=== PATIENT | female | born 1965 | race Caucasian/White ===

== ENCOUNTER 2016-10-13 00:37 | Inpatient (IN) | payer OTHER, MEDICAID ==
[~2016-10-13] VITALS: Ht 172.7 cm; Wt 76.9 kg
[~2016-10-13 00:37] MED LIST: CALC667T2 PO; DULO60CA PO; ERGO1CAP6 PO; GABA-494 PO; GLYB; HYDR200T PO; LANT1000 PO; LEVE500T22 PO; LEVEMIR SC; LORA-622 PO; LORA1TAB12 PO; METO-158 PO; MULT-397 OR; Pantoprazole Sodium Sesquihydr PO; SIMV-13 PO; TRAM50TA2 PO; TRAZ100T2 PO
[2016-10-13 01:54] LABS: Basophils # (auto) 0 uL; Basophils % (auto) 0.4 % (0.0-2.0); Eosinophils # (auto) 0.2 uL; Eosinophils % (auto) 1.8 % (0.0-7.0); Hematocrit 31.8 % (36.0-46.0); Hemoglobin 10.8 g/dL (12.2-16.2); Lymphocytes # (auto) 2.6 uL; Lymphocytes % (auto) 27.5 % (10.0-50.0); Mean Corpuscular Hemoglobin 33.2 pg (28.0-32.0); Mean Corpuscular Volume 97.6 fL (80.0-100.0); Mean Platelet Volume 9.5 fL (7.4-10.4); Monocytes # (auto) 0.7 uL; Neutrophils % (auto) 63.3 % (37.0-80.0); Platelet Count (auto) 221 10^3/uL (140-450); Red Cell Distribution Width 13.9 % (11.6-16.0); White Blood Cell 9.5 10^3/uL (4.4-10.8)
[2016-10-13 02:31] LABS: Urine Bilirubin Negative (Negative); Urine Color Yellow (Yellow); Urine Ketone Negative (Negative); Urine Nitrite Negative (Negative); Urine RBC 26 /hpf (0 - 4); Urine Squamous Epithelial Cell FEW /hpf (<5); Urine WBC Clumps PRESENT /hpf (None Seen); Urine pH 5.5 (5.0-8.0)
[2016-10-13 02:36] LABS: BUN/Creatinine Ratio 8.5; Calcium 6.1 mg/dL (8.5-10.1); Potassium 4.4 mmol/L (3.5-5.1)
[2016-10-13 02:39] LABS: Bilirubin, Total 0.2 mg/dL (0.2-1.0); Total Protein 6.7 g/dL (6.4-8.2)
[2016-10-13] MEDS ORDERED: HYDROmorphone HCL 2 MG/ML VL IV ONE (02:45)
[2016-10-13] MEDS ORDERED: ONDANSETRON HCL 4 MG/2 ML VIAL IV ONE (02:45)
[2016-10-13 02:54] LABS: Urine Blood 1+ /uL (Negative); Urine Glucose 4+ mg/dL (Normal)
[2016-10-13 03:04] LABS: INR 1.05 (0.9-1.15); Partial Thromboplastin Time 27.1 sec (22.64-33.71); Prothrombin Time 10.8 sec (9.37-12.3)
[2016-10-13 03:27] LABS: Magnesium 1.8 mg/dL (1.6-2.6)
[2016-10-13 03:34] LABS: B-Type Natriuretic Peptide 74.43 pg/mL (0-100)
[2016-10-13] MEDS ORDERED: LORA-154 PO (03:47)
[2016-10-13] MEDS ORDERED: ATE50T PO (03:47)
[2016-10-13] MEDS ORDERED: KEP500T PO (03:47)
[2016-10-13] MEDS ORDERED: SIMV-13 PO (03:47)
[2016-10-13] MEDS ORDERED: NEOM1SOL19 OT (03:47)
[2016-10-13] MEDS ORDERED: DULO1CAP3 PO (03:47)
[2016-10-13] MEDS ORDERED: LEVEMIR SC (03:47)
[2016-10-13] MEDS ORDERED: PAR20T PO (03:47)
[2016-10-13] MEDS ORDERED: CALC667T2 PO (03:47)
[2016-10-13] MEDS ORDERED: NIFE20CA PO (03:47)
[2016-10-13] MEDS ORDERED: ASPI-407 PO (03:47)
[2016-10-13] MEDS ORDERED: CHOL20009 PO (03:47)
[2016-10-13] MEDS ORDERED: PANT40T PO (03:47)
[2016-10-13] MEDS ORDERED: LORA1TAB12 PO (03:47)
[2016-10-13] MEDS ORDERED: GABA-494 PO (03:47)
[2016-10-13] MEDS ORDERED: CIPR500T20 PO (03:47)
[2016-10-13] MEDS ORDERED: HYDR200T36 PO (03:47)
[2016-10-13] MEDS ORDERED: NIC21P TOP (03:48)
[2016-10-13 04:12] LABS: Temperature: 21.2 C (20.0-25.0)
[2016-10-13] MEDS ORDERED: InsuLIN REG 1unit/0.01ml Soln (100units/ml) IV ONE (04:45)
[2016-10-13] MEDS ORDERED: CEFTRIAXONE SODIUM 2 GM in D5W 5% 50 ML IV ONE (05:00)
[2016-10-13] MEDS ORDERED: cefTRIAXone 1GM/50ML D5W 50 ML IV ONE (05:23)
[2016-10-13] MEDS ORDERED: cefTRIAXone SOD 1,000 MG VL ONE (05:23)
[2016-10-13] MEDS ORDERED: ACETAMINOPHEN 325 MG TAB PO PRN (06:45)
[2016-10-13] MEDS ORDERED: DEXTROSE (50%) 50ML SYRG IV PRN (06:45)
[2016-10-13] MEDS ORDERED: ONDANSETRON HCL 4 MG/2 ML VIAL IV PRN (06:45)
[2016-10-13] MEDS ORDERED: cloNIDine HCL 0.1 MG TAB PO PRN (06:45)
[2016-10-13] MEDS ORDERED: MORPHINE SULF INJ 2 MG/ML SYRINGE 1ML IV PRN (06:45)
[2016-10-13 08:53] VITALS: BP 134/67
[2016-10-13] MEDS ORDERED: FAMOTIDINE 20 MG TAB PO SCH (10:00)
[2016-10-13] MEDS: ASPirin 325 MG TAB PO SCH (11:00)
[2016-10-13] MEDS: FLUCONAZOLE 100 MG TAB PO SCH (11:01)
[2016-10-13] MEDS: CALCIUM ACETATE 667 MG CAP PO SCH ×3 (11:01→18:07)
[2016-10-13] MEDS: LEVETIRACETAM 500 MG TAB PO SCH ×2 (11:02→21:45)
[2016-10-13] MEDS: ATENOLOL 50 MG TAB PO SCH (11:03)
[2016-10-13] MEDS: FAMOTIDINE 20 MG TAB PO SCH (11:04)
[2016-10-13] MEDS: NIFEdipine ER 30 MG TAB PO SCH (11:04)
[2016-10-13] MEDS: ENOXAPARIN SOD 30 MG/0.3 ML SYRINGE SC SCH (11:12)
[2016-10-13] MEDS: ACCU-CHEK COMFORT CURVE STRIP VI SCH ×3 (12:00→21:51)
[2016-10-13 13:48] VITALS: BP 147/64
[2016-10-13] MEDS: GABAPENTIN 100 MG CAP PO SCH ×2 (14:57→21:46)
[2016-10-13] MEDS: traMADol HCL 50 MG TAB PO PRN (14:57)
[2016-10-13] MEDS: LORazepam 0.5 MG TAB PO PRN (14:58)
[2016-10-13 17:29] VITALS: BP 140/71
[2016-10-13] MEDS: InsuLIN REG 1unit/0.01ml Soln (100units/ml) SC SCH ×3 (18:04→21:55)
[2016-10-13 20:00] VITALS: BP 140/73
[2016-10-13] MEDS: MORPHINE SULF INJ 2 MG/ML SYRINGE 1ML IV PRN (20:44)
[2016-10-13 22:00] VITALS: BP 140/73
[2016-10-14] VITALS (7 sets, daily range): BP systolic 127–147; BP diastolic 60–72
[2016-10-14] MEDS: MORPHINE SULF INJ 2 MG/ML SYRINGE 1ML IV PRN (02:50)
[2016-10-14] MEDS: traMADol HCL 50 MG TAB PO PRN ×3 (03:18→22:00)
[2016-10-14] MEDS: cefTRIAXone 1GM/50ML D5W 50 ML IV SCH (05:38)
[2016-10-14] MEDS: GABAPENTIN 100 MG CAP PO SCH ×3 (05:38→21:57)
[2016-10-14] MEDS: ACCU-CHEK COMFORT CURVE STRIP VI SCH ×4 (05:40→23:58)
[2016-10-14] MEDS: InsuLIN REG 1unit/0.01ml Soln (100units/ml) SC SCH ×3 (05:40→18:24)
[2016-10-14 06:43] LABS: Basophils # (auto) 0 uL; Basophils % (auto) 0.3 % (0.0-2.0); Eosinophils # (auto) 0.3 uL; Eosinophils % (auto) 2.6 % (0.0-7.0); Hematocrit 34.2 % (36.0-46.0); Hemoglobin 11.5 g/dL (12.2-16.2); Lymphocytes # (auto) 2.7 uL; Lymphocytes % (auto) 23.6 % (10.0-50.0); Mean Corpuscular Hemoglobin 33.1 pg (28.0-32.0); Mean Corpuscular Hgb Conc. 33.7 g/dL (32.0-36.0); Mean Corpuscular Volume 98.3 fL (80.0-100.0); Mean Platelet Volume 10.2 fL (7.4-10.4); Monocytes # (auto) 0.6 uL; Monocytes % (auto) 5.3 % (0.0-12.0); Neutrophils # (auto) 7.7 uL; Neutrophils % (auto) 68.2 % (37.0-80.0); Platelet Count (auto) 246 10^3/uL (140-450); Red Cell Distribution Width 13.6 % (11.6-16.0); White Blood Cell 11.3 10^3/uL (4.4-10.8)
[2016-10-14] MEDS: HYDROmorphone HCL 2 MG/ML VL IV PRN ×2 (07:02→20:19)
[2016-10-14 07:19] LABS: Albumin 3.6 g/dL (3.4-5.0); BUN/Creatinine Ratio 11.2; Bilirubin, Total 0.4 mg/dL (0.2-1.0); Calcium 6.4 mg/dL (8.5-10.1); Magnesium 1.8 mg/dL (1.6-2.6); Potassium 5.2 mmol/L (3.5-5.1); Total Protein 7.6 g/dL (6.4-8.2)
[2016-10-14] MEDS: ASPirin 325 MG TAB PO SCH (10:19)
[2016-10-14] MEDS: FAMOTIDINE 20 MG TAB PO SCH (10:20)
[2016-10-14] MEDS: FLUCONAZOLE 100 MG TAB PO SCH (10:20)
[2016-10-14] MEDS: ENOXAPARIN SOD 30 MG/0.3 ML SYRINGE SC SCH (10:21)
[2016-10-14] MEDS: NIFEdipine ER 30 MG TAB PO SCH (10:21)
[2016-10-14] MEDS: LEVETIRACETAM 500 MG TAB PO SCH ×2 (10:21→21:57)
[2016-10-14] MEDS: ATENOLOL 50 MG TAB PO SCH (10:21)
[2016-10-14] MEDS: LORazepam 0.5 MG TAB PO PRN ×2 (13:59→23:15)
[2016-10-14] MEDS: CALCIUM ACETATE 667 MG CAP PO SCH ×3 (15:07→18:23)
[2016-10-15] VITALS (7 sets, daily range): BP systolic 109–127; BP diastolic 57–69
[2016-10-15] MEDS: traMADol HCL 50 MG TAB PO PRN (04:07)
[2016-10-15] MEDS: cefTRIAXone 1GM/50ML D5W 50 ML IV SCH (05:31)
[2016-10-15] MEDS: GABAPENTIN 100 MG CAP PO SCH ×3 (05:31→22:00)
[2016-10-15] MEDS: ACCU-CHEK COMFORT CURVE STRIP VI SCH ×3 (05:47→17:59)
[2016-10-15] MEDS: InsuLIN REG 1unit/0.01ml Soln (100units/ml) SC SCH ×4 (05:49→18:07)
[2016-10-15 07:07] LABS: BUN/Creatinine Ratio 13.6; Calcium 6.6 mg/dL (8.5-10.1); Potassium 4.8 mmol/L (3.5-5.1)
[2016-10-15] MEDS ORDERED: SODIUM CHL 0.9% 1000 ML BAG XX ONE (08:00)
[2016-10-15] MEDS: ASPirin 325 MG TAB PO SCH (09:12)
[2016-10-15] MEDS: CALCIUM ACETATE 667 MG CAP PO SCH ×3 (09:13→17:59)
[2016-10-15] MEDS: LEVETIRACETAM 500 MG TAB PO SCH ×2 (09:13→22:01)
[2016-10-15] MEDS: FLUCONAZOLE 100 MG TAB PO SCH (09:15)
[2016-10-15] MEDS: FAMOTIDINE 20 MG TAB PO SCH (09:15)
[2016-10-15] MEDS: ATENOLOL 50 MG TAB PO SCH (09:15)
[2016-10-15] MEDS: NIFEdipine ER 30 MG TAB PO SCH (09:16)
[2016-10-15] MEDS: ENOXAPARIN SOD 30 MG/0.3 ML SYRINGE SC SCH (09:16)
[2016-10-15] MEDS: HYDROmorphone HCL 2 MG/ML VL IV PRN ×3 (09:17→22:00)
[2016-10-15] MEDS: LORazepam 0.5 MG TAB PO PRN (22:00)
[2016-10-16 05:00] VITALS: BP 111/59
[2016-10-16] MEDS: cefTRIAXone 1GM/50ML D5W 50 ML IV SCH (05:58)
[2016-10-16] MEDS: InsuLIN REG 1unit/0.01ml Soln (100units/ml) SC SCH ×3 (06:00→11:42)
[2016-10-16] MEDS: GABAPENTIN 100 MG CAP PO SCH (06:09)
[2016-10-16] MEDS: HYDROmorphone HCL 2 MG/ML VL IV PRN (06:09)
[2016-10-16] MEDS: ACCU-CHEK COMFORT CURVE STRIP VI SCH ×3 (06:16→11:41)
[2016-10-16 06:48] LABS: BUN/Creatinine Ratio 14.1; Calcium 6.6 mg/dL (8.5-10.1); Potassium 4.3 mmol/L (3.5-5.1)
[2016-10-16 08:00] VITALS: BP 125/52
[2016-10-16] MEDS: NIFEdipine ER 30 MG TAB PO SCH (10:00)
[2016-10-16] MEDS: ATENOLOL 50 MG TAB PO SCH (10:00)
[2016-10-16] MEDS: ENOXAPARIN SOD 30 MG/0.3 ML SYRINGE SC SCH (11:34)
[2016-10-16] MEDS: CALCIUM ACETATE 667 MG CAP PO SCH (11:34)
[2016-10-16] MEDS: FLUCONAZOLE 100 MG TAB PO SCH (11:34)
[2016-10-16] MEDS: LEVETIRACETAM 500 MG TAB PO SCH (11:34)
[2016-10-16] MEDS: FAMOTIDINE 20 MG TAB PO SCH (11:35)
[2016-10-16] MEDS: ASPirin 325 MG TAB PO SCH (11:35)
[2016-10-16 12:30] VITALS: BP 143/76
[2016-10-16 13:52] VITALS: BP 143/76
== END 2016-10-16 14:50 | disposition home or self-care (01) | DRG 690 ==
LOC: ER 00:43 → OVERFLOW 00:44 → EAST 09:37 → CENTRAL 09:49
PROVIDERS: ADMIT Internal Medicine; ATTEND Internal Medicine
PROC: 5A1D00Z (ICD-10-PCS; principal; 2016-10-16)
DX: N10 Acute pyelonephritis (principal); B48.8 Other specified mycoses; I12.0 Hypertensive chronic kidney disease with stage 5 chronic kidney disease or end stage renal disease; N18.6 End stage renal disease; D63.8 Anemia in other chronic diseases classified elsewhere; E11.21 Type 2 diabetes mellitus with diabetic nephropathy; E78.5 Hyperlipidemia, unspecified; E11.22 Type 2 diabetes mellitus with diabetic chronic kidney disease; F17.210 Nicotine dependence, cigarettes, uncomplicated; M54.9 Dorsalgia, unspecified; Z82.49 Family history of ischemic heart disease and other diseases of the circulatory system; Z83.3 Family history of diabetes mellitus; Z88.5 Allergy status to narcotic agent; Z99.2 Dependence on renal dialysis; Z88.1 Allergy status to other antibiotic agents; Z79.82 Long term (current) use of aspirin; Z79.899 Other long term (current) drug therapy; Z90.710 Acquired absence of both cervix and uterus; Z84.1 Family history of disorders of kidney and ureter; Z79.4 Long term (current) use of insulin
CPT/HCPCS: 36415; 71010; 80048; 80053; 81001; 82150; 82962; 83036; 83690; 83735; 83880; 84484; 85025; 85610; 85730; 87081; 87086; 90935; 96365; 96375; J0696; J1815; J2405; J7060

== ENCOUNTER 2017-04-26 08:33 | Emergency (ER) | payer OTHER, MEDICAID ==
[~2017-04-26] VITALS: Ht 172.7 cm; Wt 78.6 kg
[~2017-04-26 08:33] MED LIST changes: +ASPI-407 PO; +ATE50T PO; +CHOL20009 PO; +GAB100C PO; +HYDR-2651 PO; -METO-158 PO; +NIC21P TOP; +NIF30XLT PO; +PANT40T PO; +PAR20T PO; -Pantoprazole Sodium Sesquihydr PO
[2017-04-26 09:56] LABS: Basophils # (auto) 0.1 uL; Basophils % (auto) 0.7 % (0.0-2.0); Eosinophils # (auto) 0.2 uL; Hematocrit 27.7 % (36.0-46.0); Hemoglobin 9.7 g/dL (12.2-16.2); Lymphocytes # (auto) 1.7 uL; Mean Platelet Volume 8.8 fL (6.9-10.8); Monocytes # (auto) 0.7 uL; Platelet Count (auto) 169 10^3/uL (140-450)
[2017-04-26 10:00] LABS: Eosinophils % (auto) 2.5 % (0.0-7.0); Lymphocytes % (auto) 18.9 % (10.0-50.0); Mean Corpuscular Hemoglobin 35.5 pg (28.0-32.0); Mean Corpuscular Volume 101.3 fL (80.0-100.0); Monocytes % (auto) 7.3 % (0.0-12.0); Neutrophils # (auto) 6.5 uL; Neutrophils % (auto) 70.6 % (37.0-80.0); Red Cell Distribution Width 14.1 % (11.8-14.3); White Blood Cell 9.2 10^3/uL (4.4-10.8)
[2017-04-26 10:04] LABS: Albumin 3.5 g/dL (3.4-5.0); BUN/Creatinine Ratio 10.7; Bilirubin, Total 0.3 mg/dL (0.2-1.0); Calcium 6.3 mg/dL (8.5-10.1); Potassium 4.6 mmol/L (3.5-5.1); Total Protein 7.3 g/dL (6.4-8.2)
[2017-04-26 11:20] VITALS: BP 168/95
[2017-04-26 11:59] LABS: Urine Bilirubin Negative (Negative); Urine Blood 2+ /uL (Negative); Urine Color Yellow (Yellow); Urine Glucose Normal (Normal); Urine Ketone Negative (Negative); Urine Nitrite Negative (Negative); Urine RBC 14 /hpf (0 - 4); Urine Squamous Epithelial Cell FEW /hpf (<5); Urine Urobilinogen Normal (Negative); Urine WBC Clumps PRESENT /hpf (None Seen); Urine pH 5.5 (5.0-8.0)
[2017-04-26] MEDS ORDERED: CIPROFLOXACIN HCL 500 MG TAB PO ONE (12:30)
== END 2017-04-26 12:46 | disposition home or self-care (01) ==
LOC: ER 08:33
DX: N39.0 Urinary tract infection, site not specified (principal); E11.22 Type 2 diabetes mellitus with diabetic chronic kidney disease; I12.0 Hypertensive chronic kidney disease with stage 5 chronic kidney disease or end stage renal disease; N18.6 End stage renal disease; Z99.2 Dependence on renal dialysis; F17.210 Nicotine dependence, cigarettes, uncomplicated; Z79.4 Long term (current) use of insulin; Z88.6 Allergy status to analgesic agent; Z88.1 Allergy status to other antibiotic agents
CPT/HCPCS: 36415; 51702; 80053; 81001; 85025

== ENCOUNTER 2017-06-30 20:20 | Emergency (ER) | payer OTHER, MEDICAID ==
[~2017-06-30] VITALS: Ht 172.7 cm; Wt 81.6 kg
[~2017-06-30 20:20] MED LIST changes: -HYDR-2651 PO; +HYDR25TA35 PO
[2017-06-30 21:10] LABS: Urine Bilirubin Negative (Negative); Urine Blood 1+ /uL (Negative); Urine Color Yellow (Yellow); Urine Glucose Normal (Normal); Urine Ketone Negative (Negative); Urine Mucus FEW (None Seen); Urine Nitrite Negative (Negative); Urine RBC 12 /hpf (0 - 4); Urine Squamous Epithelial Cell FEW /hpf (<5); Urine Urobilinogen Normal (Negative); Urine WBC Clumps PRESENT /hpf (None Seen)
[2017-06-30 22:17] LABS: Basophils # (auto) 0.1 uL; Eosinophils # (auto) 0.2 uL; Mean Platelet Volume 8.3 fL (6.9-10.8); Monocytes # (auto) 0.7 uL; Nucleated Red Blood Cells % 0.1 %; Platelet Count (auto) 175 10^3/uL (140-450)
[2017-06-30 22:20] LABS: Basophils % (auto) 0.7 % (0.0-2.0); Eosinophils % (auto) 2.2 % (0.0-7.0); Hematocrit 26.8 % (36.0-46.0); Hemoglobin 9.6 g/dL (12.2-16.2); Mean Corpuscular Hemoglobin 36.8 pg (28.0-32.0); Mean Corpuscular Hgb Conc. 35.7 g/dL (32.0-36.0); Mean Corpuscular Volume 102.9 fL (80.0-100.0); Neutrophils # (auto) 7.1 uL; Neutrophils % (auto) 70.1 % (37.0-80.0); Red Cell Distribution Width 14.2 % (11.8-14.3); White Blood Cell 10.2 10^3/uL (4.4-10.8)
[2017-06-30 22:37] LABS: Albumin 3.5 g/dL (3.4-5.0); BUN/Creatinine Ratio 11.6; Potassium 4.8 mmol/L (3.5-5.1)
[2017-06-30 22:40] LABS: Bilirubin, Total 0.3 mg/dL (0.2-1.0); Total Protein 7.2 g/dL (6.4-8.2)
[2017-07-01] MEDS ORDERED: NALBUPHINE HCL 10 MG/1ml INJECTION IV ONE (00:45)
[2017-07-01] MEDS ORDERED: TEMAZEPAM 15 MG CAP PO ONE (01:00)
[2017-07-01 02:10] VITALS: BP 173/79
== END 2017-07-01 01:16 | disposition home or self-care (01) ==
LOC: ER 20:20
DX: M79.602 Pain in left arm (principal); E11.22 Type 2 diabetes mellitus with diabetic chronic kidney disease; I12.0 Hypertensive chronic kidney disease with stage 5 chronic kidney disease or end stage renal disease; N18.6 End stage renal disease; E78.5 Hyperlipidemia, unspecified; D64.9 Anemia, unspecified; F17.210 Nicotine dependence, cigarettes, uncomplicated; Z99.2 Dependence on renal dialysis; Z79.4 Long term (current) use of insulin; Z79.82 Long term (current) use of aspirin
CPT/HCPCS: 36415; 73200; 80053; 81001; 85025; 96374; 99285; J2300

== ENCOUNTER 2017-07-01 18:41 | Emergency (ER) | payer OTHER, MEDICAID ==
[~2017-07-01] VITALS: Ht 172.7 cm; Wt 77.1 kg
[2017-07-01 20:57] LABS: Basophils # (auto) 0.1 uL; Eosinophils # (auto) 0.2 uL; Mean Corpuscular Volume 103.4 fL (80.0-100.0)
[2017-07-01 20:59] LABS: Basophils % (auto) 0.6 % (0.0-2.0); Eosinophils % (auto) 2.7 % (0.0-7.0); Hematocrit 25.9 % (36.0-46.0); Lymphocytes # (auto) 1.6 uL; Lymphocytes % (auto) 17.7 % (10.0-50.0); Mean Corpuscular Hemoglobin 36.1 pg (28.0-32.0); Mean Corpuscular Hgb Conc. 34.9 g/dL (32.0-36.0); Mean Platelet Volume 8.3 fL (6.9-10.8); Monocytes # (auto) 0.7 uL; Monocytes % (auto) 7.2 % (0.0-12.0); Neutrophils # (auto) 6.6 uL; Neutrophils % (auto) 71.8 % (37.0-80.0); Nucleated Red Blood Cells % 0.1 %; Platelet Count (auto) 163 10^3/uL (140-450); Red Cell Distribution Width 14.5 % (11.8-14.3); White Blood Cell 9.2 10^3/uL (4.4-10.8)
[2017-07-01] MEDS ORDERED: NALBUPHINE HCL 10 MG/1ml INJECTION IV ONE (21:00)
[2017-07-01] MEDS ORDERED: ONDANSETRON HCL 4 MG/2 ML VIAL IV ONE (21:00)
[2017-07-01] MEDS ORDERED: SODIUM CHLORIDE 0.9% 1,000 ML IV ONE (21:00)
[2017-07-01 21:14] LABS: Albumin 3.5 g/dL (3.4-5.0); BUN/Creatinine Ratio 12.7; Bilirubin, Total 0.3 mg/dL (0.2-1.0); Calcium 7.1 mg/dL (8.5-10.1); Total Protein 7.2 g/dL (6.4-8.2)
[2017-07-01] MEDS ORDERED: TEMAZEPAM 15 MG CAP PO ONE (22:00)
[2017-07-02 00:14] VITALS: BP 153/73
[2017-07-02 00:38] LABS: Urine Bilirubin Negative (Negative); Urine Blood 2+ /uL (Negative); Urine Color Yellow (Yellow); Urine Glucose TRACE mg/dL (Normal); Urine Ketone Negative (Negative); Urine Nitrite Negative (Negative); Urine RBC 33 /hpf (0 - 4); Urine Urobilinogen Normal (Negative); Urine WBC Clumps PRESENT /hpf (None Seen)
== END 2017-07-02 01:21 | disposition home or self-care (01) ==
LOC: ER 18:41
DX: E11.22 Type 2 diabetes mellitus with diabetic chronic kidney disease (principal); I12.0 Hypertensive chronic kidney disease with stage 5 chronic kidney disease or end stage renal disease; N18.6 End stage renal disease; G89.4 Chronic pain syndrome; G47.00 Insomnia, unspecified; E78.5 Hyperlipidemia, unspecified; Z79.4 Long term (current) use of insulin; F17.210 Nicotine dependence, cigarettes, uncomplicated; Z90.710 Acquired absence of both cervix and uterus; Z79.82 Long term (current) use of aspirin; Z88.6 Allergy status to analgesic agent; Z88.8 Allergy status to other drugs, medicaments and biological substances
CPT/HCPCS: 36415; 51702; 80053; 80307; 81001; 85025; 93005; 94761; 96361; 96374; 96375; 99285; J2300; J2405; J7030

== ENCOUNTER 2017-07-25 21:27 | Emergency (ER) | payer OTHER, MEDICAID ==
[~2017-07-25] VITALS: Ht 177.8 cm; Wt 80.7 kg
[~2017-07-25 21:27] MED LIST changes: -GABA-494 PO; +GABA100C9 PO
[2017-07-25 21:42] VITALS: BP 190/76
[2017-07-26] MEDS ORDERED: cefTRIAXone SOD 1,000 MG VL IM ONE (05:30)
[2017-07-26] MEDS ORDERED: HYDROmorphone HCL 2 MG/ML VL IM ONE (05:30)
[2017-07-26] MEDS ORDERED: ONDANSETRON ODT 4 MG TAB PO ONE (05:30)
[2017-07-26 05:50] LABS: Urine Bacteria FEW /hpf (None Seen); Urine Blood TRACE /uL (Negative); Urine Specific Gravity 1.019 (1.001-1.035); Urine WBC 348 /hpf (0 - 5)
== END 2017-07-26 07:08 | disposition home or self-care (01) ==
LOC: EDBD 21:27 → ER 21:41
DX: I12.0 Hypertensive chronic kidney disease with stage 5 chronic kidney disease or end stage renal disease (principal); N18.6 End stage renal disease; N39.0 Urinary tract infection, site not specified; E11.22 Type 2 diabetes mellitus with diabetic chronic kidney disease; E78.5 Hyperlipidemia, unspecified; M79.7 Fibromyalgia; F17.210 Nicotine dependence, cigarettes, uncomplicated; Z88.6 Allergy status to analgesic agent; Z88.8 Allergy status to other drugs, medicaments and biological substances; Z79.82 Long term (current) use of aspirin; Z90.710 Acquired absence of both cervix and uterus; Z79.4 Long term (current) use of insulin
CPT/HCPCS: 81001; 96372; 99284; J0696; J1170; Q0162

== ENCOUNTER 2017-08-10 15:59 | Emergency (ER) | payer OTHER, MEDICAID ==
[~2017-08-10] VITALS: Ht 172.7 cm; Wt 83.1 kg
[2017-08-10 17:59] VITALS: BP 159/58
[2017-08-10] MEDS ORDERED: KETOROLAC TROMETH 60MG/2ML VIAL IM ONE (19:30)
== END 2017-08-10 19:45 | disposition home or self-care (01) ==
LOC: ER 16:02
DX: M79.605 Pain in left leg (principal); M79.604 Pain in right leg; E11.22 Type 2 diabetes mellitus with diabetic chronic kidney disease; I12.0 Hypertensive chronic kidney disease with stage 5 chronic kidney disease or end stage renal disease; N18.6 End stage renal disease; E78.5 Hyperlipidemia, unspecified; F17.210 Nicotine dependence, cigarettes, uncomplicated; Z99.2 Dependence on renal dialysis; Z90.710 Acquired absence of both cervix and uterus; Z88.6 Allergy status to analgesic agent; Z79.4 Long term (current) use of insulin; Z79.82 Long term (current) use of aspirin
CPT/HCPCS: 82962; 96372; 99283; J1885

== ENCOUNTER 2018-04-06 11:26 | Emergency (ER) | payer OTHER, MEDICAID ==
[~2018-04-06] VITALS: Ht 172.7 cm; Wt 81.6 kg
[~2018-04-06 11:26] MED LIST changes: +HYDR-4296 PO; +HYDR-4441 PO; -HYDR200T PO; -HYDR25TA35 PO
[2018-04-06] MEDS ORDERED: SODIUM CHLORIDE 0.9% 1,000 ML IV ONE (12:33)
[2018-04-06 12:40] LABS: Basophils # (auto) 0 uL; Basophils % (auto) 0.3 % (0.0-2.0); Eosinophils # (auto) 0.1 uL; Eosinophils % (auto) 1.4 % (0.0-7.0); Hematocrit 32.4 % (36.0-46.0); Hemoglobin 11.3 g/dL (12.2-16.2); Lymphocytes # (auto) 1.4 uL; Lymphocytes % (auto) 13.5 % (10.0-50.0); Mean Corpuscular Hemoglobin 33.5 pg (28.0-32.0); Mean Corpuscular Hgb Conc. 34.7 g/dL (32.0-36.0); Mean Corpuscular Volume 96.5 fL (80.0-100.0); Monocytes # (auto) 0.7 uL; Monocytes % (auto) 7.1 % (0.0-12.0); Neutrophils % (auto) 77.7 % (37.0-80.0); Platelet Count (auto) 234 10^3/uL (140-450); Red Blood Cells 3.35 10^6/uL (4.0-5.20); Red Cell Distribution Width 15.1 % (11.8-14.3); White Blood Cell 10.2 10^3/uL (4.4-10.8)
[2018-04-06] MEDS ORDERED: ONDANSETRON HCL 4 MG/2 ML VIAL IV ONE (12:45)
[2018-04-06] MEDS ORDERED: VANCOMYCIN 1GM/250ML 250 ML IV ONE (12:45)
[2018-04-06] MEDS ORDERED: NALBUPHINE HCL 10 MG/1ml INJECTION IV ONE ×2 (12:45→16:15)
[2018-04-06 12:58] LABS: Alanine Aminotransferase 12 U/L (13-56); Albumin 3.3 g/dL (3.4-5.0); Anion Gap 10 (5-15); Aspartate Aminotransferase 10 U/L (15-37); Blood Urea Nitrogen 63 mg/dL (7-18); Calcium 7.7 mg/dL (8.5-10.1); Carbon Dioxide 26 mmol/L (21-32); Chloride 103 mmol/L (98-107); GFR African American 9 mL/min; GFR Non-African American 7 mL/min; Glucose 98 mg/dL (74-106); Potassium 4.5 mmol/L (3.5-5.1); Sodium 139 mmol/L (136-145)
[2018-04-06 13:02] LABS: Alkaline Phosphatase 99 U/L (45-117); Bilirubin, Total 0.5 mg/dL (0.2-1.0); Total Protein 7.3 g/dL (6.4-8.2)
[2018-04-06 13:15] LABS: INR 0.96 (0.9-1.15); Partial Thromboplastin Time 28.8 sec (23.78-33.04); Prothrombin Time 10.3 sec (9.27-12.13)
[2018-04-06 16:38] LABS: Urine Bacteria FEW /hpf (None Seen); Urine Blood Negative /uL (Negative); Urine Specific Gravity 1.018 (1.001-1.035); Urine WBC 787 /hpf (0 - 5); Urine WBC Clumps PRESENT /hpf (None Seen)
[2018-04-06 17:59] VITALS: BP 142/62
== END 2018-04-06 19:04 | disposition short-term general hospital (02) ==
LOC: ER 11:26
DX: T82.858A Stenosis of other vascular prosthetic devices, implants and grafts, initial encounter (principal); N17.9 Acute kidney failure, unspecified; L03.114 Cellulitis of left upper limb; E03.9 Hypothyroidism, unspecified; D64.89 Other specified anemias; I25.810 Atherosclerosis of coronary artery bypass graft(s) without angina pectoris; E11.22 Type 2 diabetes mellitus with diabetic chronic kidney disease; I12.0 Hypertensive chronic kidney disease with stage 5 chronic kidney disease or end stage renal disease; N18.6 End stage renal disease; I25.2 Old myocardial infarction; E78.5 Hyperlipidemia, unspecified; F17.210 Nicotine dependence, cigarettes, uncomplicated; E46 Unspecified protein-calorie malnutrition; Z88.5 Allergy status to narcotic agent; Z88.1 Allergy status to other antibiotic agents; Z88.8 Allergy status to other drugs, medicaments and biological substances; Z79.4 Long term (current) use of insulin; Z79.899 Other long term (current) drug therapy; Z95.1 Presence of aortocoronary bypass graft; Z99.2 Dependence on renal dialysis; Z90.710 Acquired absence of both cervix and uterus; Z68.27 Body mass index [BMI] 27.0-27.9, adult; Y84.1 Kidney dialysis as the cause of abnormal reaction of the patient, or of later complication, without mention of misadventure at the time of the procedure; Y92.89 Other specified places as the place of occurrence of the external cause
CPT/HCPCS: 36415; 71046; 80053; 81001; 83735; 84443; 84484; 85025; 85610; 85730; 93005; 93930; 94761; 96365; 96375; 96376; 99285; J2300; J2405; J3370; J7030

== ENCOUNTER 2018-12-17 15:34 | Emergency (ER) | payer OTHER, MEDICAID ==
[~2018-12-17] VITALS: Ht 172.7 cm; Wt 83.0 kg
[2018-12-17 16:46] LABS: Eosinophils % (auto) 0.8 % (0.0-7.0); Hemoglobin 10.5 g/dL (12.2-16.2); Lymphocytes # (auto) 0.7 uL; Lymphocytes % (auto) 11.1 % (10.0-50.0); Monocytes # (auto) 0.5 uL; Nucleated Red Blood Cells % 0.1 %
[2018-12-17 16:47] LABS: Basophils # (auto) 0 uL; Basophils % (auto) 0.6 % (0.0-2.0); Eosinophils # (auto) 0 uL; Mean Corpuscular Hemoglobin 34.6 pg (28.0-32.0); Mean Corpuscular Hgb Conc. 34.9 g/dL (32.0-36.0); Monocytes % (auto) 8.4 % (0.0-12.0); Neutrophils % (auto) 79.1 % (37.0-80.0); Platelet Count (auto) 150 10^3/uL (140-450); Red Blood Cells 3.03 10^6/uL (4.0-5.20); White Blood Cell 6.4 10^3/uL (4.4-10.8)
[2018-12-17 17:04] LABS: Albumin 3.4 g/dL (3.4-5.0); BUN/Creatinine Ratio 5.2; Calcium 7.8 mg/dL (8.5-10.1); Potassium 3.6 mmol/L (3.5-5.1)
[2018-12-17 17:06] LABS: Bilirubin, Total 0.5 mg/dL (0.2-1.0); Total Protein 7.2 g/dL (6.4-8.2)
[2018-12-17 18:15] VITALS: BP 98/60
[2018-12-17] MEDS ORDERED: SODIUM CHLORIDE 0.9% 250 ML IV ONE (18:32)
[2018-12-17] MEDS ORDERED: InsuLIN REG 1unit/0.01ml Soln (100units/ml) SC ONE (18:45)
[2018-12-17 19:11] LABS: INR 1.01 (0.9-1.15); Partial Thromboplastin Time 28.5 sec (23.64-32.05)
== END 2018-12-17 19:30 | disposition left against medical advice (07) ==
LOC: EDUNIT# 15:34 → EDBD 15:34 → ER 15:44
DX: T82.838A Hemorrhage due to vascular prosthetic devices, implants and grafts, initial encounter (principal); E11.65 Type 2 diabetes mellitus with hyperglycemia; E11.22 Type 2 diabetes mellitus with diabetic chronic kidney disease; I12.0 Hypertensive chronic kidney disease with stage 5 chronic kidney disease or end stage renal disease; N18.6 End stage renal disease; I25.810 Atherosclerosis of coronary artery bypass graft(s) without angina pectoris; E78.5 Hyperlipidemia, unspecified; I25.2 Old myocardial infarction; F17.210 Nicotine dependence, cigarettes, uncomplicated; Z88.5 Allergy status to narcotic agent; Z88.8 Allergy status to other drugs, medicaments and biological substances; Z88.1 Allergy status to other antibiotic agents; Z79.82 Long term (current) use of aspirin; Z79.4 Long term (current) use of insulin; Z79.899 Other long term (current) drug therapy; Z99.2 Dependence on renal dialysis; Z90.710 Acquired absence of both cervix and uterus; Z95.1 Presence of aortocoronary bypass graft; Y84.1 Kidney dialysis as the cause of abnormal reaction of the patient, or of later complication, without mention of misadventure at the time of the procedure; Y92.89 Other specified places as the place of occurrence of the external cause
CPT/HCPCS: 36415; 71045; 80053; 85025; 85610; 85730; 94761

== ENCOUNTER 2019-01-19 09:09 | Emergency (ER) | payer OTHER, MEDICAID ==
[~2019-01-19] VITALS: Ht 172.7 cm; Wt 81.6 kg
[2019-01-19 09:42] LABS: Urine Bacteria NONE SEEN /hpf (None Seen); Urine Blood TRACE /uL (Negative); Urine Specific Gravity 1.007 (1.001-1.035); Urine WBC 146 /hpf (0 - 5)
[2019-01-19 10:07] LABS: Basophils # (auto) 0.1 uL; Basophils % (auto) 0.9 % (0.0-2.0); Eosinophils # (auto) 0.1 uL; Eosinophils % (auto) 1.7 % (0.0-7.0); Hematocrit 33.7 % (36.0-46.0); Hemoglobin 11.5 g/dL (12.2-16.2); Lymphocytes % (auto) 13.1 % (10.0-50.0); Mean Corpuscular Hemoglobin 33.9 pg (28.0-32.0); Mean Corpuscular Hgb Conc. 34.2 g/dL (32.0-36.0); Mean Corpuscular Volume 98.9 fL (80.0-100.0); Monocytes # (auto) 0.5 uL; Monocytes % (auto) 6.3 % (0.0-12.0); Neutrophils # (auto) 5.9 uL; Platelet Count (auto) 140 10^3/uL (140-450); Red Blood Cells 3.41 10^6/uL (4.0-5.20); Red Cell Distribution Width 15.1 % (11.8-14.3); White Blood Cell 7.6 10^3/uL (4.4-10.8)
[2019-01-19 10:49] VITALS: BP 195/96
[2019-01-19] MEDS ORDERED: cefTRIAXone 1GM/50ML D5W 50 ML IV ONE (11:00)
[2019-01-19 11:55] LABS: Alanine Aminotransferase 17 U/L (13-56)
[2019-01-19 12:20] LABS: Potassium 5.3 mmol/L (3.5-5.1)
[2019-01-19 12:21] LABS: Carbon Dioxide 25 mmol/L (21-32); Chloride 94 mmol/L (98-107); Glucose 120 mg/dL (74-106)
[2019-01-19 12:23] LABS: BUN/Creatinine Ratio 9.8; Blood Urea Nitrogen 97 mg/dL (7-18); GFR African American 5 mL/min; GFR Non-African American 4 mL/min
[2019-01-19 12:24] LABS: Albumin 3.9 g/dL (3.4-5.0); Alkaline Phosphatase 114 U/L (45-117); Aspartate Aminotransferase 7 U/L (15-37); Bilirubin, Total 0.5 mg/dL (0.2-1.0); Calcium 8.1 mg/dL (8.5-10.1); Magnesium 2.6 mg/dL (1.6-2.6); Total Protein 7.9 g/dL (6.4-8.2)
[2019-01-19 12:47] LABS: Anion Gap 13 (5-15); Sodium 132 mmol/L (136-145)
== END 2019-01-19 12:02 | disposition home or self-care (01) ==
LOC: EDBD 09:09 → ER 09:14
DX: I12.0 Hypertensive chronic kidney disease with stage 5 chronic kidney disease or end stage renal disease (principal); E11.22 Type 2 diabetes mellitus with diabetic chronic kidney disease; N18.6 End stage renal disease; N39.0 Urinary tract infection, site not specified; E78.5 Hyperlipidemia, unspecified; I25.2 Old myocardial infarction; Z90.710 Acquired absence of both cervix and uterus; Z98.61 Coronary angioplasty status; Z79.899 Other long term (current) drug therapy; Z88.6 Allergy status to analgesic agent; Z88.1 Allergy status to other antibiotic agents; Z99.2 Dependence on renal dialysis
CPT/HCPCS: 36415; 70450; 71045; 80053; 81001; 83735; 84484; 85025; 93005; 94761; 96365; 99284; J0696

== ENCOUNTER 2019-11-05 12:50 | Inpatient (IN) | payer OTHER, MEDICAID ==
[~2019-11-05] VITALS: Ht 167.6 cm; Wt 90.6 kg
[~2019-11-05 12:50] MED LIST changes: +HYDR-4188 PO; -HYDR-4441 PO; -NIF30XLT PO; +NIFE1TAB36 PO; -TRAZ100T2 PO; +TRAZ100T3 PO
[2019-11-05] MEDS ORDERED: HYDROmorphone HCL 2 MG/ML VL IV ONE (13:15)
[2019-11-05] MEDS ORDERED: ONDANSETRON HCL 4 MG/2 ML VIAL IV ONE (13:15)
[2019-11-05 13:40] LABS: Basophils # (auto) 0 10 ^3/uL (0-0.2); Basophils % (auto) 0.4 % (0.0-2.0); Eosinophils # (auto) 0.1 10 ^3/uL (0-0.8); Lymphocytes # (auto) 0.9 10 ^3/uL (0.4-5.4); Monocytes # (auto) 0.6 10 ^3/uL (0-1.3); White Blood Cell 7.3 10^3/uL (4.4-10.8)
[2019-11-05 13:42] LABS: Eosinophils % (auto) 1.9 % (0.0-7.0); Lymphocytes % (auto) 11.7 % (10.0-50.0); Mean Corpuscular Hemoglobin 33.5 pg (28.0-32.0); Mean Corpuscular Hgb Conc. 33.5 g/dL (32.0-36.0); Mean Corpuscular Volume 99.9 fL (80.0-100.0); Monocytes % (auto) 7.8 % (0.0-12.0); Neutrophils # (auto) 5.7 10 ^3/uL (1.6-8.6); Neutrophils % (auto) 78.2 % (37.0-80.0); Platelet Count (auto) 153 10^3/uL (140-450); Red Cell Distribution Width 15.5 % (11.8-14.3)
[2019-11-05 14:02] LABS: BUN/Creatinine Ratio 12.4; Calcium 7.4 mg/dL (8.5-10.1)
[2019-11-05 14:05] LABS: Bilirubin, Total 0.4 mg/dL (0.2-1.0); Total Protein 6.9 g/dL (6.4-8.2)
[2019-11-05 14:15] LABS: Potassium 6.2 mmol/L (3.5-5.1)
[2019-11-05] MEDS ORDERED: SODIUM BICARBONATE 8.4 % INJ 50ML VIAL IV ONE (14:30)
[2019-11-05] MEDS ORDERED: CALCIUM GLUC 4.65meq/50ml D5AE 50 ML IV ONE (14:30)
[2019-11-05] MEDS ORDERED: SODIUM ZIRCONIUM CYCL 10 GM PAK PO ONE (15:45)
[2019-11-05] MEDS ORDERED: ALBUTEROL SULF 2.5 MG/0.5ML(0.5%) NEB SOLN NEB ONE (15:45)
[2019-11-05] MEDS ORDERED: DEXTROSE (50%) 50ML SYRG IV PRN (15:45)
[2019-11-05] MEDS ORDERED: InsuLIN REG 1unit/0.01ml Soln (100units/ml) IV ONE (15:45)
[2019-11-05] MEDS ORDERED: SODIUM BICARBONATE 8.4% INJ 50ML SYRINGE IV ONE (15:45)
[2019-11-05] MEDS ORDERED: NITROGLYCERIN 0.4 MG SL TAB SL PRN ×2 (15:45)
[2019-11-05] MEDS ORDERED: ALUM & MAG HYDROX-SIMETH LIQ(MAALOX) 30 ML PO ONE (15:45)
[2019-11-05] MEDS ORDERED: DEXTROSE (50%) 50ML SYRG IV ONE (15:45)
[2019-11-05] MEDS ORDERED: MORPHINE SULF INJ 2 MG/ML SYRINGE 1ML IV PRN (15:45)
[2019-11-05] MEDS ORDERED: FUROSEMIDE 40 MG/4 ML VIAL IV ONE (15:45)
[2019-11-05] MEDS ORDERED: ERGOCALCIFEROL 50,000 UNIT(1.25MG) CAP PO SCH (15:45)
[2019-11-05] MEDS ORDERED: CALCIUM CHL 100MG/ML 1,000 MG in D5W 5% 100 ML IV ONE (15:45)
[2019-11-05] MEDS ORDERED: ONDANSETRON HCL 4 MG/2 ML VIAL IV PRN ×2 (15:45)
[2019-11-05] MEDS ORDERED: ALUM & MAG HYDROX-SIMETH LIQ(MAALOX) 30 ML PO PRN (15:45)
[2019-11-05] MEDS ORDERED: DOCUSATE SOD 100 MG CAP PO PRN (15:45)
[2019-11-05] MEDS ORDERED: SODIUM CHL 0.9% 1000 ML BAG XX ONE (16:30)
[2019-11-05 17:20] LABS: Cholesterol 87 mg/dL (< 200); Triglycerides 131 mg/dL (< 150)
[2019-11-05 17:25] LABS: HDL Cholesterol 18 mg/dL (40-59); LDL Cholesterol 48 mg/dL (< 100)
[2019-11-05 17:41] VITALS: BP 133/51
[2019-11-05] MEDS: InsuLIN REG 1unit/0.01ml Soln (100units/ml) SC SCH (18:00)
[2019-11-05] MEDS: ACCU-CHEK COMFORT CURVE STRIP VI SCH (18:23)
[2019-11-05] MEDS: CALCIUM ACETATE 667 MG CAP PO SCH (18:28)
[2019-11-05] MEDS: HYDROcodone-ACET 5/325MG TAB PO PRN ×2 (18:28→23:16)
[2019-11-05 18:35] VITALS: BP 185/61
[2019-11-05 20:30] VITALS: BP 142/43
--- NOTE | 2019-11-05 20:45 | NUR ---
Telemetry admit from ER JADEJAQUELINE admitted to Telemetry unit. Patient oriented to Brittny Chao RN primary RN, unit, room, bed, and unit policies regarding patient care and visiting hours. Patient now on continuous telemetry monitoring, tele box #51 and telemetry reading on arrival to unit is sinus rhythm. Patient weighed by bedscale and encouraged to call if they need something. All questions and concerns addressed, patient verbalized understanding. Note: patient alert and oriented x 4, clear speech, follows direction. on room air with even and unlabored respirations, no respiratory distress or SOB noted. patient is able to turn in bed independently. Bed in lowest locked position with side rails up x 2 and call light within reach, bed alarm on. Instructed to call for assistance PRN, will continue to monitor.
[2019-11-05] MEDS ORDERED: EPOETIN ALFA 10,000 UNIT/1 ML VIAL SC ONE (21:00)
[2019-11-05] MEDS: traZODone HCL 50 MG TAB PO SCH (21:42)
[2019-11-05] MEDS: GABAPENTIN 100 MG CAP PO SCH (21:42)
[2019-11-05] MEDS: levETIRAcetam 500 MG TAB PO SCH (21:42)
[2019-11-05] MEDS: ATORVASTATIN 20 MG TAB PO SCH (21:43)
[2019-11-05] MEDS: PARoxetine 20 MG TAB PO SCH (21:43)
[2019-11-05] MEDS: hydrALAZINE HCL 25 MG TAB PO SCH (21:44)
[2019-11-05] MEDS: traMADol HCL 50 MG TAB PO PRN (21:53)
[2019-11-05] MEDS ORDERED: FERR1TAB17 PO (22:03)
[2019-11-05] MEDS ORDERED: FURO1TAB32 PO (22:03)
[2019-11-05] MEDS ORDERED: ATOR1TAB PO (22:03)
[2019-11-05] MEDS ORDERED: METO25TA5 PO (22:03)
[2019-11-05] MEDS ORDERED: APIX2.5T PO (22:03)
--- NOTE | 2019-11-05 22:10 | NUR ---
Wound photo taken of sacral/right upper buttock skin tear. applied barrier cream and optifoam.
--- NOTE | 2019-11-05 23:00 | NUR ---
Anxiety/Pain patient crying, states "I'm just over really whelmed and still in pain." patient reported her right foot was "broken." Patient reported right foot pain and generalized body pain 10/, after tramadol was administered at 2153. Will follow up with antianxiety and pain medication per orders and continue care.
[2019-11-05 23:03] VITALS: BP 142/43
[2019-11-05] MEDS: LORazepam 0.5 MG TAB PO PRN (23:03)
[2019-11-06] VITALS (8 sets, daily range): BP systolic 109–146; BP diastolic 41–62
[2019-11-06] MEDS: ACCU-CHEK COMFORT CURVE STRIP VI SCH ×5 (01:03→23:31)
--- NOTE | 2019-11-06 01:35 | NUR ---
Rounds patient crying states she "hasn't slept in days...just wants to sleep." Attempted to provide sleep hygiene with minimal noise, comfortable room temperature and low lighting. Will follow up and notify .
--- NOTE | 2019-11-06 02:00 | NUR ---
Paged Hospitalist RE: sleeping pill patient requesting sleeping pill. awaiting call back. will continue care.
--- NOTE | 2019-11-06 02:25 | NUR ---
Received call back from Hospitalist updated MARIA DE JESUS Mckenna on patient status, request for sleeping pill, and patient continues to c/o of right foot pain and generalized body pain. Received new order for Temazepam 15mg PO x1. Read back and verified. Will carry out order and continue care.
[2019-11-06] MEDS ORDERED: TEMAZEPAM 15 MG CAP PO ONE (02:30)
--- NOTE | 2019-11-06 02:30 | NUR ---
Patient sleeping at this time
--- NOTE | 2019-11-06 04:20 | NUR ---
BM patient used BSC with minimal assistance, had moderate amount of soft bowel movement, was able to cleanse self. Assisted patient back to bed. No s/s of distress. Bed in lowest locked position with side rails up x 3 and call light within reach, bed alarm on.
[2019-11-06] MEDS: hydrALAZINE HCL 25 MG TAB PO SCH ×3 (05:57→22:00)
[2019-11-06] MEDS: InsuLIN REG 1unit/0.01ml Soln (100units/ml) SC SCH ×5 (06:00→23:34)
[2019-11-06] MEDS: GABAPENTIN 100 MG CAP PO SCH ×3 (06:13→22:11)
[2019-11-06] MEDS: traMADol HCL 50 MG TAB PO PRN (06:28)
--- NOTE | 2019-11-06 06:55 | NUR ---
Closing Note patient resting in bed comfortably, even and unlabored respirations, no s/s of distress. patient was able to use BSC with minimal assist. Bed in lowest locked position with side rails up x 2 and call light within reach, bed alarm on.
--- NOTE | 2019-11-06 07:40 | NUR ---
Opening Note Received report from shift production supervisor RN. Patient is awake, alert and oriented x4. No signs or symptoms of distress noted at this time. Patient is on room air, respirations even and unlabored. Patient denies pain at this time. Reviewed plan of care with patient, patient verbalized understanding. Bed in low and locked position, call light within reach. Will continue to monitor Q1 hour and PRN.
[2019-11-06] MEDS: CALCIUM ACETATE 667 MG CAP PO SCH ×3 (08:00→18:43)
[2019-11-06 08:22] LABS: Calcium 7.1 mg/dL (8.5-10.1); Magnesium 2.6 mg/dL (1.6-2.6); Potassium 4.1 mmol/L (3.5-5.1)
[2019-11-06 08:28] LABS: Albumin 2.8 g/dL (3.4-5.0); BUN/Creatinine Ratio 10.6; Bilirubin, Total 0.5 mg/dL (0.2-1.0); Phosphorus 4.4 mg/dL (2.5-4.90); Total Protein 7.4 g/dL (6.4-8.2); Uric Acid 5.9 mg/dL (2.6-6.0)
[2019-11-06 08:29] LABS: Ferritin 1271.6 ng/mL (10-322)
[2019-11-06 08:30] LABS: Folate (Folic Acid) 9.01 ng/mL (5.38-24)
--- NOTE | 2019-11-06 09:10 | NUR ---
Call from Dr. Glover States he will be in to see patient later this afternoon.
--- NOTE | 2019-11-06 09:55 | NUR ---
electromedical equipment technician at bedside
[2019-11-06] MEDS: ATENOLOL 50 MG TAB PO SCH (10:00)
[2019-11-06] MEDS ORDERED: DOCUSATE SOD 100 MG CAP PO SCH (10:00)
[2019-11-06] MEDS: NIFEdipine ER 30 MG TAB PO SCH (10:00)
[2019-11-06 10:03] LABS: Basophils # (auto) 0 10 ^3/uL (0-0.2)
[2019-11-06 10:05] LABS: Basophils % (auto) 0.5 % (0.0-2.0); Eosinophils # (auto) 0.1 10 ^3/uL (0-0.8); Hematocrit 20.3 % (36.0-46.0); Lymphocytes # (auto) 0.7 10 ^3/uL (0.4-5.4); Lymphocytes % (auto) 8.8 % (10.0-50.0); Mean Corpuscular Hemoglobin 33.4 pg (28.0-32.0); Mean Corpuscular Hgb Conc. 34.6 g/dL (32.0-36.0); Mean Corpuscular Volume 96.5 fL (80.0-100.0); Monocytes # (auto) 0.6 10 ^3/uL (0-1.3); Neutrophils % (auto) 80.7 % (37.0-80.0); Platelet Count (auto) 176 10^3/uL (140-450); Red Cell Distribution Width 17.4 % (11.8-14.3); White Blood Cell 7.4 10^3/uL (4.4-10.8)
[2019-11-06 10:29] LABS: INR 1.17 (0.9-1.15); Partial Thromboplastin Time 32.8 sec (23.64-32.05)
[2019-11-06] MEDS: PANTOPRAZOLE 40 MG TAB PO SCH (10:36)
[2019-11-06] MEDS: LORazepam 0.5 MG TAB PO PRN (10:37)
[2019-11-06] MEDS: levETIRAcetam 500 MG TAB PO SCH ×2 (10:37→22:11)
[2019-11-06] MEDS: LORATADINE 10 MG TAB PO SCH (10:37)
[2019-11-06] MEDS: NICOTINE 21MG/24 HR TOPICAL PATCH TD SCH (10:37)
[2019-11-06] MEDS: DULoxetine HCL 30 MG CAP PO SCH (10:38)
--- NOTE | 2019-11-06 11:30 | NUR ---
WOUND CARE NOTE: Wound care in to see patient per wound care request regarding "sacral, right upper buttock skin tears" that are noted present on admission. Bedside nurse took photograph of patient's wounds upon admission for reference. Patient is 54 years old female with admitting diagnosis of Hyperkalemia, ESRD, Uremic Encephalopathy, Renal Osteodystrophy. Patient with history of CAD, CVA,DM, ESRD, High Lipids, Htn, CO, Seizures. Patient is resting in bed in Rm. 279A. Patient is awake,alert and able to verbalize needs. She's able to turn and reposition self. Her Vega score is 16. Assisted patient to stand up. Noted her R inner buttock has two open partial thickness skin tear measuring 0.8x0.8cm and 1.2x0.5cm. Wounds are red with pink/red redd wound, no drainage/odor noted. Assisted patient sit at bedside commode with the help of CHAPIN cA. Instructed bedside nurse to cleansed patient's R inner buttocks and apply wound dressing per MD order after patient have bowel movement. CHAPIN Ac verbalized understanding. Wound dressings at bedside. RECOMMENDATION: Nursing to continue with BID/PRN cleaning and application of Barrier cream to sacral, buttocks, Daily/PRN dressing change to R inner buttock skin tears per MD order, Dietary consult for wounds, redistribute pressure points with pillows,keep clean and dry,continue monitoring by wound care while patient is hospitalized. Addendum: 11/06/19 at 1354 by Ela Avilez RN Amended: Links added.
--- NOTE | 2019-11-06 11:30 | NUR ---
wound care nurse at bedside
--- NOTE | 2019-11-06 15:28 | NUR ---
Dr. Glover at bedside Discussing plan of care with patient and this RN. New orders received to transfuse 1 unit PRBC. Will implement new orders. Will continue to monitor Q1 hour and PRN.
--- NOTE | 2019-11-06 16:19 | NUR ---
Blood transfusion started Transfusing 1 unit PRBC per MD orders. Will continue to monitor Q1 hour and PRN.
--- NOTE | 2019-11-06 19:19 | NUR ---
Closing Note Report given to fast food shift supervisor RN.No signs or symptoms of distress noted at this time.
--- NOTE | 2019-11-06 20:20 | NUR ---
Ended blood transfusion At this time patient's vitals are within baseline. No s/s of distress or SOB. Patient tolerated well. Will continue to monitor Q1 and PRN.
[2019-11-06] MEDS: traZODone HCL 50 MG TAB PO SCH (22:11)
[2019-11-06] MEDS: PARoxetine 20 MG TAB PO SCH (22:11)
[2019-11-06] MEDS: ATORVASTATIN 20 MG TAB PO SCH (22:11)
[2019-11-07] MEDS ORDERED: DEXTROSE (50%) 50ML SYRG IV PRN (02:30)
[2019-11-07 04:50] VITALS: BP 124/63
[2019-11-07] MEDS: hydrALAZINE HCL 25 MG TAB PO SCH ×4 (06:00→22:00)
--- NOTE | 2019-11-07 06:00 | NUR ---
Tele Psych done
[2019-11-07 06:01] LABS: Basophils # (auto) 0 10 ^3/uL (0-0.2); Basophils % (auto) 0.4 % (0.0-2.0); Eosinophils # (auto) 0.2 10 ^3/uL (0-0.8); Eosinophils % (auto) 3.1 % (0.0-7.0); Hematocrit 20.8 % (36.0-46.0); Hemoglobin 7.2 g/dL (12.2-16.2); Lymphocytes # (auto) 0.9 10 ^3/uL (0.4-5.4); Lymphocytes % (auto) 16.4 % (10.0-50.0); Mean Corpuscular Hemoglobin 33.6 pg (28.0-32.0); Mean Corpuscular Hgb Conc. 34.8 g/dL (32.0-36.0); Mean Corpuscular Volume 96.6 fL (80.0-100.0); Monocytes # (auto) 0.6 10 ^3/uL (0-1.3); Monocytes % (auto) 11.4 % (0.0-12.0); Neutrophils # (auto) 3.9 10 ^3/uL (1.6-8.6); Neutrophils % (auto) 68.7 % (37.0-80.0); Nucleated Red Blood Cells % 0.1 %; Platelet Count (auto) 152 10^3/uL (140-450); Red Blood Cells 2.15 10^6/uL (4.0-5.20); Red Cell Distribution Width 16.4 % (11.8-14.3); White Blood Cell 5.6 10^3/uL (4.4-10.8)
[2019-11-07 06:20] LABS: Albumin 2.6 g/dL (3.4-5.0); Potassium 3.9 mmol/L (3.5-5.1)
[2019-11-07 06:25] LABS: BUN/Creatinine Ratio 10.3; Bilirubin, Total 0.5 mg/dL (0.2-1.0); Calcium 6.6 mg/dL (8.5-10.1); Total Protein 6.7 g/dL (6.4-8.2)
--- NOTE | 2019-11-07 06:38 | NUR ---
Critical Lab Dialysis consult done. Patient seen by Dr. Block for ESRD, recommends HD on 11/06. Patient has no s/s of distress or SOB. Will continue to monitor Q1 and PRN.
[2019-11-07] MEDS: ACCU-CHEK COMFORT CURVE STRIP VI SCH ×4 (06:52→22:19)
[2019-11-07] MEDS: InsuLIN REG 1unit/0.01ml Soln (100units/ml) SC SCH ×4 (06:52→22:18)
[2019-11-07] MEDS: GABAPENTIN 100 MG CAP PO SCH ×3 (06:52→21:23)
--- NOTE | 2019-11-07 07:40 | NUR ---
Opening Note Received report from second shift supervisor RN. Patient is sitting up at edge of bed. No signs or symptoms of distress noted at this time. Patient is on room air, respirations even and unlabored. Reviewed plan of care with patient. Patient verbalized understanding. Bed in low and locked position, call light within reach. Will continue to monitor Q1 hour and PRN.
[2019-11-07] MEDS: CALCIUM ACETATE 667 MG CAP PO SCH ×3 (08:00→18:39)
--- NOTE | 2019-11-07 08:00 | NUR ---
Call to telemed Telemed . This RN requested for tele psych report to be faxed. Awaiting fax.
--- NOTE | 2019-11-07 08:50 | NUR ---
Tele psych report placed in patients chart
[2019-11-07 09:00] VITALS: BP 138/56
[2019-11-07] MEDS: LORATADINE 10 MG TAB PO SCH (09:38)
[2019-11-07] MEDS: DULoxetine HCL 30 MG CAP PO SCH (09:38)
[2019-11-07] MEDS: levETIRAcetam 500 MG TAB PO SCH ×2 (09:38→21:22)
[2019-11-07] MEDS: NICOTINE 21MG/24 HR TOPICAL PATCH TD SCH (09:38)
[2019-11-07] MEDS: PANTOPRAZOLE 40 MG TAB PO SCH (09:38)
[2019-11-07] MEDS: ATENOLOL 50 MG TAB PO SCH (09:39)
[2019-11-07] MEDS: NIFEdipine ER 30 MG TAB PO SCH (09:39)
--- NOTE | 2019-11-07 10:44 | NUR ---
interpreter at bedside
--- NOTE | 2019-11-07 10:54 | NUR ---
Unable to complete dialysis at this time Engineering paged to room, RN will return later.
[2019-11-07] MEDS: HYDROcodone-ACET 5/325MG TAB PO PRN (11:18)
--- NOTE | 2019-11-07 11:18 | NUR ---
Pain Patient complains of pain to "lower back and teeth" 02/28 and is requesting [place]. Will medicate per orders. Will continue to monitor Q1 hour and PRN.
--- NOTE | 2019-11-07 12:18 | NUR ---
Pain reassessment Patient sitting up at edge of bed, no signs or symptoms of distress noted at this time. Patient states pain is now 4/10. Will continue to monitor Q1 hour and PRN.
[2019-11-07 13:00] VITALS: BP 147/65
--- NOTE | 2019-11-07 13:10 | NUR ---
Dr. Hill at bedside Discussing plan of care with patient and this RN. Will continue to monitor Q1 hour and PRN.
--- NOTE | 2019-11-07 13:51 | NUR ---
Nutrition Assessment Notes Please refer to link for full assessment notes. Est energy needs: 1502-8407 kcals (23-25 kcal/kgBW) d/t pt ESRD on HD Est protein needs: 97-106 gms/day (1.1-1.2 gm/kgBW) d/t pt ESRD on HD Will continue to monitor and reassess prn. Addendum: 11/07/19 at [address] Amended: Links added. Addendum: 11/07/19 at [address] Please note Additional Recommendations: Consider a Daily MVI with 500mg VitC BID
--- NOTE | 2019-11-07 13:55 | NUR ---
chemical pumper back at bedside
[2019-11-07] MEDS ORDERED: diphenhdrAMINE HCL 50 MG/1 ML VL IM ONE (15:45)
[2019-11-07 16:32] VITALS: BP 177/94
--- NOTE | 2019-11-07 16:40 | NUR ---
Dialysis complete Per irrigating pump operator 2.5L removed. Patient tolerated well. Will continue to monitor Q1 hour and PRN.
[2019-11-07 17:00] VITALS: BP 142/71
--- NOTE | 2019-11-07 17:25 | NUR ---
IV Removed IV removed from right AC with sterile technique, catheter fully intact. Pressure dressing applied to site. Patient tolerated procedure well. Will continue to monitor Q1 hour and PRN.
--- NOTE | 2019-11-07 17:29 | NUR ---
IV Insertion IV access obtained, via clean sterile technique by inserting 22 gauge catheter to the right forearm after one attempt. IV secured properly. No trauma to site. Patient tolerated well. Will continue to monitor Q1 hour and PRN.
--- NOTE | 2019-11-07 19:07 | NUR ---
Closing Note Report given to shift production supervisor RN. No signs or symptoms of distress noted at this time.
--- NOTE | 2019-11-07 19:15 | NUR ---
Opening Shift Note Assumed care of patient, awake and alert. Patient sitting up in bed dangling feet. At this time patient has no S/S of distress/SOB or pain. Instructed on POC and to call for assist PRN, will continue to monitor for changes Q1hr and PRN. Call light and bedside table are within reach. Safety precautions maintained bed rails 2x and bed is in lowest position.
[2019-11-07] MEDS: traZODone HCL 50 MG TAB PO SCH (21:22)
[2019-11-07] MEDS: PARoxetine 20 MG TAB PO SCH (21:22)
[2019-11-07] MEDS: ATORVASTATIN 20 MG TAB PO SCH (21:23)
[2019-11-07 21:49] VITALS: BP 138/60
[2019-11-07] MEDS: LORazepam 0.5 MG TAB PO PRN (22:05)
--- NOTE | 2019-11-07 22:10 | NUR ---
Sitter at bedside Per Dr. Benito order, placed sitter at bedside until cleared from psychiatry
[2019-11-07] MEDS: GABAPENTIN 300 MG CAP PO SCH (22:15)
--- NOTE | 2019-11-08 04:40 | NUR ---
Endorsed care to Renetta RN Gave report. At this time patient has no s/s of distress or SOB. Sitter at bedside.
[2019-11-08] MEDS: GABAPENTIN 300 MG CAP PO SCH ×3 (06:29→22:03)
[2019-11-08] MEDS: InsuLIN REG 1unit/0.01ml Soln (100units/ml) SC SCH ×4 (06:29→22:00)
[2019-11-08] MEDS: hydrALAZINE HCL 25 MG TAB PO SCH ×3 (06:30→22:00)
[2019-11-08] MEDS: ACCU-CHEK COMFORT CURVE STRIP VI SCH ×4 (07:12→22:00)
--- NOTE | 2019-11-08 07:13 | NUR ---
SITTER AT BEDSIDE;PT RESTING WITH EYES CLOSED;NO DISTRESS OBSERVED.
--- NOTE | 2019-11-08 07:30 | NUR ---
Opening Note Received report from maintenance supervisor 2nd shift RN. Patient is awake, alert and oriented x4. No signs or symptoms of distress noted at this time. Patient is on room air, respirations even and unlabored. Reviewed plan of care with patient, patient verbalized understanding. Bed in low and locked position, call light within reach. Will continue to monitor Q1 hour and PRN. Sitter at bedside for safety per MD orders.
--- NOTE | 2019-11-08 08:33 | NUR ---
Tele psych consult placed
[2019-11-08] MEDS: PANTOPRAZOLE 40 MG TAB PO SCH (09:41)
[2019-11-08] MEDS: CALCIUM ACETATE 667 MG CAP PO SCH ×3 (09:41→17:17)
[2019-11-08] MEDS: LORATADINE 10 MG TAB PO SCH (09:41)
[2019-11-08] MEDS: NICOTINE 21MG/24 HR TOPICAL PATCH TD SCH (09:41)
[2019-11-08] MEDS: levETIRAcetam 500 MG TAB PO SCH ×2 (09:41→22:04)
[2019-11-08] MEDS: LORazepam 0.5 MG TAB PO PRN ×2 (09:41→22:15)
[2019-11-08] MEDS: DULoxetine HCL 30 MG CAP PO SCH (09:42)
[2019-11-08] MEDS: ATENOLOL 50 MG TAB PO SCH (10:00)
[2019-11-08] MEDS: NIFEdipine ER 30 MG TAB PO SCH (10:00)
--- NOTE | 2019-11-08 11:34 | NUR ---
Francisca Hill at bedside Discussing plan of care with patient and this RN. No new orders received. Will continue to monitor Q1 hour and PRN.
[2019-11-08] MEDS: traZODone HCL 50 MG TAB PO SCH ×2 (12:45→22:04)
[2019-11-08] MEDS: traMADol HCL 50 MG TAB PO PRN (13:56)
--- NOTE | 2019-11-08 13:56 | NUR ---
Pain Patient complains of pain to right side of face and teeth. Will medicate per orders. Will continue to monitor Q1 hour and PRN.
--- NOTE | 2019-11-08 14:35 | NUR ---
Pain reassessment Patient denies pain at this time. Patient sitting up at edge of bed, no signs or symptoms of distress noted at this time. Will continue to monitor Q1 hour and PRN.
[2019-11-08] MEDS: HYDROcodone-ACET 5/325MG TAB PO PRN (16:39)
--- NOTE | 2019-11-08 16:39 | NUR ---
Pain Patient complains of pain 8/10 to lower back. Will medicate per orders. Will continue to monitor Q1 hour and PRN.
[2019-11-08 17:00] VITALS: BP 148/66
--- NOTE | 2019-11-08 18:39 | NUR ---
Pain reassessment Patient denies pain at this time. No signs or symptoms of distress noted at this time. Will continue to monitor Q1 hour and PRN.
--- NOTE | 2019-11-08 19:15 | NUR ---
Closing Note Report given to night guard RN. No signs or symptoms of distress noted at this time.
--- NOTE | 2019-11-08 19:20 | NUR ---
Opening Shift Note Assumed care of patient, awake and alert. No S/S of distress/SOB or pain. Instructed on POC and to call for assist PRN, will continue to monitor for changes Q1hr and PRN. Call light and bedside table are within reach. Safety precautions maintained bed rails 2x and bed is in lowest position.
[2019-11-08 21:51] VITALS: BP 137/59
[2019-11-08] MEDS: ATORVASTATIN 20 MG TAB PO SCH (22:03)
[2019-11-08] MEDS: PARoxetine 20 MG TAB PO SCH (22:03)
[2019-11-09 05:34] VITALS: BP 139/57
[2019-11-09] MEDS: hydrALAZINE HCL 25 MG TAB PO SCH ×3 (06:00→21:38)
[2019-11-09] MEDS: GABAPENTIN 300 MG CAP PO SCH ×3 (06:12→21:39)
[2019-11-09] MEDS: ACCU-CHEK COMFORT CURVE STRIP VI SCH ×4 (06:13→21:58)
[2019-11-09] MEDS: InsuLIN REG 1unit/0.01ml Soln (100units/ml) SC SCH ×4 (06:13→21:58)
--- NOTE | 2019-11-09 07:20 | NUR ---
OPENING SHIFT NOTE Assumed care of patient from legal operations manager RN. Patient is alert and oriented x4, no signs of distress noted. Patient was updated on the plan of care and verbalized understanding. Bed is locked, in the lowest position, side rails up x2 and call light is in reach. Patient was encouraged to call for assistance as needed.
[2019-11-09] MEDS: LORazepam 0.5 MG TAB PO PRN (08:03)
[2019-11-09] MEDS: CALCIUM ACETATE 667 MG CAP PO SCH ×3 (08:03→18:46)
--- NOTE | 2019-11-09 08:29 | NUR ---
SPOKE TO BENNETT AT NURSES STATION Per MD patient "seems much better" and is ok for DC.
[2019-11-09 09:00] VITALS: BP 130/67
[2019-11-09] MEDS ORDERED: DULoxetine HCL 30 MG CAP PO SCH (10:00)
[2019-11-09] MEDS: NIFEdipine ER 30 MG TAB PO SCH (10:00)
[2019-11-09] MEDS: ATENOLOL 50 MG TAB PO SCH (10:01)
[2019-11-09] MEDS: PANTOPRAZOLE 40 MG TAB PO SCH (10:01)
[2019-11-09] MEDS: LORATADINE 10 MG TAB PO SCH (10:01)
[2019-11-09] MEDS: levETIRAcetam 500 MG TAB PO SCH ×2 (10:02→21:39)
[2019-11-09] MEDS: NICOTINE 21MG/24 HR TOPICAL PATCH TD SCH (10:02)
[2019-11-09] MEDS: HYDROcodone-ACET 5/325MG TAB PO PRN ×2 (10:02→21:40)
--- NOTE | 2019-11-09 11:10 | NUR ---
AT BEDSIDE Updated on patient status. Plan of care discussed with patient and she verbalized understanding. Per MD possible discharge tomorrow.
[2019-11-09 13:00] VITALS: BP 106/51
--- NOTE | 2019-11-09 15:13 | NUR ---
assessment Patient is a 54 year old female who is alert and oriented. Patients cognitive abilities are intact. Prior to admission patient lived home with family and functioned with assistance. Per patient she will return home to her prior living arrangements post discharge and family will transport her home. Patient informed me she has a fww for home use. Patients sister Sandi is her caregiver. Patient is on service with [facility] MWF at 145pm. Patient has no safety concerns regarding returning home on discharge. Patient informed me she fell at home. Patient may benefit from home health PT and safety on discharge. I informed patient she has a right to speak to a nursing home social worker regarding all care. I informed patient she has a right to participate in any and all discharge planning. Patient does not have a POA and advanced directive. I have offered patient information on POA and advanced directives. I informed the patient the advantages and benefits of having an Advanced Directive. Patient verbalized understanding and agreed to discharge plan. Addendum: 11/09/19 at 1516 by Renetta MCCOY Amended: Links added.
--- NOTE | 2019-11-09 16:28 | NUR ---
SHAIKH TC regarding patient HR in 40's. awaiting call back. Patient HR 41, RR 18, HR 98/47. Temp 98.0, O2 99%
[2019-11-09 17:00] VITALS: BP 98/47
[2019-11-09] MEDS: traZODone HCL 50 MG TAB PO SCH (21:39)
[2019-11-09] MEDS: PARoxetine 20 MG TAB PO SCH (21:39)
[2019-11-09] MEDS: ATORVASTATIN 20 MG TAB PO SCH (21:39)
[2019-11-09 21:53] VITALS: BP 107/57
--- NOTE | 2019-11-09 23:00 | NUR ---
Received call from monitor techs stating the patient has been going between sinus beatriz and junctional rhythm. 12 lead EKG performed. Patient is asymptomatic with no signs/symptoms of distress. Will make hospitalist aware.
--- NOTE | 2019-11-10 00:40 | NUR ---
Hospitalist paged Spoke with hospitalist, EKG signed. No new orders. Will continue to monitor.
[2019-11-10 05:00] VITALS: BP 91/48
--- NOTE | 2019-11-10 05:50 | NUR ---
Dressing Changed Old dressing removed. Wound cleansed and patted dry. Applied therahoney and covered with optifoam dressing. Pt tolerated well.
[2019-11-10] MEDS: GABAPENTIN 300 MG CAP PO SCH ×2 (05:58→14:00)
[2019-11-10] MEDS: InsuLIN REG 1unit/0.01ml Soln (100units/ml) SC SCH ×3 (05:58→17:35)
[2019-11-10] MEDS: hydrALAZINE HCL 25 MG TAB PO SCH (05:59)
[2019-11-10] MEDS: ACCU-CHEK COMFORT CURVE STRIP VI SCH ×3 (05:59→17:43)
[2019-11-10 06:18] LABS: Hemoglobin 7.5 g/dL (12.2-16.2)
[2019-11-10 06:29] LABS: Hematocrit 21.7 % (36.0-46.0)
[2019-11-10 06:37] LABS: Potassium 4.5 mmol/L (3.5-5.1)
[2019-11-10 06:51] LABS: BUN/Creatinine Ratio 9.4; Calcium 6.5 mg/dL (8.5-10.1)
--- NOTE | 2019-11-10 07:04 | NUR ---
Critical Lab [id number] Received call from lab regarding critical lab value. Hospitalist made aware. No new orders given at this time.
--- NOTE | 2019-11-10 07:15 | NUR ---
Opening Shift Note Report received and assumed care of patient, awake and alert. No S/S of distress/SOB or pain. Instructed on POC and to call for assist PRN. will continue to monitor for changes Q1hr and PRN.
[2019-11-10 08:59] VITALS: BP 106/45
[2019-11-10] MEDS: CALCIUM ACETATE 667 MG CAP PO SCH ×2 (09:12→12:00)
[2019-11-10] MEDS: levETIRAcetam 500 MG TAB PO SCH (10:00)
[2019-11-10] MEDS ORDERED: DULoxetine HCL 30 MG CAP PO SCH (10:00)
[2019-11-10] MEDS: PANTOPRAZOLE 40 MG TAB PO SCH (10:00)
[2019-11-10] MEDS: LORATADINE 10 MG TAB PO SCH (10:00)
[2019-11-10] MEDS: NICOTINE 21MG/24 HR TOPICAL PATCH TD SCH (10:00)
--- NOTE | 2019-11-10 10:00 | NUR ---
10:00 MEDICATION HELD AT THIS TIME,PATIENT SCHEDULE FOR HEMODIALYSIS
--- NOTE | 2019-11-10 10:59 | NUR ---
Histology Manager consult regarding Home Health. Pt has [facility] and referral was sent to [facility] . Barby from [facility] accepted the pt. Andria from [facility] gave authorization for Home Health. Authorization number [id number]. Home Health to see pt within 48 hours from discharge.
--- NOTE | 2019-11-10 11:00 | NUR ---
MD VISIT DR. ONTIVEROS HERE TO SEE AND EXAMINED PATIENT,INFORMED PATIENT RHYTHM SINUS JUNCTIONAL/BRADYCARDIA SINCE YESTERDAY AFTER PATIENT HAD TENORMIN,RECEIVED ORDER FOR CARDIOLOGY CONSULT AND DISCONTINUE TENORMIN. SEE ORDERS WRITTEN.
[2019-11-10] MEDS ORDERED: DULO60CA PO (12:04)
[2019-11-10] MEDS ORDERED: NIFE1TAB36 PO (12:04)
[2019-11-10] MEDS ORDERED: ATOR20TA PO (12:04)
[2019-11-10] MEDS ORDERED: TRAZ100T3 PO (12:04)
--- NOTE | 2019-11-10 12:55 | NUR ---
MD VISIT DR. MCQUEEN HERE TO SEE AND EXAMINED PATIENT,STATED PATIENT WILL BE DIALYZE TODAY
[2019-11-10 13:22] VITALS: BP 100/68
--- NOTE | 2019-11-10 13:57 | NUR ---
Pt was requesting a Walker. Andria, Medical Office Receptionist Assistant from [facility] stated that pt had been given a walker 2 yrs ago. They will not give pt another walker.
[2019-11-10] MEDS: HYDROcodone-ACET 5/325MG TAB PO PRN (14:24)
--- NOTE | 2019-11-10 14:24 | NUR ---
C/O GENERALIZED PAIN AND BACK PAIN SCALE 10/10,PATIENT MEDICATED WITH NORCO 5/325 MG PO, SEE eMAR
--- NOTE | 2019-11-10 15:18 | NUR ---
Request from Dr. Hadley to set up transport for pt to return home after dialysis at 6:00pm. Faxed IE Form. Awaiting response.
--- NOTE | 2019-11-10 15:25 | NUR ---
LITIGATION COUNSEL AT BEDSIDE,HEMODIALYSIS TREATMENT STARTED
--- NOTE | 2019-11-10 15:30 | NUR ---
MORA ROSA CARDIOLOGY INTEGRATION SOFTWARE DEVELOPER HERE TO SEE AND EXAMINED PATIENT,12 LEAD EKG DONE,REPORT GIVEN TO MORA TO REVIEW
[2019-11-10] MEDS ORDERED: SODIUM CHL 0.9% 1000 ML BAG XX ONE (15:45)
--- NOTE | 2019-11-10 16:04 | NUR ---
PER MORA SenaCARDIOLOGY NURSE PRACTITIONER, CARDIAC CLEAR FOR DISCHARGE
--- NOTE | 2019-11-10 16:30 | NUR ---
INFORMED DR. ONTIVEROS UNABLE TO GET BACK BRACE, SUNIL FROM ORTHO ROOM IS NOT AVAILABLE, INFORMED M.D. LEFT MESSAGE TO HIM REGARDING PATIENT NEEDING BACK BRACE.
[2019-11-10 16:33] VITALS: BP 110/43
--- NOTE | 2019-11-10 16:50 | NUR ---
CALLED ORTHOPEDIC ROOM SPOKE TO MARIBEL,INFORMED OF PATIENT NEEDING BACK BRACE FOR DISCHARGE ,STATED THEY DO NOT CARRY BACK BRACE AND SUNIL IS NOT AVAILABLE ALSO ON TUESDAYS.
--- NOTE | 2019-11-10 16:55 | NUR ---
CALLED [facility]ERIAL [facility]NAGEMENT,SPOKE TO FRANCISCO JAVIER MCBRIDE NEEDING BACK BRACE FOR PATIENT WHO IS BEING DISCHARGE,STATED [facility] DOES NOT CARRY BACK BRACE.
--- NOTE | 2019-11-10 17:10 | NUR ---
HEMODIALYSIS TREATMENT ENDED,REMOVED 1.6 LITERS OUT PER HD RN REPORT,BP 149/77,HR 64
[2019-11-10 17:44] VITALS: BP 149/77
--- NOTE | 2019-11-10 18:00 | NUR ---
DISCHARGE PHOTO TO RIGHT BUTTOCK TAKEN.
--- NOTE | 2019-11-10 18:30 | NUR ---
Discharge instructions given as ordered. Encourage to follow up with PMD as instructed. All questions and concerns addressed. Patient verbalized understanding. Medication reconciliation form completed and copy given to patient.IV removed with catheter intact, pressure dressing applied, Telemetry unit returned to ICU. Patient taken to vehicle via wheelchair with all personal belongings,awaiting for arranged transportation for pear picker.
--- NOTE | 2019-11-10 19:12 | NUR ---
Per patient has back brace already that was given to her few weeks ago. Patient taken to vehicle via wheelchair with all personal belongings, accompanied by staff. No distress noted at time of departure.
[2019-11-10] MEDS ORDERED: EPOETIN ALFA 10,000 UNIT/1 ML VIAL SC ONE (21:00)
[2019-11-10] MEDS ORDERED: hydrALAZINE HCL 25 MG TAB PO SCH (22:00)
[2019-11-11] MEDS ORDERED: NIFEdipine ER 30 MG TAB PO SCH (10:00)
== END 2019-11-10 18:10 | disposition home health service (06) | DRG 640 ==
LOC: EDBD 12:50 → ER 12:50 → TELE 12:51 → TELE-WESTW 20:19
PROVIDERS: ADMIT Hospitalist; ATTEND Internal Medicine
PROC: 30233N1 Transfusion of Nonautologous Red Blood Cells into Peripheral Vein, Percutaneous Approach (ICD-10-PCS; principal; 2019-11-05)
PROC: 5A1D70Z Performance of Urinary Filtration, Intermittent, Less than 6 Hours Per Day (ICD-10-PCS; 2019-11-05)
PROC: 5A1D70Z Performance of Urinary Filtration, Intermittent, Less than 6 Hours Per Day (ICD-10-PCS; 2019-11-07)
PROC: 5A1D70Z Performance of Urinary Filtration, Intermittent, Less than 6 Hours Per Day (ICD-10-PCS; 2019-11-10)
DX: E87.5 Hyperkalemia (principal); G93.41 Metabolic encephalopathy; N18.6 End stage renal disease; I12.0 Hypertensive chronic kidney disease with stage 5 chronic kidney disease or end stage renal disease; E44.0 Moderate protein-calorie malnutrition; N17.9 Acute kidney failure, unspecified; M48.56XA Collapsed vertebra, not elsewhere classified, lumbar region, initial encounter for fracture; E87.1 Hypo-osmolality and hyponatremia; E87.2 Acidosis; R55 Syncope and collapse; E66.01 Morbid (severe) obesity due to excess calories; M81.0 Age-related osteoporosis without current pathological fracture; N25.0 Renal osteodystrophy; E11.22 Type 2 diabetes mellitus with diabetic chronic kidney disease; F17.200 Nicotine dependence, unspecified, uncomplicated; R29.6 Repeated falls; E87.6 Hypokalemia; F32.9 Major depressive disorder, single episode, unspecified; F41.9 Anxiety disorder, unspecified; I25.10 Atherosclerotic heart disease of native coronary artery without angina pectoris; G89.29 Other chronic pain; D63.8 Anemia in other chronic diseases classified elsewhere; R00.1 Bradycardia, unspecified; Z79.01 Long term (current) use of anticoagulants; Z87.442 Personal history of urinary calculi; Z86.14 Personal history of Methicillin resistant Staphylococcus aureus infection; Z79.4 Long term (current) use of insulin; Z79.82 Long term (current) use of aspirin; Z86.73 Personal history of transient ischemic attack (TIA), and cerebral infarction without residual deficits; Z99.2 Dependence on renal dialysis; Z68.32 Body mass index [BMI] 32.0-32.9, adult; Z82.49 Family history of ischemic heart disease and other diseases of the circulatory system; Z82.5 Family history of asthma and other chronic lower respiratory diseases; Z88.9 Allergy status to unspecified drugs, medicaments and biological substances; Z95.1 Presence of aortocoronary bypass graft; Z90.710 Acquired absence of both cervix and uterus; Z83.3 Family history of diabetes mellitus
CPT/HCPCS: 36415; 36430; 70450; 71045; 72125; 72131; 73130; 73630; 80048; 80053; 80061; 82550; 82607; 82728; 82746; 82962; 83036; 83540; 83550; 83735; 83880; 83930; 83970; 84100; 84132; 84443; 84484; 84550; 85014; 85018; 85025; 85045; 85610; 85652; 85730; 86592; 86850; 86900; 86901; 86920; 87081; 90935; 93005; 93306; 96365; 96375; 97163; 99291; G0378; J0610; J0885; J1815; J2405; J7060

== ENCOUNTER 2019-11-20 19:47 | Emergency (ER) | payer OTHER, MEDICAID ==
[~2019-11-20] VITALS: Ht 170.2 cm; Wt 104.3 kg
[~2019-11-20 19:47] MED LIST changes: +APIX2.5T PO; -ASPI-407 PO; -ATE50T PO; +ATOR20TA PO; -CHOL20009 PO; -ERGO1CAP6 PO; +FERR1TAB17 PO; -GAB100C PO; -LANT1000 PO; -MULT-397 OR; -SIMV-13 PO
[2019-11-20 22:30] VITALS: BP 138/40
== END 2019-11-20 23:42 | disposition home or self-care (01) ==
LOC: EDBD 19:47 → ER 19:49
DX: T85.09XA Other mechanical complication of ventricular intracranial (communicating) shunt, initial encounter (principal); E11.22 Type 2 diabetes mellitus with diabetic chronic kidney disease; I12.0 Hypertensive chronic kidney disease with stage 5 chronic kidney disease or end stage renal disease; N18.6 End stage renal disease; E78.5 Hyperlipidemia, unspecified; I25.2 Old myocardial infarction; Z99.2 Dependence on renal dialysis; Z86.73 Personal history of transient ischemic attack (TIA), and cerebral infarction without residual deficits; Z90.710 Acquired absence of both cervix and uterus; Z95.1 Presence of aortocoronary bypass graft

== ENCOUNTER 2019-12-08 16:14 | Inpatient (IN) | payer OTHER, MEDICAID ==
[~2019-12-08] VITALS: Ht 172.7 cm; Wt 83.5 kg
[~2019-12-08 16:14] MED LIST changes: -LEVE500T22 PO; +LEVE500T32 PO; -LORA1TAB12 PO; +LORA1TAB23 PO
[2019-12-08 17:51] LABS: Basophils # (auto) 0 10 ^3/uL (0-0.2); Eosinophils # (auto) 0 10 ^3/uL (0-0.8); Lymphocytes # (auto) 1.1 10 ^3/uL (0.4-5.4); Monocytes # (auto) 0.6 10 ^3/uL (0-1.3); White Blood Cell 5.8 10^3/uL (4.4-10.8)
[2019-12-08 17:53] LABS: Basophils % (auto) 0.4 % (0.0-2.0); Eosinophils % (auto) 0.8 % (0.0-7.0); Hematocrit 14.7 % (36.0-46.0); Lymphocytes % (auto) 19.3 % (10.0-50.0); Mean Corpuscular Hemoglobin 34.1 pg (28.0-32.0); Mean Corpuscular Hgb Conc. 34.1 g/dL (32.0-36.0); Mean Corpuscular Volume 99.8 fL (80.0-100.0); Monocytes % (auto) 10.5 % (0.0-12.0); Nucleated Red Blood Cells % 0.1 %; Platelet Count (auto) 175 10^3/uL (140-450); Red Blood Cells 1.48 10^6/uL (4.0-5.20)
[2019-12-08 18:07] LABS: Albumin 2.8 g/dL (3.4-5.0); BUN/Creatinine Ratio 6.2; Calcium 7.4 mg/dL (8.5-10.1); INR 1.14 (0.9-1.15); Magnesium 2.2 mg/dL (1.6-2.6); Partial Thromboplastin Time 30.8 sec (23.64-32.05); Potassium 3.7 mmol/L (3.5-5.1)
[2019-12-08 18:10] LABS: Bilirubin, Total 0.4 mg/dL (0.2-1.0); Total Protein 6.7 g/dL (6.4-8.2)
[2019-12-08] MEDS ORDERED: NITROGLYCERIN 0.4 MG SL TAB SL PRN (18:30)
[2019-12-08] MEDS ORDERED: MORPHINE SULF INJ 2 MG/ML SYRINGE 1ML IV PRN (18:30)
[2019-12-08] MEDS ORDERED: FUROSEMIDE 40 MG/4 ML VIAL IV ONE (19:45)
[2019-12-08] MEDS ORDERED: DEXTROSE (50%) 50ML SYRG IV PRN (19:45)
--- NOTE | 2019-12-08 20:40 | NUR ---
Telemetry admit from ER JAQUELINE HANSEN admitted to Telemetry unit. Patient oriented to Laura Davis, primary RN, unit, room, bed, and unit policies regarding patient care and visiting hours. Patient now on continuous telemetry monitoring, tele box #65 and telemetry reading on arrival to unit is NSR. Patient weighed by bed scale and encouraged to call if they need something. All questions and concerns addressed, patient verbalized understanding.
[2019-12-08 21:49] VITALS: BP 138/58
--- NOTE | 2019-12-08 21:57 | NUR ---
1ST UNIT OF PRBC BEGAN. VERIFIED AT BEDSIDE WITH SECONDARY RN SUNIL. IV SITE PATENT AND ASYMPTOMATIC. SEE SPREADSHEET.
--- NOTE | 2019-12-08 21:59 | NUR ---
HOSPITALIST PAGED PATIENT REQUESTING TRAMADOL FOR PAIN.
[2019-12-08] MEDS: traZODone HCL 50 MG TAB PO SCH (22:09)
[2019-12-08] MEDS: GABAPENTIN 100 MG CAP PO SCH (22:09)
[2019-12-08] MEDS: PARoxetine 20 MG TAB PO SCH (22:10)
[2019-12-08] MEDS: levETIRAcetam 500 MG TAB PO SCH (22:10)
[2019-12-08] MEDS: hydrOXYchloroQUINE SULFATE 200 MG TAB PO SCH (22:10)
[2019-12-08] MEDS: hydrALAZINE HCL 25 MG TAB PO SCH (22:11)
[2019-12-08 22:13] VITALS: BP 157/68
--- NOTE | 2019-12-08 22:20 | NUR ---
HOSPITALIST RETURNS CALL HOSPITALIST JOSE RETURNS CALL. UPDATED ON PATIENT REPORTING PAIN LEVEL RATED 10/10 TO RIGHT FLANK AND LOWER EXTREMITIES. PATIENT IS REQUESTING CONTINUATION OF HOME MEDICATION TRAMADOL 50MG TID TAKEN AT HOME. NEW ORDERS RECEIVED FOR TRAMADOL 50MG PO Q12HR PRN FOR PAIN. ORDER READ BACK AND VERIFIED.
[2019-12-08] MEDS: ACCU-CHEK COMFORT CURVE STRIP VI SCH (22:29)
[2019-12-08] MEDS: traMADol HCL 50 MG TAB PO PRN (22:53)
[2019-12-08 23:56] VITALS: BP 157/72
[2019-12-09] VITALS (8 sets, daily range): BP systolic 122–171; BP diastolic 60–86
--- NOTE | 2019-12-09 00:24 | NUR ---
1ST UNIT OF PRBC COMPLETE. NO S/S OF TRANSFUSION REACTION NOTED. PATIENT DENIES SYMPTOMS.
[2019-12-09] MEDS: INSULIN LANTUS (GLARGINE) 1 /0.01ml (100units/ml) SC SCH (00:37)
[2019-12-09] MEDS: InsuLIN REG 1unit/0.01ml Soln (100units/ml) SC SCH ×4 (00:37→17:00)
--- NOTE | 2019-12-09 00:53 | NUR ---
2ND UNIT OF PRBC GIVEN ORDERED. VERIFIED AT BEDSIDE WITH SECONDARY RN CASSIA. IV SITE REMAINS PATENT AND ASYMPTOMATIC. SEE SPREADSHEET.
--- NOTE | 2019-12-09 03:16 | NUR ---
2ND UNIT OF PRBC COMPLETE. NO S/S OF TRANSFUSION REACTION NOTED. PATIENT DENIES SYMPTOMS.
[2019-12-09] MEDS: hydrALAZINE HCL 25 MG TAB PO SCH ×3 (05:24→21:59)
[2019-12-09] MEDS: GABAPENTIN 100 MG CAP PO SCH ×2 (05:24→18:00)
[2019-12-09] MEDS: FUROSEMIDE 40 MG/4 ML VIAL IV SCH ×2 (05:25→18:00)
--- NOTE | 2019-12-09 05:36 | NUR ---
LOW BLOOD SUGAR PATIENTS BLOOD SUGAR IS CURRENTLY 69, PATIENT REPORTS FEELING WEAK. ENCOURAGED PATIENT TO EAT SNACK, PATIENT REFUSED STATING SHE IS NOT HUNGRY AND CAN NOT EAT. PATIENT AGREES TO DRINK APPLE JUICE AND CRANBERRY JUICE. PROVIDED PATIENT JUICES REQUESTED.
[2019-12-09] MEDS: ACCU-CHEK COMFORT CURVE STRIP VI SCH ×4 (05:37→22:05)
[2019-12-09 06:31] LABS: Basophils # (auto) 0 10 ^3/uL (0-0.2); Basophils % (auto) 0.5 % (0.0-2.0); Eosinophils # (auto) 0.1 10 ^3/uL (0-0.8); Hemoglobin 8.2 g/dL (12.2-16.2); Lymphocytes # (auto) 1.1 10 ^3/uL (0.4-5.4); Monocytes # (auto) 0.5 10 ^3/uL (0-1.3)
[2019-12-09 06:34] LABS: Eosinophils % (auto) 0.9 % (0.0-7.0); Hematocrit 23.6 % (36.0-46.0); Lymphocytes % (auto) 18.3 % (10.0-50.0); Mean Corpuscular Hemoglobin 34.4 pg (28.0-32.0); Mean Corpuscular Hgb Conc. 34.6 g/dL (32.0-36.0); Mean Corpuscular Volume 99.4 fL (80.0-100.0); Monocytes % (auto) 9.2 % (0.0-12.0); Neutrophils # (auto) 4.1 10 ^3/uL (1.6-8.6); Neutrophils % (auto) 71.1 % (37.0-80.0); Nucleated Red Blood Cells % 0.1 %; Platelet Count (auto) 177 10^3/uL (140-450); Red Blood Cells 2.37 10^6/uL (4.0-5.20); Red Cell Distribution Width 15.5 % (11.8-14.3); White Blood Cell 5.8 10^3/uL (4.4-10.8)
[2019-12-09 06:37] LABS: Potassium 3.5 mmol/L (3.5-5.1)
[2019-12-09 06:45] LABS: Albumin 3.2 g/dL (3.4-5.0); BUN/Creatinine Ratio 6.5; Bilirubin, Total 0.7 mg/dL (0.2-1.0); Calcium 7.5 mg/dL (8.5-10.1); Magnesium 2.4 mg/dL (1.6-2.6); Phosphorus 2.8 mg/dL (2.5-4.90)
[2019-12-09] MEDS ORDERED: SODIUM CHL 0.9% 1000 ML BAG XX ONE (07:00)
[2019-12-09] MEDS ORDERED: INSULIN LISPRO (HUMAN) 100 UNITS/ML ML SC SCH (07:00)
--- NOTE | 2019-12-09 08:05 | NUR ---
OPENING SHIFT NOTE: PATIENT RESTING IN BED CRYING. PATIENT SAYS SHE, "IS HAVING A HARD TIME TODAY AND FEELS LIKE I AM HAVING A PANIC ATTACK." PATIENT SOOTHED BY THIS RN, AND ADJUSTED ROOM TEMP FOR PATIENT COMFORT AND COMPLAINT OF BEING COLD. CALL LIGHT PLACED WITHIN REACH, UPDATED ON PLAN OF CARE, WILL CONTINUE TO MONITOR.
[2019-12-09] MEDS: DULoxetine HCL 30 MG CAP PO SCH (08:23)
[2019-12-09] MEDS: LORATADINE 10 MG TAB PO SCH (08:23)
[2019-12-09] MEDS: FERROUS SULFATE 325 MG TAB PO SCH ×3 (08:23→18:00)
[2019-12-09] MEDS: NICOTINE 21MG/24 HR TOPICAL PATCH TD SCH (08:24)
[2019-12-09] MEDS: hydrOXYchloroQUINE SULFATE 200 MG TAB PO SCH ×2 (08:24→22:00)
[2019-12-09] MEDS: levETIRAcetam 500 MG TAB PO SCH ×2 (08:24→22:00)
[2019-12-09] MEDS ORDERED: PANTOPRAZOLE 40 MG TAB PO SCH (10:00)
--- NOTE | 2019-12-09 10:05 | NUR ---
ASSISTED PATIENT TO BEDSIDE CHAIR.
--- NOTE | 2019-12-09 11:00 | NUR ---
WOUND CARE NOTE: PATIENT RECENTLY ADMITTED TO [facility] WITH DIAGNOSIS OF SEVERE SYMPTOMATIC ANEMIA, ESRD. CURRENT RADHA SCORE 17. PATIENT IS ABLE TO SELF TURN/REPOSITION SELF. SHE HAS MULTIPLE HEALING PRESSURE ULCERS, WITH INTACT PINK COLLAGEN SCARS NOTED. SHE WOULD BENEFIT FROM SKIN/WOUND CARE PLAN, BID/PRN APPLICATION WITH MOISTURE BARRIER CREAM, OPTIFOAM GENTLE SACRAL DRESSING, CONTINUED MONITORING BY WOUND CARE TEAM. Addendum: 12/09/19 at 1803 by Elisabeth Sullivan RN Amended: Links added.
[2019-12-09] MEDS ORDERED: POLYETHYLENE GLYCOL 17 GM PWDR PO ONE (11:45)
[2019-12-09] MEDS: traMADol HCL 50 MG TAB PO PRN (12:33)
--- NOTE | 2019-12-09 12:35 | NUR ---
VOICEMAIL LEFT ON DR. FONTENOT'S ANSWERING SERVICE, ON BEHALF OF DR. HANNAH REQUEST TO ALSO PERFORM A COLONOSCOPY SUNDAY 12/10 IN ADDITION TO PLANNED EGD.
--- NOTE | 2019-12-09 13:00 | NUR ---
TELE PSYCH CONSULT PLACED AND MONITOR AT BEDSIDE.
--- NOTE | 2019-12-09 13:05 | NUR ---
MD FONTENOT ROUNDING ON PATIENT. ORDERS RECEIVED.
--- NOTE | 2019-12-09 15:03 | NUR ---
Nutrition Assessment/consult Notes please see attached link for complete assessment Est energy needs BW 86 [id number] kcal (23-25 kcal/kg BW) Est protein needs 103-111 g (1.2-1.3g/kg BW on dialysis). Will reassess prn. Addendum: 12/09/19 at [address] Amended: Links added.
--- NOTE | 2019-12-09 15:30 | NUR ---
STOOL SENT TO LAB
[2019-12-09] MEDS: SUCRALFATE 1 GM/10 ML ORAL SUSP PO SCH ×2 (17:00→21:59)
--- NOTE | 2019-12-09 17:10 | NUR ---
TIRE SERVICE TECHNICIAN AT BEDSIDE.
--- NOTE | 2019-12-09 17:11 | NUR ---
TELE MACHINE RETURNED TO CHARGE OFFICE AFTER COMPLETION.
[2019-12-09] MEDS ORDERED: LEVE100020 PO (17:13)
[2019-12-09] MEDS ORDERED: FURO1TAB32 PO (17:13)
[2019-12-09] MEDS ORDERED: FERR1TAB17 PO (17:13)
[2019-12-09] MEDS ORDERED: TRAZ-181 PO (17:13)
[2019-12-09] MEDS ORDERED: LORA0.5T20 PO (17:13)
[2019-12-09] MEDS ORDERED: CALC667T2 PO (17:13)
--- NOTE | 2019-12-09 18:52 | NUR ---
HOSPITALIST PAGED REGARDING BP. PATIENT IN DIALYSIS AND SYSTOLIC 190'S 200'S. PENDING CALL BACK.
--- NOTE | 2019-12-09 19:25 | NUR ---
CARE ENDORSED TO HANH SAMSON, MADE AWARE OF HOMICIDE INVESTIGATOR AND LAST KNOWN BP.
--- NOTE | 2019-12-09 19:35 | NUR ---
DIALYSIS COMPLETE SPOKE TO DIALYSIS NURSE AT BEDSIDE.HE REPORTED A TOTAL OF 3LOFF AND ELEVATED BLOOD PRESSURE POST DIALYSIS. SUGGESTED PRN BP MEDS FOR PATIENT. INSTRUCTED ME TO REMOVE DRESSING ON FISTULA SITE AROUND MIDNIGHT.
--- NOTE | 2019-12-09 20:05 | NUR ---
HOSPITALIST PAGED PATIENT'S BLOOD PRESSURE POST DIALYSIS: 202/73, HR 65. PATIENT ALSO REPORTING NAUSEA. NO PRN NAUSEA OR BP MEDS ORDERED AT THIS TIME.
[2019-12-09] MEDS ORDERED: cloNIDine HCL 0.1 MG TAB PO ONE (20:45)
[2019-12-09] MEDS ORDERED: EPOETIN ALFA 10,000 UNIT/1 ML VIAL SC ONE (21:00)
--- NOTE | 2019-12-09 21:36 | NUR ---
HOSPITALIST AT NURSING STATION, INFORMED MARIA DE JESUS LARA OF ELEVATED BLOOD PRESSURE POST DIALYSIS, BP 202/73. NEW ORDERS RECEIVED FOR CLONIDINE 0.1MG PO X1 DOSE. ORDERS READ BACK AND VERIFIED
[2019-12-09] MEDS: PARoxetine 20 MG TAB PO SCH (22:00)
[2019-12-09] MEDS: ATORVASTATIN 20 MG TAB PO SCH (22:00)
[2019-12-09] MEDS: traZODone HCL 50 MG TAB PO SCH (22:00)
[2019-12-09] MEDS: PANTOPRAZOLE 40 MG TAB PO SCH (22:01)
[2019-12-10] MEDS: traMADol HCL 50 MG TAB PO PRN ×3 (00:52→21:11)
--- NOTE | 2019-12-10 00:52 | NUR ---
TRAMADOL GIVEN ORDERED FOR PAIN RATED 8/10 IN ABDOMEN. REMOVED DRESSING FROM DIALYSIS FISTULA ON LEFT ARM. NO S/S OF BLEEDING NOTED AT SITE.
[2019-12-10] MEDS: InsuLIN REG 1unit/0.01ml Soln (100units/ml) SC SCH ×5 (04:30→21:13)
[2019-12-10] MEDS: INSULIN LANTUS (GLARGINE) 1 /0.01ml (100units/ml) SC SCH ×2 (04:30→22:00)
[2019-12-10 04:48] VITALS: BP 139/72
[2019-12-10] MEDS: SUCRALFATE 1 GM/10 ML ORAL SUSP PO SCH ×4 (05:56→22:00)
[2019-12-10] MEDS: FUROSEMIDE 40 MG/4 ML VIAL IV SCH ×2 (05:56→18:00)
[2019-12-10] MEDS: hydrALAZINE HCL 25 MG TAB PO SCH ×3 (05:56→22:26)
[2019-12-10] MEDS: ACCU-CHEK COMFORT CURVE STRIP VI SCH ×4 (06:00→21:12)
[2019-12-10 07:07] LABS: Basophils # (auto) 0 10 ^3/uL (0-0.2); Basophils % (auto) 0.6 % (0.0-2.0); Eosinophils # (auto) 0 10 ^3/uL (0-0.8); Eosinophils % (auto) 0.7 % (0.0-7.0); Hematocrit 25.3 % (36.0-46.0); Hemoglobin 8.6 g/dL (12.2-16.2); Lymphocytes # (auto) 0.8 10 ^3/uL (0.4-5.4); Lymphocytes % (auto) 13.8 % (10.0-50.0); Mean Corpuscular Hemoglobin 33.5 pg (28.0-32.0); Mean Corpuscular Hgb Conc. 34.1 g/dL (32.0-36.0); Mean Corpuscular Volume 98.3 fL (80.0-100.0); Monocytes # (auto) 0.6 10 ^3/uL (0-1.3); Monocytes % (auto) 9.8 % (0.0-12.0); Neutrophils # (auto) 4.5 10 ^3/uL (1.6-8.6); Neutrophils % (auto) 75.1 % (37.0-80.0); Platelet Count (auto) 181 10^3/uL (140-450); Red Blood Cells 2.58 10^6/uL (4.0-5.20); Red Cell Distribution Width 15.7 % (11.8-14.3)
[2019-12-10 07:21] LABS: Calcium 7.5 mg/dL (8.5-10.1); Potassium 3.4 mmol/L (3.5-5.1)
[2019-12-10 07:24] LABS: BUN/Creatinine Ratio 5.8
--- NOTE | 2019-12-10 07:40 | NUR ---
OPENING SHIFT NOTE: PATIENT ASLEEP IN BED. RESPIRATIONS EVEN AND UNLABORED. TELE MONITOR IN PLACE HR READING 65BPM AT NURSES STATION. CALL LIGHT WITHIN REACH, FALL PRECAUTIONS IN PLACE. CARE BOARD UPDATED, WILL CONTINUE TO MONITOR.
--- NOTE | 2019-12-10 08:00 | NUR ---
TELE PSYCH REPORT RECEIVED AND PLACED IN THE HARD CHART.
[2019-12-10 09:00] VITALS: BP 128/53
--- NOTE | 2019-12-10 09:03 | NUR ---
CONSENTS SIGNED AND PLACED IN THE HARD CHART.
[2019-12-10] MEDS: LORATADINE 10 MG TAB PO SCH (09:04)
[2019-12-10] MEDS: FERROUS SULFATE 325 MG TAB PO SCH ×3 (09:04→18:00)
[2019-12-10] MEDS: NICOTINE 21MG/24 HR TOPICAL PATCH TD SCH (09:05)
[2019-12-10] MEDS: PANTOPRAZOLE 40 MG TAB PO SCH ×2 (09:05→22:26)
[2019-12-10] MEDS: hydrOXYchloroQUINE SULFATE 200 MG TAB PO SCH ×2 (09:05→22:27)
[2019-12-10] MEDS: levETIRAcetam 500 MG TAB PO SCH ×2 (09:05→22:27)
[2019-12-10] MEDS: DULoxetine HCL 30 MG CAP PO SCH (09:06)
[2019-12-10] MEDS ORDERED: GOLYTELY 4L KIT PO ONE (11:00)
--- NOTE | 2019-12-10 11:45 | NUR ---
PATIENT REFUSED 1200 IRON AND 1000 CLARITIN.
--- NOTE | 2019-12-10 12:14 | NUR ---
GOLYTELY BOWEL PREP STARTED.
[2019-12-10] MEDS ORDERED: QUEtiapine FUMARATE 25 MG TAB PO PRN (12:15)
[2019-12-10 13:00] VITALS: BP 128/53
--- NOTE | 2019-12-10 15:00 | NUR ---
PATIENT DENIES HAVING TO HAVE A BM AT THIS TIME. 1/3 OF GOLYTELY COMPLETED, CONTINUED EDUCATION AND ENCOURAGEMENT GIVEN. COMMODE AT BEDSIDE.
--- NOTE | 2019-12-10 15:28 | NUR ---
PATIENT'S BACK BRACE BROUGHT TO BEDSIDE. THIS RN ASSISTED PATIENT TO PUT ON.
[2019-12-10 16:38] VITALS: BP 138/76
[2019-12-10] MEDS: GABAPENTIN 100 MG CAP PO SCH (18:00)
--- NOTE | 2019-12-10 18:08 | NUR ---
PM MEDS: PATIENT REFUSING PM MEDS AT THIS TIME. FERROUS SULFATE, FUROSEMIDE, AND NEURONTIN. PATIENT ON COMMODE HAVING A BM REPORTING,"EVERY 10 MINUTES." EDUCATION GIVEN. WILL CONTINUE TO MONITOR.
--- NOTE | 2019-12-10 18:56 | NUR ---
CARE ENDORSED TO IRENE SAMSON.
--- NOTE | 2019-12-10 19:30 | NUR ---
Opening Note Patient awake sitting in bed AOX4. Patient has no signs of distress or SOB. Discussed POC w/ patient, patient verbalized understanding. Safety precautions in place w/ HOB at 30 degrees, side rails up x2, and bed in lowest position. Will continue to monitor.
--- NOTE | 2019-12-10 21:29 | NUR ---
Patient Complains of Pain Patient complains of back pain 10/10 rate. Patient requested medication for pain and medication has been given as prescribed/ordered. Will continue to monitor.
[2019-12-10] MEDS: ATORVASTATIN 20 MG TAB PO SCH (22:26)
[2019-12-10] MEDS: PARoxetine 20 MG TAB PO SCH (22:27)
[2019-12-10] MEDS: LORazepam 0.5 MG TAB PO PRN (22:43)
[2019-12-10 22:44] VITALS: BP 144/75
[2019-12-11] MEDS ORDERED: CYCLOBENZAPRINE HCL 10 MG TAB PO ONE (01:00)
--- NOTE | 2019-12-11 01:00 | NUR ---
Patient complains of muscle spams Patient is complaining of back muscle spasms. Patient is visibly uncomfortable, sitting on edge of bed and rubbing site. Dr. Mckenna paged and gave order for patient for muscle spasm. Medication was given as ordered, will continue to monitor.
[2019-12-11] MEDS ORDERED: CYCLOBENZAPRINE HCL 10 MG TAB ONE (01:01)
[2019-12-11] MEDS ORDERED: GOLYTELY 4L KIT PO ONE (04:00)
[2019-12-11 05:44] VITALS: BP 147/50
[2019-12-11] MEDS: FUROSEMIDE 40 MG/4 ML VIAL IV SCH ×2 (06:00→17:52)
[2019-12-11] MEDS: hydrALAZINE HCL 25 MG TAB PO SCH ×3 (06:14→21:23)
[2019-12-11 06:16] LABS: Basophils # (auto) 0 10 ^3/uL (0-0.2); Basophils % (auto) 0.5 % (0.0-2.0); Eosinophils # (auto) 0.1 10 ^3/uL (0-0.8); Eosinophils % (auto) 0.9 % (0.0-7.0); Hematocrit 22.3 % (36.0-46.0); Hemoglobin 7.8 g/dL (12.2-16.2); Lymphocytes # (auto) 1.2 10 ^3/uL (0.4-5.4); Lymphocytes % (auto) 21.9 % (10.0-50.0); Mean Corpuscular Hemoglobin 34.1 pg (28.0-32.0); Mean Corpuscular Hgb Conc. 34.9 g/dL (32.0-36.0); Mean Corpuscular Volume 97.6 fL (80.0-100.0); Monocytes # (auto) 0.6 10 ^3/uL (0-1.3); Monocytes % (auto) 10.9 % (0.0-12.0); Neutrophils # (auto) 3.7 10 ^3/uL (1.6-8.6); Neutrophils % (auto) 65.8 % (37.0-80.0); Nucleated Red Blood Cells % 0.1 %; Platelet Count (auto) 163 10^3/uL (140-450); Red Blood Cells 2.29 10^6/uL (4.0-5.20); Red Cell Distribution Width 15.6 % (11.8-14.3); White Blood Cell 5.6 10^3/uL (4.4-10.8)
[2019-12-11] MEDS: ACCU-CHEK COMFORT CURVE STRIP VI SCH ×4 (06:18→21:21)
[2019-12-11] MEDS: InsuLIN REG 1unit/0.01ml Soln (100units/ml) SC SCH ×4 (06:18→21:20)
[2019-12-11] MEDS: DULoxetine HCL 30 MG CAP PO SCH (06:23)
[2019-12-11] MEDS: SUCRALFATE 1 GM/10 ML ORAL SUSP PO SCH ×4 (06:24→21:22)
[2019-12-11 06:40] LABS: BUN/Creatinine Ratio 4.8; Calcium 7.4 mg/dL (8.5-10.1)
[2019-12-11] MEDS ORDERED: SODIUM CHL 0.9% 1000 ML BAG XX ONE (07:00)
--- NOTE | 2019-12-11 07:30 | NUR ---
Opening Shift Note Assumed care of patient, awake and alert. No S/S of distress/SOB or pain. Instructed on POC and to call for assist PRN, will continue to monitor for changes Q1hr and PRN.
[2019-12-11] MEDS ORDERED: SODIUM CHLORIDE LOCK 10 ML ONE (08:33)
[2019-12-11] MEDS ORDERED: LIDOCAINE VISCOUS 2% 15ML UD ONE (08:33)
[2019-12-11] MEDS ORDERED: diphenhdrAMINE HCL 50 MG/1 ML VL ONE ×2 (08:33→12:45)
[2019-12-11 09:00] VITALS: BP 132/56
[2019-12-11] MEDS: NICOTINE 21MG/24 HR TOPICAL PATCH TD SCH (09:14)
[2019-12-11] MEDS: levETIRAcetam 500 MG TAB PO SCH ×2 (09:14→21:22)
[2019-12-11] MEDS: hydrOXYchloroQUINE SULFATE 200 MG TAB PO SCH (09:14)
[2019-12-11] MEDS: LORATADINE 10 MG TAB PO SCH (09:14)
[2019-12-11] MEDS: PANTOPRAZOLE 40 MG TAB PO SCH ×2 (09:14→21:22)
[2019-12-11] MEDS: FERROUS SULFATE 325 MG TAB PO SCH ×3 (09:22→17:52)
--- NOTE | 2019-12-11 12:20 | NUR ---
PT TAKEN TO PRE-OP VIA BED. AWAKE, ALERT, ORIENTED. NO DISTRESS NOTED. DENIES PAIN OR SOB.
[2019-12-11] MEDS: MIDAZOLAM HCL 5 MG/ML-1ML VIAL ONE ×3 (12:43→12:56)
[2019-12-11] MEDS: fentaNYL CITRATE 100 MCG/2 ML VL ONE ×3 (12:43→12:56)
[2019-12-11 13:00] VITALS: BP 130/53
[2019-12-11] MEDS ORDERED: MIDAZOLAM HCL 1MG/1ML-2 ML VIAL ONE (13:06)
[2019-12-11] MEDS ORDERED: fentaNYL CITRATE 100 MCG/2 ML VL ONE (13:06)
[2019-12-11] MEDS ORDERED: GAB100C PO (14:35)
[2019-12-11] MEDS ORDERED: PAR20T PO (14:35)
[2019-12-11] MEDS ORDERED: DULO30CA84 PO (14:35)
[2019-12-11] MEDS ORDERED: QUET25TA46 PO (14:35)
[2019-12-11] MEDS ORDERED: FER325T PO (14:35)
[2019-12-11] MEDS ORDERED: INSLANTI SC (14:35)
[2019-12-11] MEDS ORDERED: HYDR-2691 PO (14:35)
[2019-12-11] MEDS ORDERED: PANT40T PO (14:35)
[2019-12-11] MEDS ORDERED: INSLISPI SC (14:35)
[2019-12-11] MEDS ORDERED: KEP500T PO (14:35)
--- NOTE | 2019-12-11 15:00 | NUR ---
SPOKE TO PT'S SISTER, MIRELLA. UPDATED ON PT'S STATUS.
--- NOTE | 2019-12-11 15:16 | NUR ---
APPOINTMENT UNABLE TO MAKE AN APPOINTMENT WITH DR ALTMAN REQUESTED BY DR HANNAH. MD'S OFFICE CLOSES AT 2PM ON FRIDAYS. PER UTILITY WORKER FILM PROCESSING, OFFICE OPENS AT 9 AM ON SATURDAY, UNLESS THEY'RE CLOSED FOR .
--- NOTE | 2019-12-11 15:19 | NUR ---
DIALYSIS AT BEDSIDE
--- NOTE | 2019-12-11 15:51 | NUR ---
RECEIVED A CALL RE: PT'S [place]MBAL[employer] PRESCRIPTION. THE MAXIMUM DOSE THAT THE PATIENT'S INSURANCE WILL COVER IS 60 MG. THE PRESCRIPTION THAT THE MD CALLED IN WAS 90 MG. WILL LET MD KNOW.
--- NOTE | 2019-12-11 16:00 | NUR ---
PER [employer], WAIT AFTER DIALYSIS TO GIVE POTASSIUM IV INFUSION.
[2019-12-11] MEDS: LORazepam 0.5 MG TAB PO PRN (16:32)
[2019-12-11 17:00] VITALS: BP 176/69
[2019-12-11] MEDS: GABAPENTIN 100 MG CAP PO SCH (17:52)
[2019-12-11] MEDS: POTASSIUM CHLORIDE 40 MEQ, LIDOCAINE 1% (LOCAL ANESTH.) 4 ML in SODIUM CHL 0.9% 100 ML IV ONE ×2 (17:53→18:00)
--- NOTE | 2019-12-11 18:40 | NUR ---
PT COMPLAINED OF PAIN ON IV SITE AFTER POTASSIUM IV TRANSFUSION WAS STARTED. IV SITE WAS NOTED TO BE PUFFY AND TENDER. IV DC'd with clean sterile technique, catheter fully intact. Pressure dressing applied to site. Patient tolerated well. NOTE:
[2019-12-11] MEDS ORDERED: POTASSIUM CHL 20 Meq TABLET PO ONE (18:45)
--- NOTE | 2019-12-11 18:45 | NUR ---
PAGED DR LOYA RE: POTASSIUM REPLACEMENT. NEW ORDER TO REPLACE POTASSIUM IV WITH POTASSIUM PO RECEIVED
--- NOTE | 2019-12-11 18:55 | NUR ---
PT REFUSE A NEW IV INSERTION. PT STATED THAT SHE DOESN'T WANT IT BECAUSE SHE'S GOING HOME TOMORROW. PT IS AWARE THAT IF A BLOOD TRANSFUSION IS NEEDED TOMORROW THEN SHE WILL HAVE TO GET A NEW IV ACCESS. PT VERBALIZED UNDERSTANDING.
--- NOTE | 2019-12-11 19:20 | NUR ---
Opening Shift Note Assumed care of patient, awake sitting in bed and AOx4. No S/S of distress/SOB or pain. Instructed on POC and to call for assist PRN, will continue to monitor. Safety precautions in place w/ HOB at 30 degrees, side rails up x2, and bed in lowest position.
--- NOTE | 2019-12-11 19:56 | NUR ---
CLOSING NOTES REPORT GIVEN TO CHAPIN BONILLA. ENDORSED POTASSIUM PO SINCE IT STILL WASN'T AVAILABLE IN THE MEDICATION PYXIS. ALSO INFORMED IRENE OF PT'S PRESCRIPTION ISSUE. PT IS RESTING IN BED AT THIS TIME. NO DISTRESS NOTED. PT HAD DENIED ANY PAIN ALL DAY TODAY.
[2019-12-11 20:00] VITALS: BP 142/60
[2019-12-11] MEDS ORDERED: EPOETIN ALFA 10,000 UNIT/1 ML VIAL SC ONE (21:00)
[2019-12-11] MEDS: INSULIN LANTUS (GLARGINE) 1 /0.01ml (100units/ml) SC SCH (21:21)
[2019-12-11] MEDS: ATORVASTATIN 20 MG TAB PO SCH (21:22)
[2019-12-11] MEDS: PARoxetine 20 MG TAB PO SCH (21:22)
[2019-12-11 22:00] VITALS: BP 142/60
--- NOTE | 2019-12-11 23:00 | NUR ---
HOSPITALIST PAGED FOR POTASSIUM PO FOR K+ 3.0 WAITING FOR A CALL BACK.
[2019-12-12] MEDS: traMADol HCL 50 MG TAB PO PRN ×2 (00:57→11:14)
[2019-12-12] MEDS: LORazepam 0.5 MG TAB PO PRN ×2 (00:57→11:15)
--- NOTE | 2019-12-12 01:00 | NUR ---
PATIENT COMPLAINS OF PAIN PATIENT STATES HER PAIN IS 10/10 AND REQUESTED PAIN MEDICATION. MEDICATION GIVEN PRESCRIBED. WILL CONTINUE TO MONITOR.
[2019-12-12 05:00] VITALS: BP 141/62
--- NOTE | 2019-12-12 05:00 | NUR ---
IV insertion IV access obtained, via clean sterile technique by inserting 20 gauge catheter at right forearm after 1 attempts. IV secured properly. No trauma to site. Patient tolerated procedure well.
[2019-12-12] MEDS: FUROSEMIDE 40 MG/4 ML VIAL IV SCH (05:44)
[2019-12-12] MEDS: hydrALAZINE HCL 25 MG TAB PO SCH (05:46)
[2019-12-12 06:09] LABS: Basophils # (auto) 0 10 ^3/uL (0-0.2); Basophils % (auto) 0.5 % (0.0-2.0); Eosinophils # (auto) 0 10 ^3/uL (0-0.8); Eosinophils % (auto) 0.2 % (0.0-7.0); Hematocrit 22.7 % (36.0-46.0); Hemoglobin 7.7 g/dL (12.2-16.2); Lymphocytes # (auto) 0.9 10 ^3/uL (0.4-5.4); Mean Corpuscular Hemoglobin 33.4 pg (28.0-32.0); Mean Corpuscular Volume 98.3 fL (80.0-100.0); Monocytes # (auto) 0.6 10 ^3/uL (0-1.3); Monocytes % (auto) 10.2 % (0.0-12.0); Neutrophils # (auto) 4.6 10 ^3/uL (1.6-8.6); Neutrophils % (auto) 75.1 % (37.0-80.0); Platelet Count (auto) 162 10^3/uL (140-450); Red Blood Cells 2.31 10^6/uL (4.0-5.20); Red Cell Distribution Width 16.1 % (11.8-14.3); White Blood Cell 6.1 10^3/uL (4.4-10.8)
--- NOTE | 2019-12-12 06:14 | NUR ---
BLOOD GLUCOSE 71 PATIENT WAS GIVEN ORANGE JUICE FOR BG OF 71. WILL RE-CHECK AND CONTINUE TO MONITOR FOR S/S OF HYPOGLYCEMIA.
[2019-12-12 06:25] LABS: Potassium 3.4 mmol/L (3.5-5.1)
[2019-12-12 06:30] LABS: BUN/Creatinine Ratio 5.5; Calcium 7.2 mg/dL (8.5-10.1)
[2019-12-12] MEDS: InsuLIN REG 1unit/0.01ml Soln (100units/ml) SC SCH ×2 (06:35→11:30)
[2019-12-12] MEDS: DULoxetine HCL 30 MG CAP PO SCH (06:36)
[2019-12-12] MEDS: SUCRALFATE 1 GM/10 ML ORAL SUSP PO SCH ×2 (06:36→11:18)
[2019-12-12] MEDS: ACCU-CHEK COMFORT CURVE STRIP VI SCH ×2 (06:37→11:18)
--- NOTE | 2019-12-12 06:45 | NUR ---
BLOOD GLUCOSE RE-CHECK IS 126 PATIENT IS AWAKE, AOX4 WITH NO SIGNS OR SYMPTOMS OF HYPOGLYCEMIA. WILL CONTINUE TO MONITOR.
--- NOTE | 2019-12-12 07:30 | NUR ---
Patient has AV fistula left arm. Fistula has good bruit and thrill. Will continue to monitor.
[2019-12-12] MEDS: FERROUS SULFATE 325 MG TAB PO SCH ×2 (07:53→11:45)
[2019-12-12 09:00] VITALS: BP 136/71
[2019-12-12] MEDS: NICOTINE 21MG/24 HR TOPICAL PATCH TD SCH (10:00)
[2019-12-12] MEDS: levETIRAcetam 500 MG TAB PO SCH (10:49)
[2019-12-12] MEDS: PANTOPRAZOLE 40 MG TAB PO SCH (10:50)
[2019-12-12] MEDS: LORATADINE 10 MG TAB PO SCH (10:50)
[2019-12-12 12:26] VITALS: BP 147/62
[2019-12-12] MEDS ORDERED: POTASSIUM CHLORIDE 8 MEQ TAB PO ONE (12:30)
[2019-12-13] MEDS ORDERED: DULoxetine HCL 30 MG CAP PO SCH (07:00)
== END 2019-12-12 13:20 | disposition home or self-care (01) | DRG 377 ==
LOC: ER 16:14 → TELE 16:15 → TELE-WESTW 20:35
PROVIDERS: ADMIT Hospitalist; ATTEND Internal Medicine
PROC: 30233N1 Transfusion of Nonautologous Red Blood Cells into Peripheral Vein, Percutaneous Approach (ICD-10-PCS; principal; 2019-12-08)
PROC: 5A1D70Z Performance of Urinary Filtration, Intermittent, Less than 6 Hours Per Day (ICD-10-PCS; 2019-12-09)
PROC: 0DBL8ZX Excision of Transverse Colon, Via Natural or Artificial Opening Endoscopic, Diagnostic (ICD-10-PCS; 2019-12-11)
PROC: 5A1D70Z Performance of Urinary Filtration, Intermittent, Less than 6 Hours Per Day (ICD-10-PCS; 2019-12-11)
PROC: 0DB68ZX Excision of Stomach, Via Natural or Artificial Opening Endoscopic, Diagnostic (ICD-10-PCS; 2019-12-11 12:40)
DX: K92.2 Gastrointestinal hemorrhage, unspecified (principal); N18.6 End stage renal disease; I13.2 Hypertensive heart and chronic kidney disease with heart failure and with stage 5 chronic kidney disease, or end stage renal disease; D63.1 Anemia in chronic kidney disease; E66.9 Obesity, unspecified; E86.1 Hypovolemia; I50.9 Heart failure, unspecified; F32.9 Major depressive disorder, single episode, unspecified; F41.9 Anxiety disorder, unspecified; M06.4 Inflammatory polyarthropathy; E11.22 Type 2 diabetes mellitus with diabetic chronic kidney disease; I25.10 Atherosclerotic heart disease of native coronary artery without angina pectoris; E88.09 Other disorders of plasma-protein metabolism, not elsewhere classified; K63.5 Polyp of colon; Z99.2 Dependence on renal dialysis; Z95.1 Presence of aortocoronary bypass graft; Z79.01 Long term (current) use of anticoagulants; Z79.899 Other long term (current) drug therapy; Z80.7 Family history of other malignant neoplasms of lymphoid, hematopoietic and related tissues; Z82.49 Family history of ischemic heart disease and other diseases of the circulatory system; Z82.5 Family history of asthma and other chronic lower respiratory diseases; Z83.3 Family history of diabetes mellitus; Z86.718 Personal history of other venous thrombosis and embolism; Z86.73 Personal history of transient ischemic attack (TIA), and cerebral infarction without residual deficits; Z91.19 Patient's noncompliance with other medical treatment and regimen; Z90.710 Acquired absence of both cervix and uterus; Z82.3 Family history of stroke; Z68.28 Body mass index [BMI] 28.0-28.9, adult; Z91.11 Patient's noncompliance with dietary regimen; Z88.5 Allergy status to narcotic agent
CPT/HCPCS: 36415; 43239; 45384; 71045; 76856; 80048; 80053; 82270; 82378; 82728; 82962; 83540; 83550; 83615; 83735; 84100; 85025; 85045; 85610; 85730; 86850; 86900; 86901; 86920; 87081; 90935; 93005; G0378; J0885; J1642; J1815; J2001; J2250

== ENCOUNTER 2020-04-28 13:53 | Inpatient (IN) | payer OTHER, MEDICAID ==
[~2020-04-28] VITALS: Ht 172.7 cm; Wt 81.0 kg
[~2020-04-28 13:53] MED LIST changes: -APIX2.5T PO; +DULO30CA84 PO; -DULO60CA PO; +FER325T PO; +FURO1TAB32 PO; +GAB100C PO; -GABA100C9 PO; -GLYB; +HYDR-2691 PO; -HYDR-4296 PO; +INSLANTI SC; +INSLISPI SC; +KEP500T PO; -LEVE500T32 PO; -LEVEMIR SC; -LORA-622 PO; +LORA0.5T20 PO; -LORA1TAB23 PO; -NIC21P TOP; -NIFE1TAB36 PO; +QUET25TA46 PO; -TRAM50TA2 PO; -TRAZ100T3 PO
[2020-04-28 16:03] LABS: Basophils # (auto) 0 10 ^3/uL (0-0.2); Eosinophils # (auto) 0 10 ^3/uL (0-0.8); Hematocrit 11.7 % (36.0-46.0); Neutrophils # (auto) 2.3 10 ^3/uL (1.6-8.6); White Blood Cell 3.7 10^3/uL (4.4-10.8)
[2020-04-28 16:05] LABS: Lymphocytes # (auto) 0.9 10 ^3/uL (0.4-5.4); Lymphocytes % (auto) 24.9 % (10.0-50.0); Mean Corpuscular Hemoglobin 32.4 pg (28.0-32.0); Mean Corpuscular Hgb Conc. 33.4 g/dL (32.0-36.0); Mean Corpuscular Volume 97.2 fL (80.0-100.0); Monocytes # (auto) 0.4 10 ^3/uL (0-1.3); Monocytes % (auto) 12.1 % (0.0-12.0); Nucleated Red Blood Cells % 0.4 %; Platelet Count (auto) 169 10^3/uL (140-450); Red Cell Distribution Width 19.2 % (11.8-14.3)
[2020-04-28 16:17] LABS: Hemoglobin 3.9 g/dL (12.2-16.2)
[2020-04-28 16:24] LABS: Potassium 4.2 mmol/L (3.5-5.1)
[2020-04-28 16:32] LABS: Albumin 2.2 g/dL (3.4-5.0); BUN/Creatinine Ratio 10.3; Bilirubin, Total 0.4 mg/dL (0.2-1.0); Total Protein 4.9 g/dL (6.4-8.2)
[2020-04-28 16:53] LABS: INR 1.04 (0.9-1.15); Partial Thromboplastin Time 26.4 sec (23.0-31.2)
[2020-04-28] MEDS ORDERED: ACETAMINOPHEN 500 MG TAB PO ONE (17:15)
[2020-04-28] MEDS ORDERED: MORPHINE SULF INJ 2 MG/ML SYRINGE 1ML IV PRN ×3 (17:15→21:00)
[2020-04-28] MEDS ORDERED: diphenhdrAMINE HCL 25 MG CAP PO ONE ×2 (17:15→17:30)
[2020-04-28] MEDS ORDERED: NITROGLYCERIN 0.4 MG SL TAB SL PRN ×2 (17:15→19:45)
[2020-04-28] MEDS ORDERED: ACETAMINOPHEN 325 MG TAB PO ONE (17:30)
[2020-04-28] MEDS ORDERED: ONDANSETRON HCL 4 MG/2 ML VIAL ONE (17:50)
[2020-04-28] MEDS: ONDANSETRON HCL 4 MG/2 ML VIAL IV PRN ×2 (17:55→22:00)
[2020-04-28] MEDS ORDERED: GOLYTELY 4L KIT PO ONE (18:00)
[2020-04-28 18:29] VITALS: BP 150/46
[2020-04-28 18:45] VITALS: BP 151/34
[2020-04-28] MEDS ORDERED: PANT40T PO (19:12)
[2020-04-28] MEDS ORDERED: CLOP75TA28 PO (19:12)
[2020-04-28] MEDS ORDERED: LORA0.5T19 PO (19:12)
[2020-04-28] MEDS ORDERED: ASPI-543 PO (19:12)
[2020-04-28] MEDS ORDERED: GAB100C PO (19:12)
[2020-04-28] MEDS ORDERED: DULO60CA90 PO (19:12)
[2020-04-28] MEDS ORDERED: FURO1TAB32 PO (19:12)
[2020-04-28] MEDS ORDERED: NIFE1TAB30 PO (19:12)
[2020-04-28] MEDS ORDERED: ATOR1TAB PO (19:12)
[2020-04-28] MEDS ORDERED: APIX2.5T PO (19:12)
[2020-04-28] MEDS ORDERED: DEXTROSE (50%) 50ML SYRG IV PRN (19:45)
[2020-04-28] MEDS ORDERED: ONDANSETRON HCL 4 MG/2 ML VIAL IV PRN (19:45)
[2020-04-28] MEDS ORDERED: HYDROcodone-ACET 5/325MG TAB PO PRN (19:45)
[2020-04-28] MEDS ORDERED: ACETAMINOPHEN 325 MG TAB PO PRN (19:45)
[2020-04-28] MEDS ORDERED: DOCUSATE SOD 100 MG CAP PO PRN (19:45)
[2020-04-28] MEDS ORDERED: hydrALAZINE HCL 25 MG TAB PO PRN ×2 (19:45→21:15)
[2020-04-28] MEDS ORDERED: ALUM & MAG HYDROX-SIMETH LIQ(MAALOX) 30 ML PO PRN (19:45)
[2020-04-28 21:22] VITALS: BP 166/25
[2020-04-28] MEDS: QUEtiapine FUMARATE 25 MG TAB PO SCH (21:53)
[2020-04-28] MEDS: ATORVASTATIN 20 MG TAB PO SCH (21:53)
[2020-04-28] MEDS: levETIRAcetam 500 MG TAB PO SCH (21:54)
[2020-04-28] MEDS: SUCRALFATE 1 GM TAB PO SCH (21:54)
[2020-04-28] MEDS: hydrALAZINE HCL 25 MG TAB PO SCH (21:56)
[2020-04-28] MEDS: PANTOPRAZOLE 40 MG/10 ML VIAL INJ IV SCH (21:57)
[2020-04-28] MEDS: GABAPENTIN 100 MG CAP PO SCH (21:57)
[2020-04-28] MEDS: SODIUM FERR GLUC 62.5MG/5ML 125 MG in SODIUM CHL 0.9% 100 ML IV ONE (21:58)
[2020-04-28] MEDS ORDERED: InsuLIN REG 1unit/0.01ml Soln (100units/ml) SC SCH (22:00)
[2020-04-28] MEDS: MORPHINE SULF INJ 2 MG/ML SYRINGE 1ML IV PRN (22:00)
[2020-04-28] MEDS ORDERED: PARoxetine 20 MG TAB PO SCH (22:00)
[2020-04-28 22:17] VITALS: BP 169/35
[2020-04-28 22:35] VITALS: BP 155/57
[2020-04-28] MEDS: ACCU-CHEK COMFORT CURVE STRIP VI SCH (23:54)
[2020-04-29] VITALS (21 sets, daily range): BP systolic 129–169; BP diastolic 35–131
--- NOTE | 2020-04-29 01:00 | NUR ---
Admit to [facility] JAQUELINE HANSENadmitted to [facility] via gurney on alarm security or surveillance monitor, and portable 02. Patient transferred to bed, connected to unit monitoring and oxygen, and weighed by bedscale. Patient oriented to Olivia barbosa RN, unit, room, bed, and unit policies regarding patient care and visiting hours. All questions and concerns addressed, patient verbalized understanding. RECEIVED PATIENT FROM ER. PATIENT IS A/OX4 CONNECTED TO BEDSIDE MONITOR. PATIENT IS ON ROOM AIR WITH SPO2 99%. MULTIPLE SCABBED AREAS OVER PATIENTS COCCYX/SACRUM/BUTTOCKS. PATIENT STATES SHE HAD A WOUND TO HER COCCYX AREA "ABOUT A MONTH AGO". COCCYX IS DRY AND SCABBED OVER NOW. LEFT UPPER ARM FISTULA NOTED. IV NOTED TO RIGHT AC INTACT AND PATENT. SEIZURE AND FALL PRECAUTIONS INITIATED.
[2020-04-29 01:46] LABS: Hematocrit 18.9 % (36.0-46.0)
[2020-04-29] MEDS: SODIUM FERR GLUC 62.5MG/5ML 125 MG in SODIUM CHL 0.9% 100 ML IV ONE (01:50)
[2020-04-29 01:55] LABS: Hemoglobin 6.4 g/dL (12.2-16.2)
--- NOTE | 2020-04-29 02:05 | NUR ---
PAGED HOSPITALIST HOSPITALIST PAGED REGARDING CRITICAL HEMOGLOBIN LEVEL WILL WAIT FOR CALL BACK
--- NOTE | 2020-04-29 02:11 | NUR ---
HOSPITALIST CALLED BACK SPOKE WITH HOSPITALIST CARSON BARLOW NP. UPDATED MD ON CRITICAL HEMOGLOBIN LEVEL. NEW ORDER RECEIVED FOR 2 UNITS OF PRBC. ALSO UPDATED HOSPITALIST OF PATIENTS ELEVATED BP. NEW ORDER FOR AMLODIPINE 10MG PO DAILY STARTING NOW. ALL ORDERS READ BACK AND VERIFIED WITH HOSPITALIST.
--- NOTE | 2020-04-29 02:20 | NUR ---
BLOOD BANK SPOKE WITH NEGRITO FROM BLOOD BANK. PER NEGRITO, NEW ORDER FOR PRBC DOES NOT NEED TO BE PLACED AT THIS TIME SINCE ER PLACED ORDER FOR 4 UNITS PRBC EARLIER TODAY AND ONLY 2 UNITS HAVE BEEN GIVEN. PER NEGRITO, THERE ARE 2 AVAILABLE UNITS OF PRBC FOR THE PATIENT NOW.
[2020-04-29] MEDS: amLODIPine BESYLATE 5 MG TAB PO SCH ×2 (02:25→10:26)
[2020-04-29] MEDS ORDERED: amLODIPine BESYLATE 5 MG TAB PO SCH (02:30)
--- NOTE | 2020-04-29 02:45 | NUR ---
PAIN PATIENT STATES SHE IS HAVING GENERALIZED BODY PAIN AND IS REQUESTING FOR HER MORPHINE. MORPHINE IS LISTED PATIENT ALLERGY. PATIENT STATES, "I'M NOT ALLERGIC TO IT, THEY GAVE IT TO ME DOWN IN THE ER". CONFIRMED WITH PATIENT THAT SHE IS NOT ALLERGIC TO MORPHINE.
[2020-04-29] MEDS: MORPHINE SULF INJ 2 MG/ML SYRINGE 1ML IV PRN ×2 (02:52→10:39)
--- NOTE | 2020-04-29 03:22 | NUR ---
PRBC STARTED ONE UNIT OF PRBC AT THIS TIME AFTER SECOND RN FELIPE Delaney HAS VERIFIED ALL PATIENTS INFO AND BLOOD PRODUCT INFORMATION. BASELINE VITALS: 98.4F, 77BPM, 157/55, R 14/MIN, SPO2 100%.
[2020-04-29] MEDS: hydrALAZINE HCL 25 MG TAB PO SCH ×3 (05:35→21:53)
[2020-04-29] MEDS: GABAPENTIN 100 MG CAP PO SCH ×3 (05:35→21:52)
--- NOTE | 2020-04-29 05:49 | NUR ---
PRBC ENDED NO SIGNS OF REACTION.
[2020-04-29] MEDS ORDERED: GOLYTELY 4L KIT PO ONE (06:00)
[2020-04-29] MEDS ORDERED: FUROSEMIDE 40 MG/4 ML VIAL IV SCH (06:00)
--- NOTE | 2020-04-29 06:05 | NUR ---
PRBC NEW UNIT OF PRBC STARTED AFTER VERIFICATION OF PATIENT INFORMATION AND ALL BLOOD COMPONENTS COMPLETED WITH SECOND RN QUINCY Sena PATIENT VITALS PRIOR TO START OF BLOOD: 98.0F, 77, 161/56, R 12, SPO2 97%.
[2020-04-29] MEDS: SUCRALFATE 1 GM TAB PO SCH ×4 (06:15→21:52)
[2020-04-29] MEDS: ACCU-CHEK COMFORT CURVE STRIP VI SCH (06:17)
--- NOTE | 2020-04-29 06:19 | NUR ---
ACCU CHECK PATIENTS MORNING BLOOD GLUCOSE WAS 69 PATIENT GIVEN 2 BOXES OF APPLE JUICE AND JELL-O. PATIENT IS ON A CLEAR LIQUID DIET. PATIENT TOLERATED SNACKS AND JUICE WELL.
[2020-04-29] MEDS ORDERED: InsuLIN REG 1unit/0.01ml Soln (100units/ml) SC SCH (07:00)
--- NOTE | 2020-04-29 07:10 | NUR ---
CLOSING REPORT ENDORSED TO RN SUREKHA PATIENT RUNNING LAST UNIT OF PRBC AT THIS TIME. NO S/S OF DISTRESS, CALL LIGHT WITHIN REACH.
[2020-04-29] MEDS: CALCIUM ACETATE 667 MG CAP PO SCH ×3 (08:29→17:42)
[2020-04-29] MEDS: PANTOPRAZOLE 40 MG/10 ML VIAL INJ IV SCH ×2 (10:25→21:52)
[2020-04-29] MEDS: levETIRAcetam 500 MG TAB PO SCH ×2 (10:26→21:52)
--- NOTE | 2020-04-29 11:48 | NUR ---
WOUND CARE NOTE: Wound care in to see patient per wound care request regarding skin issue noted on admission. Bedside nurse took photograph of patient's skin issue upon admission for reference. Patient is 54 years old female with admitting diagnosis of Severe Symptomatic Anemia. Patient is resting in low air loss SDU bed in Rm. 262. Patient is awake, alert and oriented. Patient is in no stated pain at this time and she appears to be in no pain using Short [place] Faces Pain Scale. She's able to assist in turning and repositioning and her Vega score is 15. Skin assessment done with the assistance of patient's nurse, CHAPIN Santos. Patient noted with intact pink collagen scar tissue to coccyx with thin brown scabs to sacral surrounding skin. This appears to be from old pressure injury of unknown age and stage and thin scabs appears to be from resolving MASD. (Moisture associated skin damage). Caren care given, applied Z Guard cream to sacral, buttocks and covered upper sacrum with protective Opti foam gentle dressing. Repositioned patient for comfort facing her Lt side, redistributed pressure points with pillows. Patient tolerated well. CHPAIN Santos at bedside. RECOMMENDATION: Nursing to continue with BID/PRN cleaning and application of Z Guard cream to sacral, buttocks per MD order, frequent turning and repositioning schedule as condition permits, redistribute pressure points with pillows, frequent caren care/check, keep clean and dry, continue monitoring by wound care while patient is hospitalized. Addendum: 04/29/20 at 1457 by Ela Avilez RN Amended: Links added.
[2020-04-29] MEDS ORDERED: SODIUM FERR GLUC 62.5MG/5ML 125 MG in SODIUM CHL 0.9% 100 ML IV SCH (12:00)
[2020-04-29 13:17] LABS: Eosinophils # (auto) 0 10 ^3/uL (0-0.8); Eosinophils % (auto) 0.3 % (0.0-7.0); Lymphocytes # (auto) 0.7 10 ^3/uL (0.4-5.4); Mean Corpuscular Volume 88.3 fL (80.0-100.0); Monocytes # (auto) 0.5 10 ^3/uL (0-1.3); Nucleated Red Blood Cells % 0.2 %
[2020-04-29 13:20] LABS: Basophils # (auto) 0.1 10 ^3/uL (0-0.2); Hematocrit 24.4 % (36.0-46.0); Hemoglobin 8.3 g/dL (12.2-16.2); Lymphocytes % (auto) 13.6 % (10.0-50.0); Mean Corpuscular Hemoglobin 30.2 pg (28.0-32.0); Mean Corpuscular Hgb Conc. 34.2 g/dL (32.0-36.0); Monocytes % (auto) 9.4 % (0.0-12.0); Neutrophils # (auto) 3.8 10 ^3/uL (1.6-8.6); Neutrophils % (auto) 75.7 % (37.0-80.0); Platelet Count (auto) 118 10^3/uL (140-450); Red Blood Cells 2.76 10^6/uL (4.0-5.20); Red Cell Distribution Width 16.7 % (11.8-14.3)
--- NOTE | 2020-04-29 14:52 | NUR ---
PATIENT HAD TOTAL OF 4 UNITS OF BLOOD SINCE ADMISSION AND HGB INCREASED TO 8.2. PATIENT HAD 1 BM GREENISH COLOR BUT MUCOID IN APPEARANCE. PATIENT C/O SOB AND OYGEN AT 3 LITERS APPLIED .
--- NOTE | 2020-04-29 15:08 | NUR ---
DR MCQUEEN NOTIFIED OF THE CONSULT .
[2020-04-29] MEDS: LORazepam 0.5 MG TAB PO PRN ×2 (16:25→23:47)
--- NOTE | 2020-04-29 19:20 | NUR ---
OPENING NOTE REPORT RECEIVED FROM KRYSTAL SAMSON PATIENT IS A/OX4 CONNECTED TO CONTINUOUS BEDSIDE MONITORS. PATIENT IS IN SINUS RHYTHM IN THE 70'S WITH SPO2 98% ON ROOM AIR. PHYSICAL ASSESSMENT DONE-SEE INTERVENTIONS. FISTULA TO LEFT UPPER ARM IN PLACE. PERIPHERAL IV TO RIGHT AC INTACT AND PATENT. MULTIPLE SCABBED AREAS TO LEFT AND RIGHT BUTTOCKS WELL COCCYX. OPTIFOAM ON SACRUM. PATIENT IS ABLE TO TURN AND REPOSITION SELF WITHOUT DIFFICULTY. POC DISCUSSED AND ALL QUESTIONS ANSWERED.
[2020-04-29] MEDS: QUEtiapine FUMARATE 25 MG TAB PO SCH (21:52)
[2020-04-29] MEDS: ATORVASTATIN 20 MG TAB PO SCH (21:52)
--- NOTE | 2020-04-29 23:30 | NUR ---
LABS CALLED LAB REGARDING 2335 ORDERED BLOOD DRAW FOR HEMOGLOBIN AND HEMATOCRIT. AWAITING FOR [facility] SI[facility]ER TO ARRIVE.
[2020-04-30] VITALS (16 sets, daily range): BP systolic 107–196; BP diastolic 40–97
--- NOTE | 2020-04-30 00:45 | NUR ---
LAB CALLED LAB AGAIN REGARDING ORDERED HEMOGLOBIN AND HEMATOCRIT. STILL WAITING FOR MARBLEIZING MACHINE TENDER. PER REHABILITATION DIRECTOR, "THEY WILL BE THERE SOON".
[2020-04-30 02:22] LABS: Hematocrit 20.4 % (36.0-46.0)
--- NOTE | 2020-04-30 02:26 | NUR ---
AM CARE PATIENT RECEIVED FULL BED BATH AND LINEN CHANGE. PATIENT HAD AN INCONTINENCE EPISODE OF URINE. FULL LINEN CHANGE PROVIDED. PATIENT CLEANED WITH CHG WIPES. NEW GOWN PROVIDED TO PATIENT. PATIENT SKIN REASSESSED AT THIS TIME. NO CHANGES SINCE START OF SHIFT.
[2020-04-30 02:27] LABS: Hemoglobin 6.9 g/dL (12.2-16.2)
--- NOTE | 2020-04-30 02:32 | NUR ---
CRITICAL LAB PAGED HOSPITALIST REGARDING CRITICAL HEMOGLOBIN LEVEL OF 6.9, AWAITING CALL BACK
--- NOTE | 2020-04-30 02:38 | NUR ---
HOSPITALIST CALLED BACK NEW ORDER RECEIVED FOR 2 UNITS PRBC. ORDER READ BACK AND VERIFIED. WILL CARRY OUT ORDER.
--- NOTE | 2020-04-30 03:30 | NUR ---
BLOOD BANK CALLED BLOOD BANK TO CHECK ON STATUS OF 2 UNITS OF PRBC. PER DARREN IN BLOOD BANK, IT IS STILL NOT READY. WILL KEEP CHECKING TO SEE WHEN BLOOD IS AVAILABLE.
--- NOTE | 2020-04-30 04:19 | NUR ---
PRBC 1ST UNIT OF PRBC STARTED AT 0415 AFTER ALL PATIENT INFORMATION AND BLOOD COMPONENTS VERIFIED WITH SECOND RN IKE Thompson BASELINE VITALS PRIOR TO STARTING INFUSION: 98.0F, 79HR, 161/59, R15, SPO2 99%.
[2020-04-30] MEDS: hydrALAZINE HCL 25 MG TAB PO SCH ×3 (06:26→21:07)
[2020-04-30] MEDS: GABAPENTIN 100 MG CAP PO SCH ×3 (06:26→21:07)
[2020-04-30] MEDS: SUCRALFATE 1 GM TAB PO SCH ×4 (06:26→21:07)
--- NOTE | 2020-04-30 06:41 | NUR ---
1ST UNIT OF PRBC ENDED NO SIGNS OF ADVERSE REACTION NOTED
--- NOTE | 2020-04-30 06:54 | NUR ---
SECOND UNIT OF PRBC STARTED AT 0652 AFTER PATIENT INFORMATION AND BLOOD COMPONENTS VERIFIED WITH SECOND RN IKE Thompson BASELINE VITALS TAKEN: 98.0F, 73, 151/59, R 12, SPO2 97%.
[2020-04-30] MEDS ORDERED: SODIUM CHL 0.9% 1000 ML BAG XX ONE (07:00)
--- NOTE | 2020-04-30 07:14 | NUR ---
CLOSING PATIENT RUNNING SECOND UNIT OF PRBC. NO S/S OF DISTRESS NOTED. PATIENT CONNECTED TO CONTINUOUS BEDSIDE MONITORS. CARE ENDORSED TO DAYSHIFT CHAPIN IRBY TO ASSUME CARE OF PATIENT.
[2020-04-30] MEDS: CALCIUM ACETATE 667 MG CAP PO SCH ×3 (08:00→17:17)
[2020-04-30] MEDS: PANTOPRAZOLE 40 MG/10 ML VIAL INJ IV SCH ×2 (10:00→21:06)
[2020-04-30] MEDS: levETIRAcetam 500 MG TAB PO SCH ×2 (10:00→21:07)
[2020-04-30] MEDS: FUROSEMIDE 40 MG TAB PO SCH (10:00)
--- NOTE | 2020-04-30 10:00 | NUR ---
CARIN CAME AND SAW THE PATIENT. PATIENT HAVING HEMODIALYSIS WHEN SHE CAME TO SEE THE PATIENT. NOTIFIED THAT PATIENT IS HAVING BLOODY STOOL AND NOTIFIED RE: FAVIAN THAT PATIENT IS DIALYZING.
--- NOTE | 2020-04-30 10:15 | NUR ---
PATIENT IS HAVING DIALYSIS. ATTEMPT P.T. LATER.
[2020-04-30] MEDS ORDERED: GOLYTELY 4L KIT PO ONE ×2 (10:30→12:15)
[2020-04-30 10:44] LABS: Basophils # (auto) 0 10 ^3/uL (0-0.2); Basophils % (auto) 0.8 % (0.0-2.0); Eosinophils # (auto) 0 10 ^3/uL (0-0.8); Eosinophils % (auto) 0.4 % (0.0-7.0); Lymphocytes # (auto) 0.9 10 ^3/uL (0.4-5.4); Lymphocytes % (auto) 30.2 % (10.0-50.0); Mean Corpuscular Hemoglobin 30.4 pg (28.0-32.0); Mean Corpuscular Hgb Conc. 34.4 g/dL (32.0-36.0); Mean Corpuscular Volume 88.4 fL (80.0-100.0); Monocytes # (auto) 0.2 10 ^3/uL (0-1.3); Monocytes % (auto) 6.1 % (0.0-12.0); Neutrophils # (auto) 1.8 10 ^3/uL (1.6-8.6); Neutrophils % (auto) 62.5 % (37.0-80.0); Nucleated Red Blood Cells % 0.2 %; Platelet Count (auto) 97 10^3/uL (140-450); Red Blood Cells 2.95 10^6/uL (4.0-5.20); White Blood Cell 2.9 10^3/uL (4.4-10.8)
[2020-04-30 11:01] LABS: % Iron Saturation 106.8 % (15-50); BUN/Creatinine Ratio 10.9; Calcium 6.5 mg/dL (8.5-10.1); Magnesium 2.1 mg/dL (1.6-2.6); Potassium 4.5 mmol/L (3.5-5.1)
[2020-04-30] MEDS: NIFEdipine ER 30 MG TAB PO SCH (13:36)
--- NOTE | 2020-04-30 14:41 | NUR ---
Midline Placement: Patient educated on need for midline placement. All risks and benefits explained and all questions and concerns addresses prior to procedure. 4Fr 20cm midline inserted via right basilic vein using Ultrasound. Sterile technique utilized. Blood return obtained from the single lumen and flushed easily with NS using proper technique. Midline secured with saline lock; biodisc and occlusive dressing applied. Primary RN notified. Midline lot #[id number]. Internal length 20cm External length 0cm
--- NOTE | 2020-04-30 15:22 | NUR ---
DR FONTENOT CAME AND SAW THE PATIENT AND NOTIFIED THAT PATIENT HAVE 2 EPISODES OF LIQUID STOOL LARGE AMOUNT. LINENS CHANGED 3 X. FLEXISEAL INSERTED. GOLYTELY GIVEN AND PATIENT TRYING TO FINISH THE JUG.
[2020-04-30 15:41] LABS: Hematocrit 25.1 % (36.0-46.0); Hemoglobin 8.7 g/dL (12.2-16.2)
[2020-04-30] MEDS: LORazepam 0.5 MG TAB PO PRN (16:54)
--- NOTE | 2020-04-30 19:40 | NUR ---
OPENING NOTE REPORT RECEIVED FROM KRYSTAL RN PATIENT IS A/OX4 AND CONNECTED TO CONTINUOUS BEDSIDE MONITORS. PATIENT IS ON ROOM AIR WITH SPO2 97%. NO RESPIRATORY ISSUES NOTED. LEFT UPPER ARM FISTULA NOTED, BRUIT AND THRILL PRESENT. PATIENT HAD HD TODAY WITH 4L TAKEN OUT. MIDLINE TO RIGHT UPPER ARM INTACT AND PATENT. FLEXISEAL IN PLACE AND IS LEAKING EVERYWHERE. EDUCATED PATIENT THAT FLEXISEAL IS LEAKING AND MUST BE REINFLATED. PATIENT SOBBING AND STATING, "I WANT THIS OUT OF MY BUTT RIGHT NOW, IT'S HURTING ME SO BAD". BECAUSE PATIENT IS INCONTINENT , THIS RN EDUCATED PATIENT THE RISK OF MOISTURE ASSOCIATED SKIN DAMAGE IF I COMPLETELY REMOVE FLEXISEAL, PATIENT VERBALIZED UNDERSTANDING AND DEMANDED IT BE REMOVED. FLEXISEAL REMOVED PER PATIENT REQUEST AND DUE TO LEAKING. PATIENT REFUSES NEW FLEXISEAL BE PLACED. GREENISH YELLOW WATERY BOWEL MOVEMENTS NOTED ON CHUX. PATIENT HAS COMPLETED ORDERED GOLYTELY FOR PENDING COLONOSCOPY TOMORROW. PATIENT CLEANED WITH WARM WASH CLOTHS. EXCORIATED SKIN NOTED TO BUTTOCKS AND JACEY AREA. EDUCATED PATIENT ON THE NEED TO KEEP DRY TO PREVENT FURTHER EXCORIATION AND SKIN DAMAGE. Z GUARD APPLIED TO BUTTOCKS AND SACRUM. NO OPEN WOUNDS AT THIS TIME. OLD SCAR TISSUE TO COCCYX. PATIENT ABLE TO ASSIST WITH TURNING AND REPOSITIONING. POC DISCUSSED, ALL QUESTIONS ANSWERED. FALL AND SEIZURE PRECAUTIONS IN PLACE, CALL LIGHT WITHIN REACH.
--- NOTE | 2020-04-30 20:15 | NUR ---
INCONTINENCE PATIENT HAD LARGE LIQUID GREEN BM. COMPLETE LINEN AND GOWN CHANGE PROVIDED TO PATIENT. Z GUARD REAPPLIED TO BUTTOCKS.
[2020-04-30] MEDS: MORPHINE SULF INJ 2 MG/ML SYRINGE 1ML IV PRN (20:18)
--- NOTE | 2020-04-30 20:30 | NUR ---
PM CARE PATIENT GIVEN COMPLETE BED BATH AND LINEN CHANGE. PATIENT WAS NOTED TO HAVE A LARGE LIQUID BOWEL MOVEMENT. ALL LINENS CHANGED. PATIENT CLEANSED WITH CHG WIPES. NO OPEN AREAS TO SACRUM NOTED. GOWN CHANGE ALSO PROVIDED TO PATIENT.
[2020-04-30] MEDS ORDERED: EPOETIN ALFA 10,000 UNIT/1 ML VIAL SC ONE (21:00)
[2020-04-30] MEDS: QUEtiapine FUMARATE 25 MG TAB PO SCH (21:06)
[2020-04-30] MEDS: ATORVASTATIN 20 MG TAB PO SCH (21:07)
--- NOTE | 2020-04-30 21:15 | NUR ---
INCONTINENCE PATIENT CLEANED USING WARM SOAPY WASH CLOTHS. PARTIAL LINEN CHANGE PROVIDED. PATIENT ABLE TO HELP WITH TURNING AND REPOSITIONING. Z GUARD REAPPLIED TO SACRAL AREA
[2020-04-30 22:07] LABS: Hematocrit 22.6 % (36.0-46.0)
[2020-05-01] VITALS (12 sets, daily range): BP systolic 100–170; BP diastolic 38–96
--- NOTE | 2020-05-01 03:00 | NUR ---
SKIN TEAR NEW SKIN TEAR NOTED TO RIGHT AC WHERE OLD IV SITE WAS. THIS RN REMOVED COBAN/TAPE FROM RIGHT AC FOR PATIENT COMFORT, NEW SKIN TEAR REVEALED. WOUND PHOTO TAKEN AND WOUND FORM FILLED AND PLACED IN APPROPRIATE BASKET.
[2020-05-01 03:32] LABS: Hematocrit 22.1 % (36.0-46.0); Hemoglobin 7.6 g/dL (12.2-16.2)
[2020-05-01] MEDS: SUCRALFATE 1 GM TAB PO SCH ×4 (06:24→21:44)
[2020-05-01] MEDS: GABAPENTIN 100 MG CAP PO SCH ×3 (06:24→21:44)
[2020-05-01] MEDS: hydrALAZINE HCL 25 MG TAB PO SCH ×3 (06:24→21:44)
--- NOTE | 2020-05-01 06:30 | NUR ---
AM CARE PATIENT GIVEN COMPLETE GOWN AND LINEN CHANGE THIS AM. PATIENT HAD A SMALL WATERY GREEN LOOSE BM. COMPLETE LINEN CHANGE PROVIDED. PATIENT CLEANSED WITH WARM SOAPY WASH CLOTHS. PATIENT ABLE TO ASSIST IS REPOSITIONING. SKIN REASSESSED AT THIS TIME, NO CHANGES NOTED. BUTTOCKS REMAIN EXCORIATED, NO OPEN AREAS TO BUTTOCKS OR SACRUM NOTED.
[2020-05-01] MEDS: MORPHINE SULF INJ 2 MG/ML SYRINGE 1ML IV PRN ×3 (06:48→21:21)
--- NOTE | 2020-05-01 07:05 | NUR ---
Assumed care of pt., report received per CHAPIN Baker. No distress noted, pt. attached to central monitor and reading sinus rhythm 70's /s ectopy, VSS, will cont.to monitor for any changes, call wilburn in reach, assessment ongoing.
--- NOTE | 2020-05-01 07:17 | NUR ---
CLOSING PATIENT RESTING COMFORTABLY IN BED. PATIENT NPO PENDING COLONOSCOPY TODAY. CONSENTS SIGNED AND PLACED IN HARD CHART. CARE ENDORSED TO CHAPIN MORENO TO ASSUME CARE OF PATIENT.
[2020-05-01] MEDS ORDERED: SODIUM CHLORIDE LOCK 10 ML ONE (09:16)
[2020-05-01] MEDS ORDERED: FLUMAZENIL 0.1 MG/ML INJ 10ML MDV IV ONE (09:16)
[2020-05-01] MEDS ORDERED: NALOXONE HCL 0.4 MG/ML VIAL ONE (09:16)
[2020-05-01] MEDS ORDERED: diphenhdrAMINE HCL 50 MG/1 ML VL ONE (09:17)
[2020-05-01] MEDS: NIFEdipine ER 30 MG TAB PO SCH (10:09)
[2020-05-01] MEDS: levETIRAcetam 500 MG TAB PO SCH ×2 (10:10→21:44)
[2020-05-01] MEDS: DULoxetine HCL 30 MG CAP PO SCH (10:10)
[2020-05-01] MEDS: FUROSEMIDE 40 MG TAB PO SCH (10:10)
[2020-05-01] MEDS: fentaNYL CITRATE 100 MCG/2 ML VL ONE ×4 (10:25→10:43)
[2020-05-01] MEDS: MIDAZOLAM HCL 5 MG/ML-1ML VIAL ONE ×4 (10:25→10:43)
[2020-05-01] MEDS: CALCIUM ACETATE 667 MG CAP PO SCH ×3 (10:34→18:11)
[2020-05-01] MEDS: PANTOPRAZOLE 40 MG/10 ML VIAL INJ IV SCH ×2 (10:34→21:45)
[2020-05-01] MEDS ORDERED: Ensure HIGH Protein Chocolate 8oz Bottle PO SCH ×2 (12:00→14:15)
[2020-05-01] MEDS: ENSURE CLEAR Mixed Berry 8oz Carton PO SCH (18:11)
[2020-05-01 18:32] LABS: Hematocrit 27.8 % (36.0-46.0); Hemoglobin 9.4 g/dL (12.2-16.2)
--- NOTE | 2020-05-01 19:10 | NUR ---
No distress noted, pt. report given to CHAPIN Mcclendon. Care of pt. assumed per NOC RN, day shift RN relinquished care and signed off.
--- NOTE | 2020-05-01 20:00 | NUR ---
opening note patient aox4, following commands stating >95%spo2 on bedside monitor. sr 75 with pvc's. bp 139/50 no pressure support. pulses all palpable. right upper arm midline intact. bed locked and in lowest position. call light within reach. all fall and safety precautions in place. updated patient on poc, teaching provided.
[2020-05-01] MEDS: ATORVASTATIN 20 MG TAB PO SCH (21:44)
[2020-05-01] MEDS: QUEtiapine FUMARATE 25 MG TAB PO SCH (21:45)
--- NOTE | 2020-05-01 22:39 | NUR ---
complete linen change provided skin reassessed and no new break down noted
[2020-05-02] VITALS: BP 138/49
[2020-05-02] MEDS: MORPHINE SULF INJ 2 MG/ML SYRINGE 1ML IV PRN ×4 (03:10→22:23)
[2020-05-02 03:28] LABS: Basophils # (auto) 0 10 ^3/uL (0-0.2); Basophils % (auto) 0.5 % (0.0-2.0); Eosinophils # (auto) 0 10 ^3/uL (0-0.8); Hematocrit 27.9 % (36.0-46.0); Hemoglobin 9.6 g/dL (12.2-16.2); Lymphocytes # (auto) 0.8 10 ^3/uL (0.4-5.4); Lymphocytes % (auto) 25.8 % (10.0-50.0); Mean Corpuscular Hemoglobin 30.5 pg (28.0-32.0); Mean Corpuscular Hgb Conc. 34.4 g/dL (32.0-36.0); Mean Corpuscular Volume 88.8 fL (80.0-100.0); Monocytes # (auto) 0.4 10 ^3/uL (0-1.3); Monocytes % (auto) 13.2 % (0.0-12.0); Neutrophils % (auto) 60.5 % (37.0-80.0); Nucleated Red Blood Cells % 0.1 %; Platelet Count (auto) 101 10^3/uL (140-450); Red Blood Cells 3.14 10^6/uL (4.0-5.20); Red Cell Distribution Width 16.4 % (11.8-14.3); White Blood Cell 3.2 10^3/uL (4.4-10.8)
[2020-05-02 03:48] LABS: Calcium 6.9 mg/dL (8.5-10.1); Potassium 3.8 mmol/L (3.5-5.1)
[2020-05-02 03:59] LABS: BUN/Creatinine Ratio 7.1
[2020-05-02 04:00] VITALS: BP 172/65
[2020-05-02] MEDS: GABAPENTIN 100 MG CAP PO SCH ×3 (06:36→22:22)
[2020-05-02] MEDS: SUCRALFATE 1 GM TAB PO SCH ×5 (06:36→22:21)
[2020-05-02] MEDS: hydrALAZINE HCL 25 MG TAB PO SCH ×3 (06:36→22:00)
[2020-05-02 07:30] VITALS: BP 162/57
--- NOTE | 2020-05-02 07:30 | NUR ---
Opening Shift Note Assumed care of patient, awake and alert. No S/S of distress/SOB or pain. See interventions for complete assessment. Bed locked on low position, side rails up x2, bed alarms on at all times, call wilburn within reach, instructed on POC and to call for assist PRN, will continue to monitor for changes Q1hr and PRN.
[2020-05-02] MEDS: ENSURE CLEAR Mixed Berry 8oz Carton PO SCH ×3 (08:00→17:39)
[2020-05-02] MEDS: CALCIUM ACETATE 667 MG CAP PO SCH ×3 (08:56→17:38)
--- NOTE | 2020-05-02 09:45 | NUR ---
Patient out of bed to bedside chair with Pranay PT after ambulating using walker. Fall precautions in place. Patient tolerated well.
--- NOTE | 2020-05-02 09:58 | NUR ---
Dr Camargo at bedside, updated on patient's status. Informed of LT arm swelling but positive for AV fistula thrill. Patient seen and examined. Will carry out new orders.
[2020-05-02] MEDS: PANTOPRAZOLE 40 MG/10 ML VIAL INJ IV SCH ×2 (10:02→22:19)
[2020-05-02] MEDS: FUROSEMIDE 40 MG TAB PO SCH (10:05)
[2020-05-02] MEDS: NIFEdipine ER 30 MG TAB PO SCH (10:06)
[2020-05-02] MEDS: levETIRAcetam 500 MG TAB PO SCH ×2 (10:06→22:21)
[2020-05-02] MEDS: DULoxetine HCL 30 MG CAP PO SCH (10:06)
--- NOTE | 2020-05-02 10:30 | NUR ---
Dr Hadley at bedside, updated on patient's status. Patient seen and examined. Plan to transfer patient to Telemetry floor. Will carry out new orders.
--- NOTE | 2020-05-02 11:07 | NUR ---
Patient back to bed from bedside chair with Pranay ARCOS Fall precautions in place. Patient tolerated well.
--- NOTE | 2020-05-02 11:12 | NUR ---
Dr Bowman at bedside, updated on patient's status. Patient seen and examined. Will carry out new orders.
[2020-05-02 11:30] VITALS: BP 144/43
--- NOTE | 2020-05-02 12:48 | NUR ---
Nutrition Assessment Notes Please refer to link for full assessment notes. Est Energy needs: 6065-4951 kcals (23-25 kcal/kgBW) Est Protein needs: 85-93 gms/day (1.1-1.2 gm/kgBW) Will continue to monitor and reassess prn. Addendum: 05/02/20 at [address] Amended: Links added.
[2020-05-02 15:30] VITALS: BP 154/59
--- NOTE | 2020-05-02 15:40 | NUR ---
Upper extremity US still pending.
--- NOTE | 2020-05-02 18:21 | NUR ---
Called ultrasound regarding patient's Extremity Arterial Study, spoke to Dena. Awaiting report.
--- NOTE | 2020-05-02 19:00 | NUR ---
Opening Shift Note Assumed care of patient, awake and alert. No S/S of distress/SOB or pain. Instructed on POC and to call for assist PRN, will continue to monitor for changes Q1hr and PRN.
--- NOTE | 2020-05-02 20:30 | NUR ---
Report given to CHAPIN Valle.
--- NOTE | 2020-05-02 20:45 | NUR ---
Patient transferred to [facility]. Leonard RN at patient bedside with other RN to take patient. Patient tolerated transfer well with no adverse event.
--- NOTE | 2020-05-02 20:50 | NUR ---
[facility] pt transferred to floor JADEJAQUELINE CHUN transfered to [facility] via kristyn on equipment monitor phototypesetting 76 all leads in position. All patient personal belongings transfered with patient to receiving floor. Assumed care of patient, awake and alert A/O x 4. No S/S of distress/SOB complain of pain. Safety measures in place bed lowered and locked side rails up x 2 call light and beside table within reach. Instructed on POC and to call for assist PRN, will continue to monitor for changes Q1hr and PRN.
[2020-05-02 22:00] VITALS: BP 100/75
[2020-05-02] MEDS: ATORVASTATIN 20 MG TAB PO SCH (22:21)
[2020-05-02] MEDS: QUEtiapine FUMARATE 25 MG TAB PO SCH (22:22)
[2020-05-03] MEDS: ONDANSETRON HCL 4 MG/2 ML VIAL IV PRN (02:41)
[2020-05-03 05:00] VITALS: BP 109/55
[2020-05-03] MEDS: GABAPENTIN 100 MG CAP PO SCH ×3 (06:00→23:00)
[2020-05-03] MEDS: hydrALAZINE HCL 25 MG TAB PO SCH ×3 (06:00→22:00)
[2020-05-03] MEDS: SUCRALFATE 1 GM TAB PO SCH ×4 (06:00→22:59)
[2020-05-03 06:50] LABS: Potassium 3.8 mmol/L (3.5-5.1)
[2020-05-03 07:07] LABS: BUN/Creatinine Ratio 6.5; Calcium 7.3 mg/dL (8.5-10.1)
[2020-05-03 07:31] LABS: Basophils # (auto) 0 10 ^3/uL (0-0.2); Basophils % (auto) 0.7 % (0.0-2.0); Eosinophils # (auto) 0 10 ^3/uL (0-0.8); Eosinophils % (auto) 0.1 % (0.0-7.0); Lymphocytes # (auto) 0.8 10 ^3/uL (0.4-5.4); Lymphocytes % (auto) 19.4 % (10.0-50.0); Mean Corpuscular Hemoglobin 31.5 pg (28.0-32.0); Mean Corpuscular Hgb Conc. 34.5 g/dL (32.0-36.0); Mean Corpuscular Volume 91.3 fL (80.0-100.0); Monocytes # (auto) 0.3 10 ^3/uL (0-1.3); Monocytes % (auto) 8.4 % (0.0-12.0); Neutrophils # (auto) 2.9 10 ^3/uL (1.6-8.6); Neutrophils % (auto) 71.4 % (37.0-80.0); Nucleated Red Blood Cells % 0.1 %; Platelet Count (auto) 107 10^3/uL (140-450); Red Blood Cells 3.17 10^6/uL (4.0-5.20); Red Cell Distribution Width 16.3 % (11.8-14.3); White Blood Cell 4.1 10^3/uL (4.4-10.8)
--- NOTE | 2020-05-03 07:35 | NUR ---
Opening Note Received report from material handler 2nd shift RN. Patient is resting in bed with eyes closed, no signs or symptoms of distress noted at this time. Patient is on room air, respirations even and unlabored. Bed in low and locked position, call light within reach. Will continue to monitor Q1 hour and PRN.
[2020-05-03 09:00] VITALS: BP 136/60
[2020-05-03] MEDS: PANTOPRAZOLE 40 MG/10 ML VIAL INJ IV SCH ×2 (09:20→22:59)
[2020-05-03] MEDS: levETIRAcetam 500 MG TAB PO SCH ×2 (09:20→22:59)
[2020-05-03] MEDS: FUROSEMIDE 40 MG TAB PO SCH (09:21)
[2020-05-03] MEDS: NIFEdipine ER 30 MG TAB PO SCH (09:21)
[2020-05-03] MEDS: CALCIUM ACETATE 667 MG CAP PO SCH ×3 (09:21→17:43)
[2020-05-03] MEDS: DULoxetine HCL 30 MG CAP PO SCH (09:21)
[2020-05-03] MEDS: ENSURE CLEAR Mixed Berry 8oz Carton PO SCH ×3 (09:22→17:43)
--- NOTE | 2020-05-03 09:30 | NUR ---
Dr. Bowman at bedside MD at bedside discussing plan of care with patient, no new orders received. Will continue to monitor Q1 hour and PRN.
[2020-05-03] MEDS: MORPHINE SULF INJ 2 MG/ML SYRINGE 1ML IV PRN ×4 (10:05→20:33)
--- NOTE | 2020-05-03 10:30 | NUR ---
Physical Therapy at bedside PT at bedside working with patient. Will continue to monitor.
--- NOTE | 2020-05-03 10:35 | NUR ---
Pain Patient complains of generalized body pain 10/10 and is requesting morphine. Will medicare per orders. Will continue to monitor Q1 hour and PRN.
--- NOTE | 2020-05-03 10:55 | NUR ---
Pain reassessment Patient states pain is 6/10, no signs or symptoms of distress noted at this time. Patient resting comfortably in bed. Will continue to monitor Q1 hour and PRN.
--- NOTE | 2020-05-03 11:30 | NUR ---
Dialysis nurse at bedside
--- NOTE | 2020-05-03 12:29 | NUR ---
Pt is an alert and oriented but fatigued and sleepy female. Pt resides with her family and her sister, nette, is her primary caregiver. Pt needs assistance and uses a fww and w/c. Pt also receives dialysis at [facility] and is transported by [facility] transportation. Pt also has home health for wound care and Physical therapy from [facility]. No further social service issues or concerns. Will continue to monitor and provide intervention as appropriate. Addendum: 05/03/20 at 1232 by FEI MCCOY Amended: Links added.
[2020-05-03 13:00] VITALS: BP 144/68
--- NOTE | 2020-05-03 14:50 | NUR ---
Dialysis complete Per business area manager 4L removed. Patient tolerated well. Will continue to monitor Q1 hour and PRN.
--- NOTE | 2020-05-03 15:15 | NUR ---
Pain Patient complains of pain 10/10 and is requesting pain medications. Will medicate per orders. Will continue to monitor Q1 hour and PRN.
--- NOTE | 2020-05-03 15:45 | NUR ---
Pain reassessment Patient resting in bed with eyes closed, no signs or symptoms of distress noted at this time, respirations even and unlabored. Will continue to monitor Q1 hour and PRN.
[2020-05-03 17:16] VITALS: BP 138/65
[2020-05-03 18:00] VITALS: BP 101/56
--- NOTE | 2020-05-03 19:19 | NUR ---
Closing Note Report given to overnight caregiver RN. No signs or symptoms of distress noted at this time.
--- NOTE | 2020-05-03 19:40 | NUR ---
OPENING SHIFT NOTE Assumed care of patient who is A&O x4. Currently on RA with no s/s of distress. Reports 10/10 pain in neck and hips. Pain management options discussed. Midline in right upper arm intact and patent. Flushed with 10ml NS. Fistula present in left upper arm. Edema noted distal to fistula. Thrill and bruit present. Dressings to right AC and sacrum are CDI. POC discussed and patient verbalizes understanding. Bed is in low locked position with side rails up x2. Call light is within reach and patient encouraged to call for assistance when needed. Will continue to monitor for changes PRN.
[2020-05-03 22:00] VITALS: BP 101/56
[2020-05-03] MEDS: ATORVASTATIN 20 MG TAB PO SCH (22:59)
[2020-05-03] MEDS: QUEtiapine FUMARATE 25 MG TAB PO SCH (23:00)
[2020-05-04 05:00] VITALS: BP 119/63
[2020-05-04] MEDS: hydrALAZINE HCL 25 MG TAB PO SCH ×2 (05:52→14:00)
[2020-05-04] MEDS: GABAPENTIN 100 MG CAP PO SCH ×2 (05:52→14:00)
[2020-05-04] MEDS: SUCRALFATE 1 GM TAB PO SCH ×3 (05:53→17:00)
[2020-05-04] MEDS: MORPHINE SULF INJ 2 MG/ML SYRINGE 1ML IV PRN ×2 (06:05→10:09)
[2020-05-04 06:35] LABS: Hematocrit 28.4 % (36.0-46.0); Hemoglobin 9.6 g/dL (12.2-16.2)
--- NOTE | 2020-05-04 07:30 | NUR ---
Opening Shift Note Assuming care of patient at this time. Patient is currently resting with eyes closed. Respirations are even and unlabored. No distress noted. Patient shows no signs or symptoms of distress or shortness of breath. Bed is locked and lowered with side rails up x2. Bed is locked and lowered with side rails up x2. Instructed patient on the plan of care for today and to call for assistance as needed. Will continue to round hourly and as needed.
[2020-05-04] MEDS: CALCIUM ACETATE 667 MG CAP PO SCH ×3 (08:45→18:00)
[2020-05-04] MEDS: ENSURE CLEAR Mixed Berry 8oz Carton PO SCH ×3 (08:45→18:00)
--- NOTE | 2020-05-04 08:45 | NUR ---
Morning Medication Patient still resting with eyes closed when this RN entered room. Opened patient's breakfast so that patient can take morning medication with pill. Patient states that she is now ready to eat breakfast.
[2020-05-04 09:00] VITALS: BP 117/73
--- NOTE | 2020-05-04 09:00 | NUR ---
Bedside Commode Patient asked for bedpan to urinate. Asked patient if she wanted to attempt to use bedside commode due to her increase in strength. Patient states that she will try. Assisted patient to bedside commode with minimal assistance. Patient tolerated well. Will leave bedside commode at bedside so that patient can transition from bed cardenas use to bedside commode.
[2020-05-04] MEDS: PANTOPRAZOLE 40 MG/10 ML VIAL INJ IV SCH (10:09)
[2020-05-04] MEDS: DULoxetine HCL 30 MG CAP PO SCH (10:09)
[2020-05-04] MEDS: levETIRAcetam 500 MG TAB PO SCH (10:09)
[2020-05-04] MEDS: FUROSEMIDE 40 MG TAB PO SCH (10:10)
[2020-05-04] MEDS: NIFEdipine ER 30 MG TAB PO SCH (10:10)
--- NOTE | 2020-05-04 11:05 | NUR ---
Call to Radiology Call to radiology at this time. Spoke with radiologist regarding upcoming procedure. Radiologist states that the interventional radiologist that would do the procedure is not in until Saturday, next week. Will notify MD regarding change in schedule.
--- NOTE | 2020-05-04 11:43 | NUR ---
Nutrition Followup Note Wt 70.1 KG Pt was with MD at bedside for procedure. per records pt had HD yesterday 05/03. pt is currently on cardiac renal std diet with inadequate Po of 25% x 6 per RN doc. Est Energy needs BW 81 [id number] kcals (25-27 kcal/kgBW), Est Protein needs: 97-1053 gms/day (1.2-1.3 gm/kgBW R/t HD). Will continue to monitor and reassess prn. reassessed Labs: BUN 43 H CREAT 6.66 H CA 7.3 L BM: Pt with 1 BM today per Rn note Skin: BS 12 low risk, full details in point of care specialist note PES: 1) Increased nutrient needs aeb pt is on a Clear Liquid diet r/t pt is with a restricted diet 2) Altered nutrition related lab values aeb elev RFTs, Low GFR, hypoglycemia, severe hypoalbuminemia r/t current/chronic medical condition Comments Will continue to monitor PO status, skin status, pertinent labs and weight trends. Will f/u in 3-5 days. 1) consider CCHO 60 gm along with current diet. 2) consider nephro carb steady as pt on HD. 3) refer to CDE oN DC. 4) continue current plan of care
--- NOTE | 2020-05-04 12:50 | NUR ---
Mary Jo at station Spoke with Dr. Camargo. Made aware that fistulogram would not take place until saturday of next week. Mary Jo states that patient is clear from nephro standpoint and he can arrange for patient to have it done outpatient. Will notify .
[2020-05-04 13:00] VITALS: BP 141/57
--- NOTE | 2020-05-04 13:00 | NUR ---
Dr. Shaikh Dr. Hadley aware that patient will not be able to have radiology procedure until next Saturday. Notified Dr. Hadley that Dr. Camargo has cleared patient for discharge. Dr. Hadley will discharge patient
[2020-05-04] MEDS ORDERED: PANT40TA2 PO (13:24)
[2020-05-04 17:00] VITALS: BP 127/70
[2020-05-04 17:35] VITALS: BP 141/57
[2020-05-04 17:49] VITALS: BP 141/57
--- NOTE | 2020-05-04 18:45 | NUR ---
Discharge Discharge instructions given as ordered. Encourage to follow up with PMD as instructed. All questions and concerns addressed. Patient verbalized understanding. Medication reconciliation form completed and copy given to patient. IV removed with catheter intact, pressure dressing applied. Telemetry unit returned to ICU. Patient taken to vehicle via wheelchair with all personal belongings, accompanied by staff.front loader residential driver in [employer]. No distress noted at time of departure.
== END 2020-05-04 18:40 | disposition home health service (06) | DRG 393 ==
LOC: EDUNIT# 13:53 → EDBD 13:53 → ER 13:53 → TELE 13:54 → DOU IN ICU 23:42 → TELE-WESTW 05-02 20:50
PROVIDERS: ADMIT Hospitalist; ATTEND Internal Medicine
PROC: 30233N1 Transfusion of Nonautologous Red Blood Cells into Peripheral Vein, Percutaneous Approach (ICD-10-PCS; principal; 2020-04-28)
PROC: 5A1D70Z Performance of Urinary Filtration, Intermittent, Less than 6 Hours Per Day (ICD-10-PCS; 2020-04-30)
PROC: 0W3P8ZZ Control Bleeding in Gastrointestinal Tract, Via Natural or Artificial Opening Endoscopic (ICD-10-PCS; 2020-05-01)
PROC: 5A1D70Z Performance of Urinary Filtration, Intermittent, Less than 6 Hours Per Day (ICD-10-PCS; 2020-05-03)
DX: K63.3 Ulcer of intestine (principal); N18.6 End stage renal disease; G93.41 Metabolic encephalopathy; I13.2 Hypertensive heart and chronic kidney disease with heart failure and with stage 5 chronic kidney disease, or end stage renal disease; D68.4 Acquired coagulation factor deficiency; I50.42 Chronic combined systolic (congestive) and diastolic (congestive) heart failure; E44.0 Moderate protein-calorie malnutrition; D62 Acute posthemorrhagic anemia; E11.22 Type 2 diabetes mellitus with diabetic chronic kidney disease; M32.9 Systemic lupus erythematosus, unspecified; E11.21 Type 2 diabetes mellitus with diabetic nephropathy; E11.40 Type 2 diabetes mellitus with diabetic neuropathy, unspecified; I25.10 Atherosclerotic heart disease of native coronary artery without angina pectoris; F32.9 Major depressive disorder, single episode, unspecified; F41.9 Anxiety disorder, unspecified; D63.8 Anemia in other chronic diseases classified elsewhere; I25.5 Ischemic cardiomyopathy; M06.9 Rheumatoid arthritis, unspecified; E66.01 Morbid (severe) obesity due to excess calories; G40.909 Epilepsy, unspecified, not intractable, without status epilepticus; K21.9 Gastro-esophageal reflux disease without esophagitis; E78.5 Hyperlipidemia, unspecified; Z86.73 Personal history of transient ischemic attack (TIA), and cerebral infarction without residual deficits; Z79.01 Long term (current) use of anticoagulants; Z79.82 Long term (current) use of aspirin; Z99.2 Dependence on renal dialysis; Z79.4 Long term (current) use of insulin; Z68.27 Body mass index [BMI] 27.0-27.9, adult; Z88.5 Allergy status to narcotic agent; Z88.8 Allergy status to other drugs, medicaments and biological substances; Z95.1 Presence of aortocoronary bypass graft; I25.2 Old myocardial infarction; Z79.899 Other long term (current) drug therapy; Z82.49 Family history of ischemic heart disease and other diseases of the circulatory system; Z90.710 Acquired absence of both cervix and uterus; Z83.3 Family history of diabetes mellitus; Z82.5 Family history of asthma and other chronic lower respiratory diseases; Z80.7 Family history of other malignant neoplasms of lymphoid, hematopoietic and related tissues; Z82.3 Family history of stroke; Z91.15 Patient's noncompliance with renal dialysis
CPT/HCPCS: 36415; 36430; 43255; 70450; 71045; 74176; 80048; 80053; 80061; 82140; 82728; 82962; 83036; 83540; 83550; 83735; 83880; 84443; 84484; 85014; 85018; 85025; 85610; 85730; 86850; 86900; 86901; 86920; 87040; 87081; 90935; 93005; 96365; 96375; C9113; G0378; J0885; J2250; J2405

== ENCOUNTER 2020-05-11 14:54 | Inpatient (IN) | payer OTHER, MEDICAID ==
[~2020-05-11] VITALS: Ht 172.7 cm; Wt 85.3 kg
[~2020-05-11 14:54] MED LIST changes: +ATOR1TAB PO; -ATOR20TA PO; -DULO30CA84 PO; +DULO60CA90 PO; +LORA0.5T19 PO; -LORA0.5T20 PO; +NIFE1TAB30 PO; +PANT40TA2 PO
[2020-05-11] MEDS ORDERED: SODIUM CHLORIDE 0.9% 500 ML IVB ONE (19:00)
[2020-05-11 19:02] LABS: Basophils # (auto) 0 10 ^3/uL (0-0.2); Basophils % (auto) 0.7 % (0.0-2.0); Eosinophils # (auto) 0.1 10 ^3/uL (0-0.8); Eosinophils % (auto) 1.7 % (0.0-7.0); Hematocrit 29.5 % (36.0-46.0); Hemoglobin 9.7 g/dL (12.2-16.2); Lymphocytes # (auto) 0.9 10 ^3/uL (0.4-5.4); Lymphocytes % (auto) 15.6 % (10.0-50.0); Mean Corpuscular Hemoglobin 30.8 pg (28.0-32.0); Mean Corpuscular Volume 93.3 fL (80.0-100.0); Monocytes # (auto) 0.5 10 ^3/uL (0-1.3); Monocytes % (auto) 9.3 % (0.0-12.0); Neutrophils # (auto) 4.3 10 ^3/uL (1.6-8.6); Neutrophils % (auto) 72.7 % (37.0-80.0); Nucleated Red Blood Cells % 0.1 %; Platelet Count (auto) 213 10^3/uL (140-450); Red Blood Cells 3.16 10^6/uL (4.0-5.20); White Blood Cell 5.9 10^3/uL (4.4-10.8)
[2020-05-11 19:19] LABS: Albumin 2.5 g/dL (3.4-5.0); Calcium 8.4 mg/dL (8.5-10.1); Potassium 3.7 mmol/L (3.5-5.1)
[2020-05-11 19:19] LABS: Urine Bacteria NONE SEEN /hpf (None Seen); Urine Blood 3+ /uL (Negative); Urine WBC 2253 /hpf (0 - 5); Urine WBC Clumps PRESENT /hpf (None Seen)
[2020-05-11 19:28] LABS: BUN/Creatinine Ratio 6.8; Bilirubin, Total 0.4 mg/dL (0.2-1.0); Total Protein 5.9 g/dL (6.4-8.2)
[2020-05-11 19:39] LABS: Urine Specific Gravity 1.015 (1.001-1.035)
[2020-05-11 19:50] LABS: INR 0.99 (0.9-1.15); Partial Thromboplastin Time 25.7 sec (23.0-31.2)
[2020-05-11] MEDS ORDERED: ONDANSETRON HCL 4 MG/2 ML VIAL IV ONE (20:15)
[2020-05-11] MEDS ORDERED: MORPHINE SULF INJ 2 MG/ML SYRINGE 1ML IV ONE (20:15)
[2020-05-11] MEDS ORDERED: ONDANSETRON HCL 4 MG/2 ML VIAL IV PRN (21:00)
[2020-05-11] MEDS ORDERED: ACETAMINOPHEN 325 MG TAB PO PRN (21:00)
[2020-05-11] MEDS ORDERED: NITROGLYCERIN 0.4 MG SL TAB SL PRN (21:00)
[2020-05-11] MEDS ORDERED: MORPHINE SULF INJ 2 MG/ML SYRINGE 1ML IV PRN (21:00)
[2020-05-11 22:30] VITALS: BP 162/72
--- NOTE | 2020-05-11 22:30 | NUR ---
Patient Brought to Unit Via Bed from ER Patient AOx4 with no s/s of distress or SOB. Bed locked in lowest position and call light is within reach. POC discussed with patient, and patient verbally agreed to understanding. Will continue to monitor.
[2020-05-11] MEDS: HYDROcodone-ACET 5/325MG TAB PO PRN (23:24)
--- NOTE | 2020-05-12 | NUR ---
Spoke with Patient's Sister According to patient, her sister is her caregiver services home and has a list of all medications she is currently on. Spoke with patient's sister Sandi and did a medication reconciliation over phone.
[2020-05-12 05:00] VITALS: BP 178/78
[2020-05-12] MEDS: HYDROcodone-ACET 5/325MG TAB PO PRN (05:50)
--- NOTE | 2020-05-12 08:38 | NUR ---
Lynsey PADILLA AT BEDSIDE ROUNDING ON PATIENT.
[2020-05-12 08:41] VITALS: BP 183/70
[2020-05-12] MEDS ORDERED: levoFLOXacin 500 MG TAB PO ONE (09:00)
[2020-05-12] MEDS ORDERED: GOLYTELY 4L KIT PO ONE (09:45)
[2020-05-12 09:46] LABS: Basophils # (auto) 0 10 ^3/uL (0-0.2); Basophils % (auto) 0.9 % (0.0-2.0); Eosinophils # (auto) 0.1 10 ^3/uL (0-0.8); Eosinophils % (auto) 2.2 % (0.0-7.0); Hematocrit 24.7 % (36.0-46.0); Hemoglobin 8.7 g/dL (12.2-16.2); Lymphocytes % (auto) 24.3 % (10.0-50.0); Mean Corpuscular Hemoglobin 32.9 pg (28.0-32.0); Mean Corpuscular Hgb Conc. 35.3 g/dL (32.0-36.0); Mean Corpuscular Volume 93.2 fL (80.0-100.0); Monocytes # (auto) 0.5 10 ^3/uL (0-1.3); Monocytes % (auto) 12.1 % (0.0-12.0); Neutrophils # (auto) 2.5 10 ^3/uL (1.6-8.6); Neutrophils % (auto) 60.5 % (37.0-80.0); Nucleated Red Blood Cells % 0.1 %; Platelet Count (auto) 184 10^3/uL (140-450); Red Blood Cells 2.65 10^6/uL (4.0-5.20); Red Cell Distribution Width 17.7 % (11.8-14.3); White Blood Cell 4.1 10^3/uL (4.4-10.8)
[2020-05-12] MEDS ORDERED: QUET100T46 PO (09:47)
--- NOTE | 2020-05-12 09:49 | NUR ---
CALLED AND SPOKE WITH [facility] TO VERIFY HOME MEDICATION DOSAGES. WILL UPDATE Maximiliano.Francisca PADILLA AND MED RECONCILIATION.
[2020-05-12] MEDS: NIFEdipine ER 30 MG TAB PO SCH ×2 (10:00→10:25)
[2020-05-12 10:05] LABS: Calcium 8.3 mg/dL (8.5-10.1); Potassium 3.7 mmol/L (3.5-5.1)
[2020-05-12 10:12] LABS: Albumin 2.2 g/dL (3.4-5.0); BUN/Creatinine Ratio 6.7; Bilirubin, Total 0.4 mg/dL (0.2-1.0); Magnesium 2.4 mg/dL (1.6-2.6); Total Protein 5.2 g/dL (6.4-8.2)
[2020-05-12] MEDS: hydrALAZINE HCL 25 MG TAB PO SCH ×3 (10:24→21:43)
[2020-05-12] MEDS: cefTRIAXone 1GM/50ML D5W 50 ML IV SCH (10:26)
[2020-05-12] MEDS: LORazepam 0.5 MG TAB PO SCH ×2 (10:26→21:43)
[2020-05-12] MEDS: levETIRAcetam 500 MG TAB PO SCH ×2 (10:26→21:44)
[2020-05-12] MEDS: PANTOPRAZOLE 40 MG TAB PO SCH ×2 (10:27→21:44)
[2020-05-12] MEDS: FUROSEMIDE 20 MG TAB PO SCH (10:27)
[2020-05-12] MEDS: hydrOXYchloroQUINE SULFATE 200 MG TAB PO SCH ×2 (10:27→21:44)
--- NOTE | 2020-05-12 10:46 | NUR ---
COVID SWAB COLLECTED AND WALKED UP TO LAB BY CHAPIN ESTRADA.
[2020-05-12] MEDS ORDERED: DEXTROSE (50%) 50ML SYRG IV PRN (11:15)
--- NOTE | 2020-05-12 11:20 | NUR ---
PATIENT FOUND ON FLOOR. PATIENT STATES SHE SLIPPED AND HIT HER HEAD. PATIENT VITALS AT TIME STABLE. NO NOTED BRUISES OR BUMPS NOTED TO PATIENTS SKIN AROUND SCALP AREA OR REST OF BODY INFORMED Lynsey PADILLA. RECEIVED NEW ORDER FOR HEAD CT.
[2020-05-12] MEDS: InsuLIN REG 1unit/0.01ml Soln (100units/ml) SC SCH ×3 (11:30→21:45)
[2020-05-12] MEDS: ACCU-CHEK COMFORT CURVE STRIP VI SCH ×3 (11:30→21:45)
[2020-05-12] MEDS: FERROUS SULFATE 325 MG TAB PO SCH ×2 (12:00→18:30)
[2020-05-12] MEDS ORDERED: METOPROLOL TARTRATE 1MG/1ML-5ML VIAL IV PRN (12:00)
[2020-05-12] MEDS: CALCIUM ACETATE 667 MG CAP PO SCH ×2 (12:43→18:30)
[2020-05-12 13:00] VITALS: BP 187/78
[2020-05-12] MEDS: GABAPENTIN 100 MG CAP PO SCH ×2 (13:44→21:44)
[2020-05-12 17:00] VITALS: BP 144/76
--- NOTE | 2020-05-12 19:15 | NUR ---
ASSUMED CARE, PT. AWAKE, ASSISTED PT. TO BSC THEN BACK TO BED, NO C/O PAIN, ADVISED PT. NPO AFTER MN, NO SOB.
[2020-05-12 22:00] VITALS: BP_SYST 150; BP_SYST 159; BP_DIAS 64; BP_DIAS 65
[2020-05-12] MEDS ORDERED: ATORVASTATIN 20 MG TAB PO SCH (22:00)
[2020-05-12] MEDS ORDERED: QUEtiapine FUMARATE 25 MG TAB PO SCH (22:00)
[2020-05-12] MEDS ORDERED: PARoxetine 20 MG TAB PO SCH (22:00)
[2020-05-12] MEDS ORDERED: MORPHINE SULF INJ 2 MG/ML SYRINGE 1ML IV PRN (22:15)
[2020-05-12] MEDS ORDERED: HYDROcodone-ACET 5/325MG TAB PO PRN (22:45)
[2020-05-13 05:00] VITALS: BP_SYST 147; BP_SYST 155; BP_DIAS 56
[2020-05-13] MEDS: hydrALAZINE HCL 25 MG TAB PO SCH ×2 (05:42→14:00)
[2020-05-13] MEDS: GABAPENTIN 100 MG CAP PO SCH ×2 (05:43→14:00)
[2020-05-13] MEDS ORDERED: GOLYTELY 4L KIT PO ONE (06:00)
[2020-05-13] MEDS: InsuLIN REG 1unit/0.01ml Soln (100units/ml) SC SCH ×2 (06:10→11:25)
[2020-05-13] MEDS: ACCU-CHEK COMFORT CURVE STRIP VI SCH ×2 (06:10→11:24)
[2020-05-13] MEDS ORDERED: SODIUM CHL 0.9% 1000 ML BAG XX ONE (07:00)
[2020-05-13 08:04] LABS: Basophils # (auto) 0 10 ^3/uL (0-0.2); Eosinophils # (auto) 0.1 10 ^3/uL (0-0.8); Eosinophils % (auto) 2.6 % (0.0-7.0); Hematocrit 25.8 % (36.0-46.0); Hemoglobin 8.6 g/dL (12.2-16.2); Lymphocytes # (auto) 0.8 10 ^3/uL (0.4-5.4); Lymphocytes % (auto) 19.2 % (10.0-50.0); Mean Corpuscular Hemoglobin 30.5 pg (28.0-32.0); Mean Corpuscular Hgb Conc. 33.2 g/dL (32.0-36.0); Mean Corpuscular Volume 92.1 fL (80.0-100.0); Monocytes # (auto) 0.5 10 ^3/uL (0-1.3); Monocytes % (auto) 11.8 % (0.0-12.0); Neutrophils # (auto) 2.6 10 ^3/uL (1.6-8.6); Neutrophils % (auto) 65.4 % (37.0-80.0); Nucleated Red Blood Cells % 0.1 %; Platelet Count (auto) 179 10^3/uL (140-450); Red Blood Cells 2.81 10^6/uL (4.0-5.20); Red Cell Distribution Width 17.9 % (11.8-14.3)
[2020-05-13] MEDS ORDERED: SODIUM CHLORIDE LOCK 10 ML ONE (08:18)
[2020-05-13] MEDS ORDERED: diphenhdrAMINE HCL 50 MG/1 ML VL ONE (08:19)
[2020-05-13] MEDS ORDERED: LIDOCAINE VISCOUS 2% 15ML UD ONE (08:19)
[2020-05-13 08:23] LABS: Potassium 3.6 mmol/L (3.5-5.1)
[2020-05-13] MEDS: CALCIUM ACETATE 667 MG CAP PO SCH ×2 (08:27→11:56)
[2020-05-13] MEDS: FERROUS SULFATE 325 MG TAB PO SCH ×2 (08:27→11:56)
[2020-05-13 08:30] LABS: Albumin 2.1 g/dL (3.4-5.0); BUN/Creatinine Ratio 5.9; Bilirubin, Total 0.5 mg/dL (0.2-1.0); Calcium 8.5 mg/dL (8.5-10.1); Total Protein 5.3 g/dL (6.4-8.2)
[2020-05-13 09:00] VITALS: BP 169/58
--- NOTE | 2020-05-13 09:16 | NUR ---
Patient taken down for EGD and Colonoscopy
[2020-05-13] MEDS: fentaNYL CITRATE 100 MCG/2 ML VL ONE ×2 (09:22→09:25)
[2020-05-13] MEDS: MIDAZOLAM HCL 5 MG/ML-1ML VIAL ONE ×3 (09:22→09:32)
--- NOTE | 2020-05-13 11:05 | NUR ---
Low blood glucose, patient given x2 orange juice.
--- NOTE | 2020-05-13 11:20 | NUR ---
Blood glucose rechecked 65. patient eating a sandwich.
[2020-05-13] MEDS: hydrOXYchloroQUINE SULFATE 200 MG TAB PO SCH (11:22)
[2020-05-13] MEDS: FUROSEMIDE 20 MG TAB PO SCH (11:22)
[2020-05-13] MEDS: cefTRIAXone 1GM/50ML D5W 50 ML IV SCH (11:22)
[2020-05-13] MEDS: LORazepam 0.5 MG TAB PO SCH (11:22)
[2020-05-13] MEDS: levETIRAcetam 500 MG TAB PO SCH (11:22)
[2020-05-13] MEDS: PANTOPRAZOLE 40 MG TAB PO SCH (11:23)
[2020-05-13] MEDS: NIFEdipine ER 30 MG TAB PO SCH (11:23)
[2020-05-13 13:00] VITALS: BP 155/92
[2020-05-13] MEDS ORDERED: LEVO500T21 PO (14:25)
[2020-05-13 15:23] VITALS: BP 144/76
--- NOTE | 2020-05-13 16:55 | NUR ---
PATIENT TAKEN OUT FOR DC ACCOMPANIED BY MUSICAL INSTRUMENT MAKER. IV REMOVED WITH CATHETER INTACT. TELE MONITOR RETURNED TO MONITOR TECHS
[2020-05-13 16:59] VITALS: BP 39/79
[2020-05-13] MEDS ORDERED: EPOETIN ALFA 10,000 UNIT/1 ML VIAL SC ONE (21:00)
== END 2020-05-13 16:35 | disposition home or self-care (01) | DRG 689 ==
LOC: EDBD 14:54 → ER 14:54 → OVERFLOW 14:55 → WEST WING 22:30 → TELE-WESTW 05-13 06:56
PROVIDERS: ADMIT Internal Medicine; ATTEND Hospitalist
PROC: 5A1D70Z Performance of Urinary Filtration, Intermittent, Less than 6 Hours Per Day (ICD-10-PCS; principal; 2020-05-12)
PROC: 0DB68ZX Excision of Stomach, Via Natural or Artificial Opening Endoscopic, Diagnostic (ICD-10-PCS; 2020-05-12)
PROC: 0DJD8ZZ Inspection of Lower Intestinal Tract, Via Natural or Artificial Opening Endoscopic (ICD-10-PCS; 2020-05-12)
DX: N30.01 Acute cystitis with hematuria (principal); N18.6 End stage renal disease; I13.2 Hypertensive heart and chronic kidney disease with heart failure and with stage 5 chronic kidney disease, or end stage renal disease; I50.30 Unspecified diastolic (congestive) heart failure; K63.3 Ulcer of intestine; D63.1 Anemia in chronic kidney disease; G89.4 Chronic pain syndrome; Z20.828 Contact with and (suspected) exposure to other viral communicable diseases; G40.909 Epilepsy, unspecified, not intractable, without status epilepticus; K29.70 Gastritis, unspecified, without bleeding; I25.10 Atherosclerotic heart disease of native coronary artery without angina pectoris; E11.22 Type 2 diabetes mellitus with diabetic chronic kidney disease; E78.5 Hyperlipidemia, unspecified; F17.210 Nicotine dependence, cigarettes, uncomplicated; F31.9 Bipolar disorder, unspecified; F41.9 Anxiety disorder, unspecified; Z99.2 Dependence on renal dialysis; K64.4 Residual hemorrhoidal skin tags; M54.5 Low back pain; Z80.7 Family history of other malignant neoplasms of lymphoid, hematopoietic and related tissues; Z82.49 Family history of ischemic heart disease and other diseases of the circulatory system; Z82.5 Family history of asthma and other chronic lower respiratory diseases; Z83.3 Family history of diabetes mellitus; Z85.72 Personal history of non-Hodgkin lymphomas; Z86.73 Personal history of transient ischemic attack (TIA), and cerebral infarction without residual deficits; Z90.710 Acquired absence of both cervix and uterus; Z82.3 Family history of stroke
CPT/HCPCS: 36415; 43239; 45378; 70450; 71045; 74176; 80053; 81001; 82962; 83605; 83735; 85025; 85610; 85730; 87081; 87086; 90935; 93005; 96375; G0378; J0696; J0885; J1642; J2250; J2405

== ENCOUNTER 2020-05-26 15:15 | Inpatient (IN) | payer OTHER, MEDICAID ==
[~2020-05-26] VITALS: Ht 162.6 cm; Wt 72.9 kg
[~2020-05-26 15:15] MED LIST changes: +LEVO500T21 PO; -PANT40TA2 PO; -PAR20T PO; +QUET100T46 PO; -QUET25TA46 PO
[2020-05-26 16:18] LABS: Basophils # (auto) 0 10 ^3/uL (0-0.2); Basophils % (auto) 0.7 % (0.0-2.0); Monocytes # (auto) 0.5 10 ^3/uL (0-1.3); Platelet Count (auto) 140 10^3/uL (140-450); White Blood Cell 5.6 10^3/uL (4.4-10.8)
[2020-05-26 16:19] LABS: Eosinophils # (auto) 0 10 ^3/uL (0-0.8); Eosinophils % (auto) 0.8 % (0.0-7.0); Hematocrit 16.2 % (36.0-46.0); Lymphocytes # (auto) 0.9 10 ^3/uL (0.4-5.4); Lymphocytes % (auto) 15.3 % (10.0-50.0); Mean Corpuscular Hemoglobin 31.3 pg (28.0-32.0); Mean Corpuscular Hgb Conc. 33.2 g/dL (32.0-36.0); Mean Corpuscular Volume 94.2 fL (80.0-100.0); Monocytes % (auto) 9.3 % (0.0-12.0); Neutrophils # (auto) 4.1 10 ^3/uL (1.6-8.6); Neutrophils % (auto) 73.9 % (37.0-80.0); Red Blood Cells 1.72 10^6/uL (4.0-5.20); Red Cell Distribution Width 16.5 % (11.8-14.3)
[2020-05-26 16:31] LABS: Hemoglobin 5.4 g/dL (12.2-16.2)
[2020-05-26 16:34] LABS: INR 1.07 (0.9-1.15); Partial Thromboplastin Time 22.8 sec (23.0-31.2)
[2020-05-26 16:37] LABS: Albumin 2.4 g/dL (3.4-5.0); Calcium 8.3 mg/dL (8.5-10.1); Potassium 4.8 mmol/L (3.5-5.1)
[2020-05-26 16:43] LABS: BUN/Creatinine Ratio 7.1; Bilirubin, Total 0.5 mg/dL (0.2-1.0); Total Protein 5.7 g/dL (6.4-8.2)
[2020-05-26] MEDS ORDERED: NITROGLYCERIN 0.4 MG SL TAB SL PRN (19:00)
[2020-05-26] MEDS ORDERED: MORPHINE SULF INJ 2 MG/ML SYRINGE 1ML IV PRN (19:00)
--- NOTE | 2020-05-26 19:45 | NUR ---
Telemetry admit from ER JAQUELINE HANSEN admitted to Telemetry unit after SBAR received. Patient oriented to CAROLE HARRIS RN primary RN, unit, room, bed, and unit policies regarding patient care and visiting hours. Patient now on continuous telemetry monitoring, tele box # [id number] and telemetry reading on arrival to unit is sinus rhythm. Patient placed weighed by bed scale and encouraged to call if they need something. All questions and concerns addressed, patient verbalized understanding.
[2020-05-26 22:00] VITALS: BP 157/70
[2020-05-26] MEDS ORDERED: INSULIN LANTUS (GLARGINE) 1 /0.01ml (100units/ml) SC SCH (22:00)
--- NOTE | 2020-05-26 22:30 | NUR ---
BLOOD GLUCOSE blood glucose assessed via finger stick and is 56, rechecked ans is 58. 8oz of orange juice given. Will reassess. Addendum: 05/26/20 at 2327 by CAROLE HARRIS RN RN Scheduled Niharika jacobo d/t low BG.
[2020-05-26] MEDS: GABAPENTIN 100 MG CAP PO SCH (22:41)
[2020-05-26] MEDS: hydrALAZINE HCL 25 MG TAB PO SCH (22:41)
[2020-05-26] MEDS: levETIRAcetam 500 MG TAB PO SCH (22:41)
[2020-05-26] MEDS: QUEtiapine FUMARATE 100 MG TAB PO SCH (22:42)
[2020-05-26] MEDS: PANTOPRAZOLE 40 MG TAB PO SCH (22:42)
[2020-05-26] MEDS: hydrOXYchloroQUINE SULFATE 200 MG TAB PO SCH (22:42)
--- NOTE | 2020-05-26 23:00 | NUR ---
REASSESSMENT Blood sugar reassessed and is now 76.
[2020-05-26 23:07] VITALS: BP 176/71
--- NOTE | 2020-05-26 23:15 | NUR ---
BLOOD TRANSFUSION Blood transfusion started after verification by two RNs. Pre transfusion vital signs measured per protocol.
[2020-05-26 23:31] VITALS: BP 151/95
[2020-05-27] VITALS (13 sets, daily range): BP systolic 108–199; BP diastolic 59–93
[2020-05-27] MEDS ORDERED: TRAM50TA2 PO (01:42)
--- NOTE | 2020-05-27 02:09 | NUR ---
POST TRANSFUSION VITALS Blood pressure post transfusion is 180/94, HR 64. Temp is 98.1 and Spo2 96% on RA. Patient is not in any distress at this time. Will reassess prior to initiating second unit of PRBC. Hospitalist to be made aware.
[2020-05-27] MEDS: hydrALAZINE HCL 25 MG TAB PO SCH (03:43)
--- NOTE | 2020-05-27 04:03 | NUR ---
Patient assisted to BSC multiple times this shift and had 6 episodes of black liquid stool with trish blood. Patient has been seen by Dr. Bowman, GI specialist, in regards to rectal bleeding and is aware.
--- NOTE | 2020-05-27 05:05 | NUR ---
HOSPITALIST Hospitalist paged to notify of elevated BP. Awaiting call back.
--- NOTE | 2020-05-27 05:30 | NUR ---
BLOOD GLUCOSE Blood glucose assessed via finger stick and is 52. Patient is alert and oriented, mild tremors noted. Patient instructed that she will need to drink 8oz of juice again to increase blood sugar. Patient states. "I can't do that right now". Will administer dextrose as ordered and reassess.
--- NOTE | 2020-05-27 05:35 | NUR ---
HOSPITALIST received call back from Hospitalist. Informed him of Patient's blood pressure and feelings of SOB. Also informed of low blood glucose. New orders received. Read back and verified. Will follow through.
[2020-05-27] MEDS: ACCU-CHEK COMFORT CURVE STRIP VI SCH ×4 (05:41→18:00)
[2020-05-27] MEDS: GABAPENTIN 100 MG CAP PO SCH ×3 (05:41→22:42)
[2020-05-27] MEDS: InsuLIN REG 1unit/0.01ml Soln (100units/ml) SC SCH ×4 (05:41→18:00)
[2020-05-27] MEDS: DEXTROSE (50%) 50ML SYRG IV PRN ×2 (05:42→23:08)
[2020-05-27] MEDS ORDERED: FUROSEMIDE 20 MG/2 ML VIAL IV ONE (05:45)
--- NOTE | 2020-05-27 06:35 | NUR ---
LAB Grounds Manager attempted to obtain blood x2 without success. Will have another crew truck driver attempt to obtain blood sample.
--- NOTE | 2020-05-27 07:50 | NUR ---
Opening Shift Note Assumed care of patient, awake and alert. A/O X 4. No S/S of distress/SOB or pain. Patient is pale and edematous in the face and arms. Ankles are slightly swollen with darkened dry skin. Patient continues to have loose bloody/dark stools. Bedside commode present. Sacrum is red but blanchable and irritated. Instructed on POC and to call for assist PRN. Patient verbalized understanding. Bed is in lowest position and the call light is within reach of the patient. Bed alarm is on. Will continue to monitor for changes Q1hr and PRN.
[2020-05-27] MEDS: FERRIC CITRATE 420 MG PO SCH ×3 (08:00→18:00)
[2020-05-27] MEDS: CALCIUM ACETATE 667 MG CAP PO SCH ×3 (08:02→18:00)
[2020-05-27] MEDS: FERROUS SULFATE 325 MG TAB PO SCH ×3 (08:03→18:00)
[2020-05-27] MEDS: ATORVASTATIN 20 MG TAB PO SCH (09:54)
[2020-05-27] MEDS: PANTOPRAZOLE 40 MG TAB PO SCH ×2 (09:58→22:46)
[2020-05-27] MEDS: hydrOXYchloroQUINE SULFATE 200 MG TAB PO SCH ×2 (09:58→22:42)
[2020-05-27] MEDS: levETIRAcetam 500 MG TAB PO SCH ×2 (09:58→22:42)
[2020-05-27] MEDS ORDERED: DULoxetine HCL 30 MG CAP PO SCH (10:00)
[2020-05-27] MEDS ORDERED: NIFEdipine ER 30 MG TAB PO SCH (10:00)
[2020-05-27] MEDS ORDERED: PANTOPRAZOLE 40 MG TAB PO SCH (10:00)
[2020-05-27 10:19] LABS: Basophils # (auto) 0 10 ^3/uL (0-0.2); Lymphocytes # (auto) 0.7 10 ^3/uL (0.4-5.4); Monocytes # (auto) 0.4 10 ^3/uL (0-1.3); Monocytes % (auto) 8.9 % (0.0-12.0); Platelet Count (auto) 119 10^3/uL (140-450)
[2020-05-27 10:20] LABS: Basophils % (auto) 0.9 % (0.0-2.0); Eosinophils # (auto) 0 10 ^3/uL (0-0.8); Hematocrit 12.3 % (36.0-46.0); Mean Corpuscular Hemoglobin 31.2 pg (28.0-32.0); Mean Corpuscular Hgb Conc. 34.7 g/dL (32.0-36.0); Mean Corpuscular Volume 89.7 fL (80.0-100.0); Neutrophils # (auto) 3.5 10 ^3/uL (1.6-8.6); Neutrophils % (auto) 74.2 % (37.0-80.0); Nucleated Red Blood Cells % 0.8 %; Red Blood Cells 1.37 10^6/uL (4.0-5.20); White Blood Cell 4.7 10^3/uL (4.4-10.8)
[2020-05-27 10:25] LABS: Red Cell Distribution Width 20.6 % (11.8-14.3)
[2020-05-27 10:34] LABS: Hemoglobin 4.3 g/dL (12.2-16.2)
[2020-05-27 10:37] LABS: Albumin 1.9 g/dL (3.4-5.0); Calcium 7.5 mg/dL (8.5-10.1)
[2020-05-27 10:41] LABS: BUN/Creatinine Ratio 7.4; Bilirubin, Total 0.4 mg/dL (0.2-1.0); Total Protein 4.3 g/dL (6.4-8.2)
[2020-05-27] MEDS ORDERED: FUROSEMIDE 100 MG/10ML VIAL IV ONE (12:00)
--- NOTE | 2020-05-27 12:00 | NUR ---
Lab values and BP Critical HBG called in by lab 5.1. BG at this time 53. Patient awake and oriented. Juice given. BP also reassessed at this time after hydralazine given. 139/60. Dr. Herman made aware of all values.
[2020-05-27] MEDS: hydrALAZINE HCL 20 MG/ML VL IV SCH ×2 (12:05→18:00)
[2020-05-27] MEDS: SODIUM FERR GLUC 62.5MG/5ML 125 MG in SODIUM CHL 0.9% 100 ML IV SCH (12:12)
--- NOTE | 2020-05-27 12:21 | NUR ---
Dr. Calhoun at bedside Dr. Calhoun at bedside discussing the POC wit the patient. Doctor suggesting dialysis for the patient tomorrow. Requests to have blood transfused over 4 hours. Update on HGB.
[2020-05-27 12:32] LABS: Hematocrit 15.1 % (36.0-46.0)
[2020-05-27 12:37] LABS: Hemoglobin 5.1 g/dL (12.2-16.2)
--- NOTE | 2020-05-27 13:14 | NUR ---
Nuclear Med transported patient Nuclear medicine transported patient off the unit by wheelchair. Patient tolerated the transfer well.
--- NOTE | 2020-05-27 14:03 | NUR ---
Nutrition Assessment Est energy needs 3074-7108 kcal (20-23 kcal/kg BW 81.6kg) Est protein needs 82-98g (1-1.2g/kg BW 81.6kg r/t to ESRD on HD) Will monitor and reassess prn. Addendum: 05/27/20 at [address] Amended: Links added.
[2020-05-27] MEDS: NIFEdipine ER 30 MG TAB PO SCH (14:30)
[2020-05-27] MEDS: traMADol HCL 50 MG TAB PO PRN (18:16)
--- NOTE | 2020-05-27 19:00 | NUR ---
Medication withheld Hydralazine withheld due to patient receiving dialysis. Will notify hospitalist ski production supervisor.
--- NOTE | 2020-05-27 19:42 | NUR ---
OPENING SHIFT NOTE Assumed care of patient who is A&O x4. Currently on 2L NC with no s/s of distress. Patient is resting comfortably with eyes closed at this time. Currently receiving dialysis. Dialysis nurse present at bedside monitoring patient. States dialysis will be complete in approximately 2 hours. PRBC currently infusing as ordered; started by previous RN. Bed is in low locked position with side rails up x2. Call light is within reach. Seizure and fall precautions in place. Will continue to monitor for changes PRN.
--- NOTE | 2020-05-27 20:00 | NUR ---
BLOOD TRANSFUSION Blood transfusion being managed/completed by dialysis nurse. Blood has completed and saline is now running. Patient denies any adverse effects at this time.
[2020-05-27] MEDS ORDERED: EPOETIN ALFA 10,000 UNIT/1 ML VIAL SC ONE (21:00)
--- NOTE | 2020-05-27 22:05 | NUR ---
SCHEDULED MEDICATIONS Patient is still receiving dialysis at this time. 2200 scheduled medications to be administered following the completion of dialysis.
--- NOTE | 2020-05-27 22:27 | NUR ---
DIALYSIS Dialysis complete. 3.5L removed. BP 104/50 HR: 60. Patient tolerated well.
--- NOTE | 2020-05-27 22:30 | NUR ---
BLOOD DRAW Zinc Furnace Charger attempted to obtain blood sample for ordered labs but was unsuccessful. Patient refused to allow a second attempt to be made at this time. Second attempt to be made by a different supervisor intermediates at a later time.
[2020-05-27] MEDS: QUEtiapine FUMARATE 100 MG TAB PO SCH (22:43)
[2020-05-28] VITALS (14 sets, daily range): BP systolic 13–155; BP diastolic 49–68
[2020-05-28] MEDS: ACCU-CHEK COMFORT CURVE STRIP VI SCH ×4 (00:28→17:32)
[2020-05-28] MEDS: traMADol HCL 50 MG TAB PO PRN (00:29)
[2020-05-28 02:42] LABS: Hematocrit 13.1 % (36.0-46.0)
--- NOTE | 2020-05-28 02:42 | NUR ---
CRITICAL LAB Received call from lab reporting critical Hgb of 4.5. Hospitalist called to notify.
[2020-05-28 02:43] LABS: Hemoglobin 4.5 g/dL (12.2-16.2)
--- NOTE | 2020-05-28 03:16 | NUR ---
HOSPITALIST Received call back from [facility]. New orders received. Read back and verified. Will follow through.
--- NOTE | 2020-05-28 05:13 | NUR ---
BLOOD TRANSFUSION Blood transfusion initiated after verification by two RNs. Please see transfusion documentation for vital signs. Patient tolerating well.
--- NOTE | 2020-05-28 05:46 | NUR ---
BLOOD GLUCOSE Blood glucose is 56. Patient given 8oz orange juice. Will reassess.
[2020-05-28] MEDS: InsuLIN REG 1unit/0.01ml Soln (100units/ml) SC SCH ×4 (05:47→17:32)
[2020-05-28] MEDS: GABAPENTIN 100 MG CAP PO SCH ×3 (05:47→21:40)
[2020-05-28] MEDS: hydrALAZINE HCL 20 MG/ML VL IV SCH ×3 (06:00→11:46)
--- NOTE | 2020-05-28 06:39 | NUR ---
REASSESSMENT Blood glucose reassessed and is 86.
--- NOTE | 2020-05-28 06:47 | NUR ---
CLOSING NOTE Patient is resting in bed with eyes closed. Respirations are even and non-labored. No distress noted at this time. Blood transfusing in progress. Care endorsed to on coming RN.
[2020-05-28] MEDS: FERRIC CITRATE 420 MG PO SCH ×3 (08:00→17:35)
--- NOTE | 2020-05-28 08:00 | NUR ---
OPENING SHIFT NOTE ASSUMED CARE OF PATIENT AWAKE AND ALERT. PATIENT CURRENTLY TRANSFUSING A UNIT OF PRBCS, TOLERATING WELL. PATIENT UPDATED ON POC FOR THE DAY AND ALL QUESTIONS ANSWERED. BED IS IN LOWEST, LOCKED POSITION WITH SIDE RAILS UP X2 AND CALL LIGHT WITHIN REACH. WILL CONTINUE TO MONITOR Q1H AND PRN.
--- NOTE | 2020-05-28 08:45 | NUR ---
ESTABLISHED IV IV TO RAC IS LEAKING, BUT PATENT. MIDLINE ORDER PLACED D/T EXPECTED MULTIPLE BLOOD TRANSFUSIONS NEEDED, PICC LINE NURSE CALLED. AWAITING CALL BACK.
[2020-05-28] MEDS ORDERED: MORPHINE SULF INJ 2 MG/ML SYRINGE 1ML ONE (09:36)
--- NOTE | 2020-05-28 10:00 | NUR ---
CENTRAL LINE PLACEMENT DR THOMAS SEEN AT NURSES STATION AND ASKED TO CONSULT FOR A CENTRAL LINE ON PATIENT. DIFFICULT CENTRAL LINE PLACEMENT ESTABLISHED USING STERILE TECHNIQUE AFTER THREE ATTEMPTS. ONE TIME DOSE OF 2MG IV MORPHINE GIVEN DURING PROCEDURE FOR PAIN. PATIENT REPOSITIONED FOR COMFORT AFTER PROCEDURE.
[2020-05-28] MEDS: CALCIUM ACETATE 667 MG CAP PO SCH ×3 (10:01→17:31)
[2020-05-28] MEDS: levETIRAcetam 500 MG TAB PO SCH ×2 (10:01→21:41)
[2020-05-28] MEDS: FERROUS SULFATE 325 MG TAB PO SCH ×3 (10:01→17:31)
[2020-05-28] MEDS: ATORVASTATIN 20 MG TAB PO SCH (10:02)
[2020-05-28] MEDS: NIFEdipine ER 30 MG TAB PO SCH (10:02)
[2020-05-28] MEDS: hydrOXYchloroQUINE SULFATE 200 MG TAB PO SCH ×2 (10:02→21:40)
[2020-05-28] MEDS: PANTOPRAZOLE 40 MG TAB PO SCH (10:02)
--- NOTE | 2020-05-28 10:25 | NUR ---
SPOKE WITH RECEIVED CALL FROM DR PRINGLE REGARDING SURGICAL CONSULT. PER DR SAVAGE HAVE DR FONTENOT CALL HIM IF HE NEEDS HIS ASSISTANCE WITH A PROCEDURE.
--- NOTE | 2020-05-28 10:44 | NUR ---
MDS AT BEDSIDE DR FONTENOT AND DR LUCIANO AT BEDSIDE ROUNDING ON PATIENT.
[2020-05-28] MEDS ORDERED: FUROSEMIDE 100 MG/10ML VIAL IV ONE (10:45)
[2020-05-28 10:51] LABS: Basophils # (auto) 0 10 ^3/uL (0-0.2); Eosinophils # (auto) 0 10 ^3/uL (0-0.8); Eosinophils % (auto) 0.7 % (0.0-7.0); Lymphocytes # (auto) 0.9 10 ^3/uL (0.4-5.4); Mean Corpuscular Hemoglobin 29.9 pg (28.0-32.0); Mean Corpuscular Hgb Conc. 33.8 g/dL (32.0-36.0); Mean Corpuscular Volume 88.4 fL (80.0-100.0); Monocytes # (auto) 0.6 10 ^3/uL (0-1.3)
[2020-05-28 10:53] LABS: Basophils % (auto) 0.6 % (0.0-2.0); Hematocrit 15.5 % (36.0-46.0); Lymphocytes % (auto) 17.4 % (10.0-50.0); Monocytes % (auto) 12.6 % (0.0-12.0); Neutrophils # (auto) 3.4 10 ^3/uL (1.6-8.6); Neutrophils % (auto) 68.7 % (37.0-80.0); Nucleated Red Blood Cells % 0.3 %; Platelet Count (auto) 118 10^3/uL (140-450); Red Blood Cells 1.75 10^6/uL (4.0-5.20); Red Cell Distribution Width 16.9 % (11.8-14.3)
[2020-05-28 10:56] LABS: Hemoglobin 5.2 g/dL (12.2-16.2)
--- NOTE | 2020-05-28 11:20 | NUR ---
WOUND CARE NOTE: Wound care in to see patient per wound care request regarding skin integrity issue that are noted on admission. Bedside nurse took photograph of patient's skin issue upon admission for reference. Patient is 54 years old female with admitting diagnosis of GI Bleed, Anemia. Patient is resting in bed in Rm. 220A. Patient is awake, alert and oriented. Patient is in no stated pain at this time and she appears to be in no pain using Short [place] Faces Pain Scale. She's able to assist in turning and repositioning and her Vega score is 17. Patient noted with intact pink scar tissue to distal sacrum and mild/resolving Moisture associated dermatitis. Caren care given, applied Z Guard cream to sacral, buttocks and covered upper sacrum with protective Opti foam gentle dressing. Patient's plantar R great toe noted with 2x1.5cm open partial thickness skin tear. Wound is pale pink with pink caren wound,minimal serous drainage noted on old dressing,no odor noted. Patient's nose noted with purple ecchymosis. Patient reported that she had a fall "yesterday" prior coming to hospital. Cleansed patient's R great toe wound with NS,patted dry with gauze, applied Thera honey gel and covered with Band aid. Repositioned patient for comfort facing her Lt side, redistributed pressure points with pillows. Patient tolerated well. CHAPIN Palomo and another nurse at bedside getting ready and checking to administer blood. RECOMMENDATION: Nursing to continue with BID/PRN cleaning and application of Barrier cream to sacral, buttocks as preventative, EOD/PRN dressing change to Rt great toe skin tear per MD order, frequent turning and repositioning schedule as condition permits, redistribute pressure points with pillows, frequent caren care/check, keep clean and dry, continue monitoring by wound care while patient is hospitalized. Addendum: 05/28/20 at 1443 by Ela Avilez RN Amended: Links added.
[2020-05-28] MEDS: HYDROcodone-ACET 5/325MG TAB PO PRN ×2 (11:43→21:12)
[2020-05-28 11:50] LABS: INR 1.1 (0.9-1.15); Partial Thromboplastin Time 28.7 sec (23.0-31.2)
[2020-05-28 12:02] LABS: Potassium 3.5 mmol/L (3.5-5.1)
[2020-05-28 12:27] LABS: BUN/Creatinine Ratio 5.4; Calcium 7.8 mg/dL (8.5-10.1)
[2020-05-28] MEDS ORDERED: ONDANSETRON HCL 4 MG/2 ML VIAL IV PRN (12:30)
--- NOTE | 2020-05-28 12:34 | NUR ---
AT BEDSIDE DR BRIGGS AT BEDSIDE ROUNDING ON PATIENT.
[2020-05-28] MEDS ORDERED: ONDANSETRON HCL 4 MG/2 ML VIAL ONE (12:38)
[2020-05-28] MEDS: SODIUM FERR GLUC 62.5MG/5ML 125 MG in SODIUM CHL 0.9% 100 ML IV SCH (12:45)
--- NOTE | 2020-05-28 13:30 | NUR ---
XRAY RESULTS DR THOMAS MADE AWARE OF CHEST XRAY RESULTS. NO NEW ORDERS AT THIS TIME. WILL CONTINUE CARE.
[2020-05-28] MEDS: LORazepam 0.5 MG TAB PO PRN (15:10)
[2020-05-28 19:23] LABS: Hematocrit 26.4 % (36.0-46.0); Hemoglobin 8.7 g/dL (12.2-16.2)
--- NOTE | 2020-05-28 19:30 | NUR ---
OPENING SHIFT NOTE Assumed care of patient who is A&O x4. Currently on RA with no s/s of distress. Reports 10/10 generalized pain at this time. Pain management options discussed. Right IJ triple lumen central line in place. All three lumens are patent; flushed with NS. Fistula in left upper arm noted. Thrill and bruit present. POC discussed and patient verbalizes understanding. Bed is in low locked position with side rails up x2. Call light is within reach and patient encouraged to call for assistance when needed. Will continue to monitor for changes PRN.
--- NOTE | 2020-05-28 21:00 | NUR ---
Patient assisted on to bedside commode. one episode of soft green stool. No trish blood noted.
[2020-05-28] MEDS: PANTOPRAZOLE 40 MG/10 ML VIAL INJ IV SCH (21:40)
[2020-05-28] MEDS: QUEtiapine FUMARATE 100 MG TAB PO SCH (21:41)
[2020-05-28] MEDS: hydrALAZINE HCL 25 MG TAB PO SCH (21:42)
[2020-05-29] MEDS: ACCU-CHEK COMFORT CURVE STRIP VI SCH ×4 (00:42→18:02)
--- NOTE | 2020-05-29 00:43 | NUR ---
BLOOD GLUCOSE Blood glucose assessed and is 68. Patient is asymptomatic. Given 2 Jellos. Will reassess.
[2020-05-29 00:51] LABS: Hematocrit 25.8 % (36.0-46.0); Hemoglobin 8.7 g/dL (12.2-16.2)
[2020-05-29] MEDS: traMADol HCL 50 MG TAB PO PRN ×2 (00:59→22:12)
--- NOTE | 2020-05-29 02:17 | NUR ---
REASSESSMENT Blood glucose reassessed and is 73.
[2020-05-29 05:40] VITALS: BP 144/65
--- NOTE | 2020-05-29 05:58 | NUR ---
BLOOD GLUCOSE Blood glucose assessed and is 65. Patient refused juice stating, "Im tired. I'm trying to sleep". Dextrose to be administered. Will reassess BG.
[2020-05-29] MEDS: hydrALAZINE HCL 25 MG TAB PO SCH ×4 (05:59→22:11)
[2020-05-29] MEDS: GABAPENTIN 100 MG CAP PO SCH ×3 (06:00→22:12)
[2020-05-29] MEDS: InsuLIN REG 1unit/0.01ml Soln (100units/ml) SC SCH ×4 (06:00→18:00)
[2020-05-29] MEDS: DEXTROSE (50%) 50ML SYRG IV PRN (06:01)
[2020-05-29 06:14] LABS: Basophils # (auto) 0 10 ^3/uL (0-0.2); Eosinophils # (auto) 0 10 ^3/uL (0-0.8); Hemoglobin 8.4 g/dL (12.2-16.2); Lymphocytes # (auto) 0.8 10 ^3/uL (0.4-5.4); Monocytes # (auto) 0.5 10 ^3/uL (0-1.3); Platelet Count (auto) 122 10^3/uL (140-450); White Blood Cell 4.1 10^3/uL (4.4-10.8)
[2020-05-29 06:17] LABS: Basophils % (auto) 0.8 % (0.0-2.0); Hematocrit 24.3 % (36.0-46.0); Lymphocytes % (auto) 20.1 % (10.0-50.0); Mean Corpuscular Hemoglobin 29.9 pg (28.0-32.0); Mean Corpuscular Hgb Conc. 34.6 g/dL (32.0-36.0); Mean Corpuscular Volume 86.6 fL (80.0-100.0); Monocytes % (auto) 12.2 % (0.0-12.0); Neutrophils # (auto) 2.7 10 ^3/uL (1.6-8.6); Neutrophils % (auto) 65.9 % (37.0-80.0); Nucleated Red Blood Cells % 0.1 %; Red Blood Cells 2.81 10^6/uL (4.0-5.20)
[2020-05-29 06:22] LABS: Albumin 1.9 g/dL (3.4-5.0); Calcium 7.8 mg/dL (8.5-10.1); Potassium 3.6 mmol/L (3.5-5.1)
[2020-05-29 06:26] LABS: Bilirubin, Total 0.4 mg/dL (0.2-1.0); Total Protein 4.5 g/dL (6.4-8.2)
--- NOTE | 2020-05-29 06:34 | NUR ---
REASSESSMENT Blood glucose reassessed and is now 116.
[2020-05-29] MEDS: FERRIC CITRATE 420 MG PO SCH ×3 (08:00→18:00)
[2020-05-29 09:00] VITALS: BP 147/57
[2020-05-29] MEDS ORDERED: FUROSEMIDE 100 MG/10ML VIAL IV SCH (10:00)
--- NOTE | 2020-05-29 10:00 | NUR ---
MEDICATION HELD SCHEDULED IV LASIX HELD D/T PATIENT BEING OLIGURIC AFTER LAST ADMINISTRATION OF IV LASIX. DR LUCIANO NOTIFIED. NO NEW ORDERS RECEIVED. WILL CONTINUE CARE.
[2020-05-29] MEDS: levETIRAcetam 500 MG TAB PO SCH ×2 (10:04→22:11)
[2020-05-29] MEDS: ATORVASTATIN 20 MG TAB PO SCH (10:04)
[2020-05-29] MEDS: PANTOPRAZOLE 40 MG/10 ML VIAL INJ IV SCH ×2 (10:04→22:10)
[2020-05-29] MEDS: FERROUS SULFATE 325 MG TAB PO SCH ×3 (10:04→18:02)
[2020-05-29] MEDS: hydrOXYchloroQUINE SULFATE 200 MG TAB PO SCH ×2 (10:04→22:12)
[2020-05-29] MEDS: CALCIUM ACETATE 667 MG CAP PO SCH ×3 (10:04→18:02)
[2020-05-29] MEDS: NIFEdipine ER 30 MG TAB PO SCH (10:05)
[2020-05-29] MEDS: HYDROcodone-ACET 5/325MG TAB PO PRN (11:11)
--- NOTE | 2020-05-29 12:19 | NUR ---
Nutrition Followup Note Wt 81.6 kg Pt was with MD at bedside. per records pt with GI bleed anemia due to hemorrhoids. pt is now advanced to full liq diet with adequate PO of 100% x 2 per RN doc. pt had HD 05/27 Est energy needs ABW 67 [id number] kcal (25-27kcal/kg ABW) Est protein needs: 80-87g (1.2-1.3g/kg ABW r/t to ESRD on HD) Will monitor and reassess prn. Labs: BUN 24 H CREAT 4.78 H CA 7.8 L ALB 1.9 L BM: Pt with 1 BM today per RN note Skin: BS 16 mod risk, full details in [facility] worker note. PES: 1) Altered nutrition related lab values r.t current chronic medical condition aeb elev RFT hypoalb Comments: will continue to monitor PO intake, skin status. F/u low 3-5 days Rec: 1) advance diet as medically feasible to CCHO 60 gm renal std. 2) consider prostat 1 packet bid. 2) refer to CDE oN DC. 3) continue current plan of care
--- NOTE | 2020-05-29 12:31 | NUR ---
AT BEDSIDE DR BRIGGS AT BEDSIDE ROUNDING ON PATIENT. DIALYSIS ORDERS FOR TOMORROW PLACED. WILL CONTINUE CARE.
--- NOTE | 2020-05-29 12:35 | NUR ---
HYPERTENSION BLOOD PRESSURE IS 172/62. SPOKE WITH DR LUCIANO. NEW ORDERS TO INCREASE HYDRALAZINE ORDER TO 50MG AND GIVE 1400 DOSE NOW. WILL CARRY OUT AND CONTINUE CARE.
[2020-05-29 13:00] VITALS: BP 172/62
[2020-05-29] MEDS: SODIUM FERR GLUC 62.5MG/5ML 125 MG in SODIUM CHL 0.9% 100 ML IV SCH (14:39)
[2020-05-29] MEDS ORDERED: hydrALAZINE HCL 20 MG/ML VL IV PRN (16:30)
[2020-05-29 17:00] VITALS: BP 148/50
--- NOTE | 2020-05-29 19:30 | NUR ---
Opening shift note Assumed care of patient from day shift RN, Stacia. Patient sitting up on the side of the bed eating dinner, A&Ox4, respirations even and non-labored with no s/s of distress at this time. Discussed POC with patient who verbalized understanding. Noted patients dressing to left upper arm fistula is CDI from dialysis completed earlier. Left CL IJ dressing CDI at this time with ports flushed and patent. Advised patient to call for assistance. Safety precautions in place, bed in lowest locked position with 2 side rails up, call light within reach. Will continue to monitor Q1hr and PRN.
[2020-05-29] MEDS ORDERED: EPOETIN ALFA 10,000 UNIT/1 ML VIAL IV ONE (21:00)
--- NOTE | 2020-05-29 21:46 | NUR ---
Received call from patients family Spoke to patients sister Sandi Noriega. Answered questions discussed family concerns.
[2020-05-29 22:00] VITALS: BP 129/65
[2020-05-29] MEDS: QUEtiapine FUMARATE 100 MG TAB PO SCH (22:12)
[2020-05-29] MEDS: LORazepam 0.5 MG TAB PO PRN (22:12)
[2020-05-30] MEDS: ACCU-CHEK COMFORT CURVE STRIP VI SCH ×4 (00:07→16:54)
--- NOTE | 2020-05-30 00:17 | NUR ---
Patient BS 60 Patient given orange juice per EMAR. Patient A&Ox4 and asymptomatic at this time. Patient stated that this was a normal occurrence for her. Will continue to monitor.
--- NOTE | 2020-05-30 01:22 | NUR ---
Blood glucose Patient blood glucose 91.
--- NOTE | 2020-05-30 01:55 | NUR ---
Patient sacrum dressing replaced Patient requested assistance with her bedding. Noted that optifoam dressing was dislodged. Cleaned area, applied barrier cream and replaced with new optifoam. Repositioned patient for comfort and added blankets for warmth. Patient tolerated well.
--- NOTE | 2020-05-30 03:40 | NUR ---
Patient moved to room 250A
[2020-05-30 05:00] VITALS: BP 143/58
[2020-05-30] MEDS: InsuLIN REG 1unit/0.01ml Soln (100units/ml) SC SCH ×5 (06:00→18:00)
[2020-05-30] MEDS: hydrALAZINE HCL 25 MG TAB PO SCH ×3 (06:11→21:08)
[2020-05-30] MEDS: GABAPENTIN 100 MG CAP PO SCH ×3 (06:11→21:10)
--- NOTE | 2020-05-30 06:13 | NUR ---
Blood glucose B. Patient A&Ox4, asymptomatic. Gave juice per EMAR, will recheck in 1 hour.
[2020-05-30 06:45] LABS: Basophils # (auto) 0 10 ^3/uL (0-0.2); Basophils % (auto) 0.6 % (0.0-2.0); Eosinophils # (auto) 0 10 ^3/uL (0-0.8); Eosinophils % (auto) 0.4 % (0.0-7.0); Hematocrit 26.7 % (36.0-46.0); Lymphocytes % (auto) 21.7 % (10.0-50.0); Mean Corpuscular Hemoglobin 29.4 pg (28.0-32.0); Mean Corpuscular Hgb Conc. 33.5 g/dL (32.0-36.0); Mean Corpuscular Volume 87.6 fL (80.0-100.0); Monocytes # (auto) 0.5 10 ^3/uL (0-1.3); Monocytes % (auto) 10.6 % (0.0-12.0); Neutrophils # (auto) 3.2 10 ^3/uL (1.6-8.6); Neutrophils % (auto) 66.7 % (37.0-80.0); Nucleated Red Blood Cells % 0.3 %; Platelet Count (auto) 124 10^3/uL (140-450); Red Blood Cells 3.05 10^6/uL (4.0-5.20); Red Cell Distribution Width 16.1 % (11.8-14.3); White Blood Cell 4.7 10^3/uL (4.4-10.8)
--- NOTE | 2020-05-30 06:57 | NUR ---
Blood glucose BG 103.
[2020-05-30 06:59] LABS: BUN/Creatinine Ratio 3.3; Calcium 7.8 mg/dL (8.5-10.1); Potassium 3.1 mmol/L (3.5-5.1)
[2020-05-30] MEDS ORDERED: SODIUM CHL 0.9% 1000 ML BAG XX ONE (07:00)
--- NOTE | 2020-05-30 07:30 | NUR ---
Opening Shift Note Assumed care of patient, awake and alert. No S/S of distress/SOB or pain. Patient assisted to BSC had small BM , formed; returned to bed with stand by assist; patient tolerated well. Triple lumen right IJ central flushed all three ports patient tolerated well. Left upper arm av fistula dressing clean dry and intact. Instructed on POC and to call for assist PRN, will continue to monitor for changes Q1hr and PRN.
[2020-05-30] MEDS: FERRIC CITRATE 420 MG PO SCH ×3 (08:00→18:00)
[2020-05-30 09:00] VITALS: BP 152/54
[2020-05-30] MEDS: PANTOPRAZOLE 40 MG/10 ML VIAL INJ IV SCH ×2 (09:04→21:09)
[2020-05-30] MEDS: CALCIUM ACETATE 667 MG CAP PO SCH ×3 (09:04→16:52)
[2020-05-30] MEDS: hydrOXYchloroQUINE SULFATE 200 MG TAB PO SCH ×2 (09:05→21:11)
[2020-05-30] MEDS: levETIRAcetam 500 MG TAB PO SCH ×2 (09:05→21:10)
[2020-05-30] MEDS: NIFEdipine ER 30 MG TAB PO SCH (09:05)
[2020-05-30] MEDS: FERROUS SULFATE 325 MG TAB PO SCH ×3 (09:05→16:52)
[2020-05-30] MEDS: ATORVASTATIN 20 MG TAB PO SCH (09:08)
[2020-05-30] MEDS: traMADol HCL 50 MG TAB PO PRN ×2 (09:25→21:12)
[2020-05-30] MEDS: SODIUM FERR GLUC 62.5MG/5ML 125 MG in SODIUM CHL 0.9% 100 ML IV SCH (12:05)
--- NOTE | 2020-05-30 12:15 | NUR ---
TAKEN TO BLEEDING SCAN VIA WHEELCHAIR BY LIZ JIMENES. PATIENT TOLERATED WELL.
--- NOTE | 2020-05-30 14:45 | NUR ---
RETURNED FROM PROCEDURE. PATIENT TOLERATED WELL. DENIED PAIN OR DISTRESS, NO SOB.
[2020-05-30] MEDS: LORazepam 0.5 MG TAB PO PRN (14:48)
[2020-05-30] MEDS: SUCRALFATE 1 GM/10 ML ORAL SUSP PO SCH ×2 (16:52→21:09)
[2020-05-30 17:00] VITALS: BP 152/77
[2020-05-30 17:31] LABS: Albumin 2.2 g/dL (3.4-5.0); Calcium 8.4 mg/dL (8.5-10.1); Potassium 3.1 mmol/L (3.5-5.1)
[2020-05-30 17:35] LABS: BUN/Creatinine Ratio 2.9; Bilirubin, Total 0.5 mg/dL (0.2-1.0); Total Protein 5.1 g/dL (6.4-8.2)
--- NOTE | 2020-05-30 19:35 | NUR ---
Opening shift note Assumed care of patient from day shift RN, Jamison. Patient sleeping, respirations even and non-labored with no s/s of distress at this time. Placed POC on whiteboard and will return to discuss patient concerns and plans for tomorrow when patient is awake. Safety precautions in place, bed in lowest locked position with 2 side rails up, call light within reach. Will continue to monitor Q1hr and PRN.
[2020-05-30] MEDS ORDERED: EPOETIN ALFA 10,000 UNIT/1 ML VIAL SC ONE (21:00)
[2020-05-30] MEDS: QUEtiapine FUMARATE 100 MG TAB PO SCH (21:11)
[2020-05-30 22:00] VITALS: BP 145/68
[2020-05-31] MEDS: ACCU-CHEK COMFORT CURVE STRIP VI SCH ×4 (00:26→18:04)
[2020-05-31] MEDS: LORazepam 0.5 MG TAB PO PRN ×2 (01:11→21:28)
[2020-05-31 05:00] VITALS: BP 146/63
[2020-05-31] MEDS: InsuLIN REG 1unit/0.01ml Soln (100units/ml) SC SCH ×4 (05:50→18:00)
[2020-05-31] MEDS: SUCRALFATE 1 GM/10 ML ORAL SUSP PO SCH ×4 (05:53→21:27)
[2020-05-31] MEDS: GABAPENTIN 100 MG CAP PO SCH ×3 (05:53→21:29)
[2020-05-31] MEDS: hydrALAZINE HCL 25 MG TAB PO SCH ×3 (05:53→21:28)
[2020-05-31] MEDS ORDERED: SODIUM CHL 0.9% 1000 ML BAG XX ONE (07:00)
--- NOTE | 2020-05-31 07:00 | NUR ---
Closing shift note Patient resting, respirations even and non-labored with no s/s of distress. Endorsed care to day shift RNJamison.
[2020-05-31 07:12] LABS: Hematocrit 24.4 % (36.0-46.0); Hemoglobin 8.3 g/dL (12.2-16.2)
--- NOTE | 2020-05-31 07:30 | NUR ---
Opening Shift Note Upon entering room patient awake and alert. No signs of distress noted. Respirations even and unlabored. Bed locked and in lowest position. Call light within reach. Instructed pt to use call light, patient verbalized understanding. Will continue to monitor for any changes.
[2020-05-31 07:40] LABS: % Iron Saturation 35.5 % (15-50)
[2020-05-31] MEDS: FERRIC CITRATE 420 MG PO SCH ×3 (08:00→18:00)
[2020-05-31] MEDS ORDERED: diphenhdrAMINE HCL 50 MG/1 ML VL ONE (08:25)
[2020-05-31] MEDS ORDERED: LIDOCAINE VISCOUS 2% 15ML UD ONE (08:25)
[2020-05-31] MEDS ORDERED: SODIUM CHLORIDE LOCK 10 ML ONE ×2 (08:25→08:31)
[2020-05-31 08:30] LABS: BUN/Creatinine Ratio 2.8; Calcium 7.9 mg/dL (8.5-10.1)
[2020-05-31 09:00] VITALS: BP 121/52
[2020-05-31] MEDS ORDERED: D5W 5% 1,000 ML IV SCH ×2 (10:15→12:45)
--- NOTE | 2020-05-31 11:50 | NUR ---
PATIENT OFF UNIT Patient taken down to OR via hospital bed for scheduled EGD. Patient denied pain, no distress or shortness of breath.
[2020-05-31] MEDS: fentaNYL CITRATE 100 MCG/2 ML VL ONE ×2 (12:03→12:06)
[2020-05-31] MEDS: MIDAZOLAM HCL 5 MG/ML-1ML VIAL ONE ×2 (12:03→12:06)
[2020-05-31] MEDS: hydrOXYchloroQUINE SULFATE 200 MG TAB PO SCH ×2 (13:24→21:28)
[2020-05-31] MEDS: levETIRAcetam 500 MG TAB PO SCH ×2 (13:28→21:28)
[2020-05-31] MEDS: ATORVASTATIN 20 MG TAB PO SCH (13:30)
[2020-05-31] MEDS: FERROUS SULFATE 325 MG TAB PO SCH ×2 (13:31→18:05)
[2020-05-31] MEDS: NIFEdipine ER 30 MG TAB PO SCH (14:11)
[2020-05-31] MEDS: CALCIUM ACETATE 667 MG CAP PO SCH ×3 (14:12→18:04)
--- NOTE | 2020-05-31 14:16 | NUR ---
RETURNED FROM PROCEDURE patient s/p EGD with dr Bowman. tolerated well. denied pain, no SOB or distress. Dr Herman ordered to resume diet of CCD.
--- NOTE | 2020-05-31 14:17 | NUR ---
FAXED DIETARY patient did not recieve a lunch tray.
[2020-05-31 17:16] VITALS: BP 122/51
--- NOTE | 2020-05-31 19:09 | NUR ---
endorsed care to night rn; patient continues to refuse sacral optifoam
--- NOTE | 2020-05-31 19:30 | NUR ---
Opening shift note Assumed care of patient from day shift RN, Jamison. Patient A&Ox4 sitting up in bed, respirations even and non-labored with no s/s of distress at this time. Discussed POC with patient who verbalized understanding. Safety precautions in place, bed in lowest locked position with 2 side rails up, call light within reach. Advised patient to call for assistance, will continue to monitor Q1hr and PRN.
[2020-05-31] MEDS ORDERED: EPOETIN ALFA 10,000 UNIT/1 ML VIAL SC ONE (21:00)
[2020-05-31] MEDS: PANTOPRAZOLE 40 MG TAB PO SCH (21:28)
[2020-05-31] MEDS: QUEtiapine FUMARATE 100 MG TAB PO SCH (21:29)
[2020-05-31] MEDS: traMADol HCL 50 MG TAB PO PRN (21:29)
[2020-05-31 22:05] VITALS: BP 144/68
[2020-06-01] MEDS: ACCU-CHEK COMFORT CURVE STRIP VI SCH ×3 (00:14→11:42)
[2020-06-01] MEDS: InsuLIN REG 1unit/0.01ml Soln (100units/ml) SC SCH ×3 (05:40→11:48)
[2020-06-01] MEDS: GABAPENTIN 100 MG CAP PO SCH (06:01)
[2020-06-01] MEDS: hydrALAZINE HCL 25 MG TAB PO SCH (06:01)
[2020-06-01] MEDS: SUCRALFATE 1 GM/10 ML ORAL SUSP PO SCH ×2 (06:02→11:40)
[2020-06-01 06:19] LABS: Hemoglobin 8.1 g/dL (12.2-16.2)
[2020-06-01 06:24] LABS: Hematocrit 23.9 % (36.0-46.0)
--- NOTE | 2020-06-01 07:30 | NUR ---
Closing shift note Patient resting, respirations even and non-labored without s/s of distress at this time. Endorsed care to day shift RN.
[2020-06-01 09:00] VITALS: BP 146/68
[2020-06-01] MEDS ORDERED: SUCR1TAB22 PO (09:55)
[2020-06-01] MEDS ORDERED: PANT40T PO (10:03)
[2020-06-01] MEDS: ATORVASTATIN 20 MG TAB PO SCH (11:40)
[2020-06-01] MEDS: levETIRAcetam 500 MG TAB PO SCH (11:41)
[2020-06-01] MEDS: NIFEdipine ER 30 MG TAB PO SCH (11:41)
[2020-06-01] MEDS: hydrOXYchloroQUINE SULFATE 200 MG TAB PO SCH (11:41)
[2020-06-01] MEDS: CALCIUM ACETATE 667 MG CAP PO SCH (11:42)
[2020-06-01] MEDS: PANTOPRAZOLE 40 MG TAB PO SCH (11:42)
[2020-06-01] MEDS: FERROUS SULFATE 325 MG TAB PO SCH (11:42)
--- NOTE | 2020-06-01 15:57 | NUR ---
Assessment Patient is a 54-year-old female. Unable to speak to patient. Assessment was completed with patient sister Sandi . Per Sandi prior to admission patient lived home with her and functioned with assistance. Per Sandi patient has a walker and wheelchair for home use. Sandi is patient caregiver and assist with patient ADL's. Per Sandi patient is on service with [facility] and would like patient to resume service with agency. Sandi will transport patient home. Informed Sandi she has the right to participate in all discharge planning. Sandi verbalized understanding and agreed to discharge plan. Faxed clinical information to [facility] and [facility]. Per Barby with [facility] patient has been accepted and service to start within 24-48hrs upon d/c day. Obtain authorization from [facility] [id number]. Addendum: 06/01/20 at 1604 by CONY MCCOY Amended: Links added. Addendum: 06/01/20 at 1607 by CONY MCCOY Sandi stated patient is on dialysis with [facility] on M, W, F from 3-7pm.
--- NOTE | 2020-06-01 16:59 | NUR ---
Discharge instructions given as ordered. Encourage to follow up with PMD as instructed. All questions and concerns addressed. Patient verbalized understanding. Medication reconciliation form completed and copy given to patient. Home medications held in Pharmacy returned to patient. IV removed from right ac and IJ central line with catheter intact, pressure dressing applied. Telemetry unit returned to ICU. Patient taken to vehicle via wheelchair with all personal belongings, accompanied by staff and family member. No distress noted at time of departure.
== END 2020-06-01 16:45 | disposition home health service (06) | DRG 377 ==
LOC: ER 15:15 → EDBD 15:15 → TELE 15:16 → TELE-CENTR 19:36 → TELE-EAST 05-30 03:00
PROVIDERS: ADMIT Internal Medicine; ATTEND Internal Medicine
PROC: 30233N1 Transfusion of Nonautologous Red Blood Cells into Peripheral Vein, Percutaneous Approach (ICD-10-PCS; principal; 2020-05-26)
PROC: 30233N1 Transfusion of Nonautologous Red Blood Cells into Peripheral Vein, Percutaneous Approach (ICD-10-PCS; 2020-05-27)
PROC: 5A1D70Z Performance of Urinary Filtration, Intermittent, Less than 6 Hours Per Day (ICD-10-PCS; 2020-05-27)
PROC: 05HM33Z Insertion of Infusion Device into Right Internal Jugular Vein, Percutaneous Approach (ICD-10-PCS; 2020-05-27)
PROC: 30233N1 Transfusion of Nonautologous Red Blood Cells into Peripheral Vein, Percutaneous Approach (ICD-10-PCS; 2020-05-28)
PROC: 0DB68ZZ Excision of Stomach, Via Natural or Artificial Opening Endoscopic (ICD-10-PCS; 2020-05-31)
PROC: 0DB78ZX Excision of Stomach, Pylorus, Via Natural or Artificial Opening Endoscopic, Diagnostic (ICD-10-PCS; 2020-05-31)
DX: K62.5 Hemorrhage of anus and rectum (principal); N18.6 End stage renal disease; E43 Unspecified severe protein-calorie malnutrition; I50.30 Unspecified diastolic (congestive) heart failure; I16.9 Hypertensive crisis, unspecified; I13.2 Hypertensive heart and chronic kidney disease with heart failure and with stage 5 chronic kidney disease, or end stage renal disease; D62 Acute posthemorrhagic anemia; K29.70 Gastritis, unspecified, without bleeding; E66.9 Obesity, unspecified; E11.21 Type 2 diabetes mellitus with diabetic nephropathy; Z20.828 Contact with and (suspected) exposure to other viral communicable diseases; E11.649 Type 2 diabetes mellitus with hypoglycemia without coma; M32.9 Systemic lupus erythematosus, unspecified; I16.0 Hypertensive urgency; I10 Essential (primary) hypertension; E83.39 Other disorders of phosphorus metabolism; E11.40 Type 2 diabetes mellitus with diabetic neuropathy, unspecified; E88.09 Other disorders of plasma-protein metabolism, not elsewhere classified; E11.319 Type 2 diabetes mellitus with unspecified diabetic retinopathy without macular edema; G40.909 Epilepsy, unspecified, not intractable, without status epilepticus; I25.119 Atherosclerotic heart disease of native coronary artery with unspecified angina pectoris; E78.5 Hyperlipidemia, unspecified; F31.9 Bipolar disorder, unspecified; I25.10 Atherosclerotic heart disease of native coronary artery without angina pectoris; E11.22 Type 2 diabetes mellitus with diabetic chronic kidney disease; Z80.8 Family history of malignant neoplasm of other organs or systems; Z84.1 Family history of disorders of kidney and ureter; Z99.2 Dependence on renal dialysis; Z82.49 Family history of ischemic heart disease and other diseases of the circulatory system; Z82.3 Family history of stroke; Z95.1 Presence of aortocoronary bypass graft; Z86.73 Personal history of transient ischemic attack (TIA), and cerebral infarction without residual deficits; Z83.3 Family history of diabetes mellitus; Z90.710 Acquired absence of both cervix and uterus; Z80.7 Family history of other malignant neoplasms of lymphoid, hematopoietic and related tissues; Z82.5 Family history of asthma and other chronic lower respiratory diseases; Z88.5 Allergy status to narcotic agent; Z88.8 Allergy status to other drugs, medicaments and biological substances; Z79.899 Other long term (current) drug therapy; Z79.01 Long term (current) use of anticoagulants; Z79.891 Long term (current) use of opiate analgesic; Z79.84 Long term (current) use of oral hypoglycemic drugs; I25.2 Old myocardial infarction
CPT/HCPCS: 36415; 43239; 71045; 78278; 80048; 80053; 82378; 82728; 82962; 83540; 83550; 83880; 84484; 85014; 85018; 85025; 85045; 85610; 85652; 85730; 86141; 86850; 86900; 86901; 86920; 87081; 90935; 93005; 97116; 97530; A9560; C9113; G0378; J0885; J2250; J2405

== ENCOUNTER 2020-06-06 20:17 | Inpatient (IN) | payer OTHER, MEDICAID ==
[~2020-06-06] VITALS: Ht 172.7 cm; Wt 64.7 kg
[~2020-06-06 20:17] MED LIST changes: -DULO60CA90 PO; -FURO1TAB32 PO; -INSLANTI SC; -INSLISPI SC; -LEVO500T21 PO; +SUCR1TAB22 PO; +TRAM50TA2 PO
[2020-06-06] MEDS ORDERED: SODIUM CHLORIDE 0.9% 500 ML IVB ONE (21:00)
[2020-06-06] MEDS ORDERED: ONDANSETRON HCL 4 MG/2 ML VIAL IV ONE (21:00)
[2020-06-06] MEDS ORDERED: MORPHINE SULFATE 4 MG/ML SYR/VIAL IV ONE (21:00)
[2020-06-06] MEDS ORDERED: PANTOPRAZOLE 40 MG/10 ML VIAL INJ IV ONE (22:30)
[2020-06-06] MEDS ORDERED: AZITHROMYCIN 500MG/ 250ML 250 ML IV ONE (22:30)
[2020-06-06] MEDS ORDERED: DexAMETHasone INJECTION 10 MG in D5W 5% 50 ML IV ONE (22:30)
[2020-06-06] MEDS ORDERED: DexAMETHasone SOD PHOS 4 MG/1ML SDV INJ ONE (22:47)
[2020-06-07] VITALS (8 sets, daily range): BP systolic 118–200; BP diastolic 47–78
[2020-06-07 00:40] LABS: Basophils # (auto) 0 10 ^3/uL (0-0.2); Eosinophils # (auto) 0 10 ^3/uL (0-0.8); Lymphocytes # (auto) 0.7 10 ^3/uL (0.4-5.4); Monocytes # (auto) 0.2 10 ^3/uL (0-1.3); Neutrophils # (auto) 1.7 10 ^3/uL (1.6-8.6); Platelet Count (auto) 81 10^3/uL (140-450)
[2020-06-07 00:42] LABS: Basophils % (auto) 0.3 % (0.0-2.0); Hematocrit 19.4 % (36.0-46.0); Lymphocytes % (auto) 26.1 % (10.0-50.0); Mean Corpuscular Hemoglobin 30.2 pg (28.0-32.0); Mean Corpuscular Hgb Conc. 33.2 g/dL (32.0-36.0); Mean Corpuscular Volume 91.1 fL (80.0-100.0); Monocytes % (auto) 8.3 % (0.0-12.0); Neutrophils % (auto) 65.3 % (37.0-80.0); Nucleated Red Blood Cells % 0.1 %; Red Blood Cells 2.13 10^6/uL (4.0-5.20); Red Cell Distribution Width 17.8 % (11.8-14.3); White Blood Cell 2.7 10^3/uL (4.4-10.8)
[2020-06-07 00:47] LABS: Hemoglobin 6.4 g/dL (12.2-16.2)
[2020-06-07 00:59] LABS: INR 0.97 (0.9-1.15); Partial Thromboplastin Time 25.3 sec (23.0-31.2)
[2020-06-07 01:14] LABS: Albumin 1.9 g/dL (3.4-5.0); Calcium 6.5 mg/dL (8.5-10.1); Magnesium 1.9 mg/dL (1.6-2.6)
[2020-06-07 01:23] LABS: BUN/Creatinine Ratio 6.1; Bilirubin, Total 0.3 mg/dL (0.2-1.0)
[2020-06-07] MEDS ORDERED: MORPHINE SULFATE 4 MG/ML SYR/VIAL IV ONE (02:00)
[2020-06-07] MEDS ORDERED: cloNIDine HCL 0.1 MG TAB PO ONE (03:00)
[2020-06-07] MEDS ORDERED: levoFLOXacin 250MG 50 ML IV SCH (05:45)
[2020-06-07] MEDS ORDERED: PANTOPRAZOLE 40mg/50ML NS AE 50 ML IV ONE (05:45)
[2020-06-07] MEDS ORDERED: MORPHINE SULF INJ 2 MG/ML SYRINGE 1ML IV PRN (05:45)
[2020-06-07] MEDS ORDERED: NITROGLYCERIN 0.4 MG SL TAB SL PRN (05:45)
[2020-06-07] MEDS: ALBUTEROL SULF HFA 90MCG INH 200DOSE IN SCH ×3 (06:00→19:19)
[2020-06-07] MEDS: SODIUM CHLORIDE 0.9% 1,000 ML IV SCH (06:00)
[2020-06-07] MEDS ORDERED: hydrALAZINE HCL 20 MG/ML VL ONE (07:05)
[2020-06-07] MEDS: metroNIDAZOLE 500MG/100ML 100 ML IV SCH ×3 (08:30→23:33)
[2020-06-07] MEDS ORDERED: HYDROmorphone HCL 2 MG/ML VL IV ONE (08:45)
[2020-06-07] MEDS: ZINC SULFATE 220mg CAP or TAB PO SCH (09:06)
[2020-06-07] MEDS: CHOLECALCIFEROL (VITD3) 2,000 UNIT CAP PO SCH (09:07)
[2020-06-07] MEDS: ASCORBIC ACID 1,000 MG TAB PO SCH (09:07)
[2020-06-07] MEDS ORDERED: DexAMETHasone SOD PHOS 10MG/1ML VIAL INJ IV SCH (10:00)
[2020-06-07 10:18] LABS: Hematocrit 22.6 % (36.0-46.0); Hemoglobin 7.4 g/dL (12.2-16.2)
[2020-06-07 10:41] LABS: CRP High Sensitivity 2.27 mg/dL (< 0.3); Magnesium 2.1 mg/dL (1.6-2.6)
[2020-06-07] MEDS ORDERED: NIFEdipine ER 30 MG TAB PO ONE (12:15)
[2020-06-07] MEDS: MORPHINE SULF INJ 2 MG/ML SYRINGE 1ML IV SCH (19:06)
[2020-06-07] MEDS: PANTOPRAZOLE 40 MG TAB PO SCH (22:51)
[2020-06-08] VITALS (8 sets, daily range): BP systolic 109–144; BP diastolic 55–75
[2020-06-08] MEDS ORDERED: TEMAZEPAM 15 MG CAP PO ONE (00:30)
[2020-06-08] MEDS: hydrALAZINE HCL 25 MG TAB PO SCH ×2 (00:50→06:10)
[2020-06-08] MEDS: SODIUM CHLORIDE 0.9% 1,000 ML IV SCH ×2 (01:45→21:13)
[2020-06-08] MEDS: MORPHINE SULF INJ 2 MG/ML SYRINGE 1ML IV SCH ×2 (06:11→18:53)
[2020-06-08] MEDS: ALBUTEROL SULF HFA 90MCG INH 200DOSE IN SCH ×3 (06:27→23:24)
[2020-06-08 06:37] LABS: Basophils # (auto) 0 10 ^3/uL (0-0.2); Eosinophils # (auto) 0 10 ^3/uL (0-0.8); Lymphocytes # (auto) 0.4 10 ^3/uL (0.4-5.4); Monocytes # (auto) 0.3 10 ^3/uL (0-1.3); Neutrophils # (auto) 2.9 10 ^3/uL (1.6-8.6); Red Blood Cells 2.05 10^6/uL (4.0-5.20); Red Cell Distribution Width 17.3 % (11.8-14.3); White Blood Cell 3.6 10^3/uL (4.4-10.8)
[2020-06-08 06:39] LABS: Basophils % (auto) 0.4 % (0.0-2.0); Hematocrit 18.8 % (36.0-46.0); Lymphocytes % (auto) 11.2 % (10.0-50.0); Mean Corpuscular Hemoglobin 30.7 pg (28.0-32.0); Mean Corpuscular Hgb Conc. 33.5 g/dL (32.0-36.0); Mean Corpuscular Volume 91.6 fL (80.0-100.0); Monocytes % (auto) 7.6 % (0.0-12.0); Neutrophils % (auto) 80.8 % (37.0-80.0); Nucleated Red Blood Cells % 0.1 %; Platelet Count (auto) 88 10^3/uL (140-450)
[2020-06-08 06:58] LABS: Calcium 6.3 mg/dL (8.5-10.1); Potassium 4.1 mmol/L (3.5-5.1)
[2020-06-08] MEDS ORDERED: SODIUM CHL 0.9% 1000 ML BAG XX ONE (07:00)
[2020-06-08 07:03] LABS: BUN/Creatinine Ratio 6.8; Bilirubin, Total 0.4 mg/dL (0.2-1.0); Total Protein 4.8 g/dL (6.4-8.2)
[2020-06-08 07:08] LABS: Hemoglobin 6.3 g/dL (12.2-16.2)
[2020-06-08] MEDS: metroNIDAZOLE 500MG/100ML 100 ML IV SCH (07:57)
[2020-06-08] MEDS: ONDANSETRON HCL 4 MG/2 ML VIAL IV PRN (07:57)
[2020-06-08] MEDS: NIFEdipine ER 30 MG TAB PO SCH ×2 (09:30→10:00)
[2020-06-08] MEDS: ZINC SULFATE 220mg CAP or TAB PO SCH (10:00)
[2020-06-08] MEDS ORDERED: NIFEdipine ER 30 MG TAB PO SCH (10:00)
[2020-06-08] MEDS: PANTOPRAZOLE 40 MG TAB PO SCH (10:00)
[2020-06-08] MEDS: CHOLECALCIFEROL (VITD3) 2,000 UNIT CAP PO SCH (10:00)
[2020-06-08] MEDS: ASCORBIC ACID 1,000 MG TAB PO SCH (10:00)
[2020-06-08] MEDS: HYDROcodone-ACET 5/325MG TAB PO PRN (12:11)
[2020-06-08] MEDS ORDERED: levETIRAcetam 500 MG TAB PO ONE (12:45)
[2020-06-08] MEDS ORDERED: cefTRIAXone 1GM/50ML D5W 50 ML IV ONE (12:45)
[2020-06-08] MEDS: metroNIDAZOLE 500 MG TAB PO SCH ×2 (14:51→21:12)
[2020-06-08 15:46] LABS: Hematocrit 21.4 % (36.0-46.0); Hemoglobin 7.3 g/dL (12.2-16.2)
[2020-06-08] MEDS: SUCRALFATE 1 GM/10 ML ORAL SUSP PO SCH ×2 (17:24→21:11)
[2020-06-08] MEDS ORDERED: EPOETIN ALFA 10,000 UNIT/1 ML VIAL SC ONE (21:00)
[2020-06-08] MEDS: PANTOPRAZOLE 40 MG/10 ML VIAL INJ IV SCH (21:12)
[2020-06-08] MEDS: levETIRAcetam 500 MG TAB PO SCH (21:13)
[2020-06-09] MEDS: hydrALAZINE HCL 20 MG/ML VL IV PRN ×3 (05:12→23:21)
[2020-06-09] MEDS: MORPHINE SULF INJ 2 MG/ML SYRINGE 1ML IV SCH ×2 (06:28→23:18)
[2020-06-09] MEDS: metroNIDAZOLE 500 MG TAB PO SCH ×3 (06:28→23:19)
[2020-06-09] MEDS: SUCRALFATE 1 GM/10 ML ORAL SUSP PO SCH ×4 (06:28→23:19)
[2020-06-09] MEDS: ALBUTEROL SULF HFA 90MCG INH 200DOSE IN SCH ×3 (06:43→21:52)
[2020-06-09 08:00] LABS: Basophils # (auto) 0 10 ^3/uL (0-0.2); Eosinophils # (auto) 0 10 ^3/uL (0-0.8); Hemoglobin 8.3 g/dL (12.2-16.2); Monocytes # (auto) 0.3 10 ^3/uL (0-1.3); Monocytes % (auto) 8.1 % (0.0-12.0); Neutrophils # (auto) 3.6 10 ^3/uL (1.6-8.6); White Blood Cell 4.1 10^3/uL (4.4-10.8)
[2020-06-09 08:02] LABS: Basophils % (auto) 0.2 % (0.0-2.0); Hematocrit 24.6 % (36.0-46.0); Lymphocytes # (auto) 0.1 10 ^3/uL (0.4-5.4); Lymphocytes % (auto) 3.6 % (10.0-50.0); Mean Corpuscular Hemoglobin 30.3 pg (28.0-32.0); Mean Corpuscular Hgb Conc. 33.6 g/dL (32.0-36.0); Mean Corpuscular Volume 90.3 fL (80.0-100.0); Neutrophils % (auto) 88.1 % (37.0-80.0); Platelet Count (auto) 99 10^3/uL (140-450); Red Blood Cells 2.73 10^6/uL (4.0-5.20); Red Cell Distribution Width 16.5 % (11.8-14.3)
[2020-06-09 09:00] VITALS: BP 194/81
[2020-06-09] MEDS ORDERED: cefTRIAXone 1GM/50ML D5W 50 ML IV SCH (09:00)
[2020-06-09] MEDS: ZINC SULFATE 220mg CAP or TAB PO SCH (09:07)
[2020-06-09] MEDS: PANTOPRAZOLE 40 MG/10 ML VIAL INJ IV SCH ×2 (09:07→23:19)
[2020-06-09] MEDS: levETIRAcetam 500 MG TAB PO SCH ×2 (09:08→23:20)
[2020-06-09] MEDS: NIFEdipine ER 30 MG TAB PO SCH (09:10)
[2020-06-09] MEDS: CHOLECALCIFEROL (VITD3) 2,000 UNIT CAP PO SCH (09:10)
[2020-06-09] MEDS: ASCORBIC ACID 1,000 MG TAB PO SCH (09:10)
[2020-06-09] MEDS: DexAMETHasone SOD PHOS 10MG/1ML VIAL INJ IV SCH (12:18)
[2020-06-09 13:00] VITALS: BP 186/65
[2020-06-09 15:40] LABS: Hematocrit 25.4 % (36.0-46.0); Hemoglobin 8.3 g/dL (12.2-16.2)
[2020-06-09 17:00] VITALS: BP 122/46
[2020-06-09] MEDS: HYDROcodone-ACET 5/325MG TAB PO PRN (17:12)
[2020-06-09 22:00] VITALS: BP 153/69
[2020-06-09] MEDS: ONDANSETRON HCL 4 MG/2 ML VIAL IV PRN (23:20)
[2020-06-10] MEDS: SODIUM CHLORIDE 0.9% 1,000 ML IV SCH (01:15)
[2020-06-10 05:00] VITALS: BP 172/71
[2020-06-10] MEDS: metroNIDAZOLE 500 MG TAB PO SCH (06:14)
[2020-06-10] MEDS: SUCRALFATE 1 GM/10 ML ORAL SUSP PO SCH ×4 (06:15→22:53)
[2020-06-10] MEDS: MORPHINE SULF INJ 2 MG/ML SYRINGE 1ML IV SCH ×2 (06:15→22:51)
[2020-06-10] MEDS: hydrALAZINE HCL 20 MG/ML VL IV PRN ×2 (06:16→18:16)
[2020-06-10] MEDS: ALBUTEROL SULF HFA 90MCG INH 200DOSE IN SCH ×3 (06:23→22:17)
[2020-06-10 07:23] LABS: Hemoglobin 7.9 g/dL (12.2-16.2)
[2020-06-10 07:27] LABS: Hematocrit 24.2 % (36.0-46.0)
[2020-06-10 09:00] VITALS: BP 173/94
[2020-06-10] MEDS: ASCORBIC ACID 1,000 MG TAB PO SCH (09:14)
[2020-06-10] MEDS: PANTOPRAZOLE 40 MG/10 ML VIAL INJ IV SCH ×2 (09:14→22:53)
[2020-06-10] MEDS: ZINC SULFATE 220mg CAP or TAB PO SCH (09:14)
[2020-06-10] MEDS: levETIRAcetam 500 MG TAB PO SCH ×2 (09:14→22:53)
[2020-06-10] MEDS: DexAMETHasone SOD PHOS 10MG/1ML VIAL INJ IV SCH (09:14)
[2020-06-10] MEDS: CHOLECALCIFEROL (VITD3) 2,000 UNIT CAP PO SCH (09:15)
[2020-06-10] MEDS ORDERED: PIPERACILLIN-TAZOB 2.25GM 0.75 GM in D5W 5% 50 ML IV SCH (09:15)
[2020-06-10] MEDS ORDERED: PIPERACILLIN-TAZOB 2.25GM 50 ML IV SCH (10:00)
[2020-06-10 10:13] VITALS: BP 172/71
[2020-06-10] MEDS ORDERED: REMDESIVIR 200 MG in NS 210ml LOADING DOSE ADULT IV ONE ×3 (12:00→16:00)
[2020-06-10 12:54] VITALS: BP 116/74
[2020-06-10] MEDS ORDERED: SODIUM CHL 0.9% 1000 ML BAG XX ONE (13:45)
[2020-06-10] MEDS: NIFEdipine ER 30 MG TAB PO SCH (15:45)
[2020-06-10] MEDS: HYDROcodone-ACET 5/325MG TAB PO PRN (15:51)
[2020-06-10 16:53] VITALS: BP 163/85
[2020-06-10 19:25] LABS: Hemoglobin 7.5 g/dL (12.2-16.2)
[2020-06-10 19:27] LABS: Hematocrit 21.9 % (36.0-46.0)
[2020-06-10] MEDS ORDERED: EPOETIN ALFA 10,000 UNIT/1 ML VIAL SC ONE (21:00)
[2020-06-10 22:00] VITALS: BP 180/73
[2020-06-10] MEDS: PIPERACILLIN-TAZOB 2.25GM 50 ML IV SCH (22:51)
[2020-06-10] MEDS: LORazepam 0.5 MG TAB PO PRN (23:41)
[2020-06-11] VITALS (9 sets, daily range): BP systolic 106–175; BP diastolic 53–79
[2020-06-11] MEDS: hydrALAZINE HCL 20 MG/ML VL IV PRN (01:30)
[2020-06-11] MEDS: HYDROcodone-ACET 5/325MG TAB PO PRN (02:37)
[2020-06-11] MEDS: PIPERACILLIN-TAZOB 2.25GM 50 ML IV SCH ×3 (04:04→22:08)
[2020-06-11] MEDS: SUCRALFATE 1 GM/10 ML ORAL SUSP PO SCH ×4 (05:56→22:08)
[2020-06-11] MEDS: MORPHINE SULF INJ 2 MG/ML SYRINGE 1ML IV SCH ×2 (05:56→18:36)
[2020-06-11] MEDS: ALBUTEROL SULF HFA 90MCG INH 200DOSE IN SCH ×3 (06:47→21:29)
[2020-06-11 07:11] LABS: Basophils # (auto) 0 10 ^3/uL (0-0.2); Basophils % (auto) 0.1 % (0.0-2.0); Eosinophils # (auto) 0 10 ^3/uL (0-0.8); Hemoglobin 7.5 g/dL (12.2-16.2); Lymphocytes # (auto) 0.1 10 ^3/uL (0.4-5.4); Lymphocytes % (auto) 3.2 % (10.0-50.0); Monocytes # (auto) 0.3 10 ^3/uL (0-1.3); Neutrophils # (auto) 4.2 10 ^3/uL (1.6-8.6); Nucleated Red Blood Cells % 0.1 %; Platelet Count (auto) 129 10^3/uL (140-450); White Blood Cell 4.7 10^3/uL (4.4-10.8)
[2020-06-11 07:13] LABS: Mean Corpuscular Hemoglobin 29.6 pg (28.0-32.0); Mean Corpuscular Hgb Conc. 32.7 g/dL (32.0-36.0); Mean Corpuscular Volume 90.8 fL (80.0-100.0); Monocytes % (auto) 7.4 % (0.0-12.0); Neutrophils % (auto) 89.3 % (37.0-80.0); Red Blood Cells 2.53 10^6/uL (4.0-5.20); Red Cell Distribution Width 16.6 % (11.8-14.3)
[2020-06-11 07:28] LABS: BUN/Creatinine Ratio 5.8; Bilirubin, Total 0.4 mg/dL (0.2-1.0); Calcium 6.5 mg/dL (8.5-10.1); Total Protein 5.4 g/dL (6.4-8.2)
[2020-06-11] MEDS: PANTOPRAZOLE 40 MG/10 ML VIAL INJ IV SCH ×2 (09:34→22:08)
[2020-06-11] MEDS: DexAMETHasone SOD PHOS 10MG/1ML VIAL INJ IV SCH (09:34)
[2020-06-11] MEDS: ZINC SULFATE 220mg CAP or TAB PO SCH (09:34)
[2020-06-11] MEDS: levETIRAcetam 500 MG TAB PO SCH ×2 (09:34→22:08)
[2020-06-11] MEDS: ASCORBIC ACID 1,000 MG TAB PO SCH (09:35)
[2020-06-11] MEDS: NIFEdipine ER 30 MG TAB PO SCH (09:35)
[2020-06-11] MEDS: CHOLECALCIFEROL (VITD3) 2,000 UNIT CAP PO SCH (09:36)
[2020-06-11] MEDS: REMDESIVIR 100mg in NS 230ml DAILYx4DAYS (NO VENT) IV SCH (17:00)
[2020-06-11] MEDS: BUDESONIDE (INHALATION) 180 MCG IH IN SCH (21:30)
[2020-06-12] VITALS (12 sets, daily range): BP systolic 112–167; BP diastolic 53–73
[2020-06-12] MEDS: LORazepam 0.5 MG TAB PO PRN ×2 (00:57→14:26)
[2020-06-12] MEDS: HYDROcodone-ACET 5/325MG TAB PO PRN ×2 (00:58→20:53)
[2020-06-12 03:23] LABS: Hematocrit 19.5 % (36.0-46.0)
[2020-06-12 03:47] LABS: Potassium 3.9 mmol/L (3.5-5.1)
[2020-06-12 03:56] LABS: Albumin 1.9 g/dL (3.4-5.0); BUN/Creatinine Ratio 7.2; Bilirubin, Total 0.4 mg/dL (0.2-1.0); Calcium 6.1 mg/dL (8.5-10.1); Total Protein 5.2 g/dL (6.4-8.2)
[2020-06-12 04:10] LABS: Hemoglobin 6.6 g/dL (12.2-16.2)
[2020-06-12] MEDS: PIPERACILLIN-TAZOB 2.25GM 50 ML IV SCH ×3 (04:33→20:54)
[2020-06-12] MEDS: BUDESONIDE (INHALATION) 180 MCG IH IN SCH ×2 (06:13→21:44)
[2020-06-12] MEDS: ALBUTEROL SULF HFA 90MCG INH 200DOSE IN SCH ×3 (06:13→21:44)
[2020-06-12] MEDS: SUCRALFATE 1 GM/10 ML ORAL SUSP PO SCH ×4 (06:37→20:54)
[2020-06-12] MEDS: MORPHINE SULF INJ 2 MG/ML SYRINGE 1ML IV SCH ×2 (06:37→14:25)
[2020-06-12] MEDS: DexAMETHasone SOD PHOS 10MG/1ML VIAL INJ IV SCH (10:15)
[2020-06-12] MEDS: ZINC SULFATE 220mg CAP or TAB PO SCH (10:15)
[2020-06-12] MEDS: levETIRAcetam 500 MG TAB PO SCH ×2 (10:15→20:54)
[2020-06-12] MEDS: PANTOPRAZOLE 40 MG/10 ML VIAL INJ IV SCH ×2 (10:15→20:54)
[2020-06-12] MEDS: ASCORBIC ACID 1,000 MG TAB PO SCH (10:16)
[2020-06-12] MEDS: CHOLECALCIFEROL (VITD3) 2,000 UNIT CAP PO SCH (10:16)
[2020-06-12] MEDS: NIFEdipine ER 30 MG TAB PO SCH (10:16)
[2020-06-12] MEDS: REMDESIVIR 100mg in NS 230ml DAILYx4DAYS (NO VENT) IV SCH (16:38)
[2020-06-13] VITALS (11 sets, daily range): BP systolic 127–208; BP diastolic 51–87
[2020-06-13] MEDS: LORazepam 2MG/ML-1ML VIAL IV PRN (00:42)
[2020-06-13] MEDS: LORazepam 0.5 MG TAB PO PRN ×2 (00:42→14:00)
[2020-06-13 04:04] LABS: Basophils # (auto) 0 10 ^3/uL (0-0.2); Basophils % (auto) 0.1 % (0.0-2.0); Eosinophils # (auto) 0 10 ^3/uL (0-0.8); Lymphocytes # (auto) 0.2 10 ^3/uL (0.4-5.4); Monocytes # (auto) 0.3 10 ^3/uL (0-1.3); White Blood Cell 7.5 10^3/uL (4.4-10.8)
[2020-06-13 04:07] LABS: Hematocrit 20.4 % (36.0-46.0); Lymphocytes % (auto) 2.5 % (10.0-50.0); Mean Corpuscular Hemoglobin 30.1 pg (28.0-32.0); Mean Corpuscular Volume 91.1 fL (80.0-100.0); Monocytes % (auto) 4.4 % (0.0-12.0); Platelet Count (auto) 137 10^3/uL (140-450); Red Blood Cells 2.24 10^6/uL (4.0-5.20)
[2020-06-13 04:29] LABS: Hemoglobin 6.7 g/dL (12.2-16.2)
[2020-06-13 04:31] LABS: Albumin 1.9 g/dL (3.4-5.0); BUN/Creatinine Ratio 7.6; Magnesium 2.1 mg/dL (1.6-2.6); Potassium 3.8 mmol/L (3.5-5.1)
[2020-06-13 04:34] LABS: Bilirubin, Total 0.4 mg/dL (0.2-1.0); Total Protein 5.4 g/dL (6.4-8.2)
[2020-06-13 04:45] LABS: Calcium 5.7 mg/dL (8.5-10.1)
[2020-06-13] MEDS: SUCRALFATE 1 GM/10 ML ORAL SUSP PO SCH ×4 (06:21→21:29)
[2020-06-13] MEDS: PIPERACILLIN-TAZOB 2.25GM 50 ML IV SCH ×3 (06:26→20:33)
[2020-06-13] MEDS: MORPHINE SULF INJ 2 MG/ML SYRINGE 1ML IV SCH (06:43)
[2020-06-13] MEDS: ALBUTEROL SULF HFA 90MCG INH 200DOSE IN SCH ×3 (07:21→21:55)
[2020-06-13] MEDS: BUDESONIDE (INHALATION) 180 MCG IH IN SCH ×2 (07:21→21:55)
[2020-06-13] MEDS: DexAMETHasone SOD PHOS 10MG/1ML VIAL INJ IV SCH (10:00)
[2020-06-13] MEDS: ASCORBIC ACID 1,000 MG TAB PO SCH (10:00)
[2020-06-13] MEDS: levETIRAcetam 500 MG TAB PO SCH ×2 (10:00→21:28)
[2020-06-13] MEDS: ZINC SULFATE 220mg CAP or TAB PO SCH (10:00)
[2020-06-13] MEDS: PANTOPRAZOLE 40 MG/10 ML VIAL INJ IV SCH ×2 (10:00→21:28)
[2020-06-13] MEDS: NIFEdipine ER 30 MG TAB PO SCH (10:00)
[2020-06-13] MEDS: CHOLECALCIFEROL (VITD3) 2,000 UNIT CAP PO SCH (10:00)
[2020-06-13] MEDS ORDERED: SODIUM CHL 0.9% 1000 ML BAG XX ONE (10:30)
[2020-06-13] MEDS: hydrALAZINE HCL 20 MG/ML VL IV PRN (11:18)
[2020-06-13] MEDS: HYDROcodone-ACET 5/325MG TAB PO PRN (11:51)
[2020-06-13] MEDS ORDERED: ACETAMINOPHEN 500 MG TAB PO PRN (12:30)
[2020-06-13] MEDS ORDERED: ENALAPRILAT 1.25 MG/ML-1ML VIAL IV SCH (14:15)
[2020-06-13] MEDS ORDERED: hydrALAZINE HCL 20 MG/ML VL IV ONE (14:15)
[2020-06-13] MEDS: hydrALAZINE HCL 25 MG TAB PO SCH ×2 (17:00→21:28)
[2020-06-13] MEDS: REMDESIVIR 100mg in NS 230ml DAILYx4DAYS (NO VENT) IV SCH (17:08)
[2020-06-13] MEDS: LOSARTAN POTASSIUM 50 MG TAB PO SCH (17:23)
[2020-06-13] MEDS ORDERED: EPOETIN ALFA 10,000 UNIT/1 ML VIAL SC ONE (21:00)
[2020-06-14] MEDS: LORazepam 0.5 MG TAB PO PRN ×3 (01:56→23:57)
[2020-06-14 02:50] VITALS: BP 99/53
[2020-06-14 04:13] VITALS: BP 126/54
[2020-06-14 04:35] LABS: Basophils # (auto) 0 10 ^3/uL (0-0.2); Eosinophils # (auto) 0 10 ^3/uL (0-0.8); Hematocrit 24.4 % (36.0-46.0); Hemoglobin 8.1 g/dL (12.2-16.2); Lymphocytes # (auto) 0.1 10 ^3/uL (0.4-5.4); Lymphocytes % (auto) 1.6 % (10.0-50.0); Mean Corpuscular Hemoglobin 29.7 pg (28.0-32.0); Mean Corpuscular Hgb Conc. 33.4 g/dL (32.0-36.0); Mean Corpuscular Volume 88.9 fL (80.0-100.0); Monocytes # (auto) 0.3 10 ^3/uL (0-1.3); Monocytes % (auto) 3.5 % (0.0-12.0); Neutrophils # (auto) 7.8 10 ^3/uL (1.6-8.6); Neutrophils % (auto) 94.9 % (37.0-80.0); Nucleated Red Blood Cells % 0.2 %; Platelet Count (auto) 131 10^3/uL (140-450); Red Blood Cells 2.74 10^6/uL (4.0-5.20); Red Cell Distribution Width 15.8 % (11.8-14.3); White Blood Cell 8.3 10^3/uL (4.4-10.8)
[2020-06-14 05:04] LABS: Albumin 1.6 g/dL (3.4-5.0); BUN/Creatinine Ratio 8.7; Bilirubin, Total 0.5 mg/dL (0.2-1.0); Potassium 3.4 mmol/L (3.5-5.1); Total Protein 4.9 g/dL (6.4-8.2)
[2020-06-14 05:29] LABS: Calcium 5.4 mg/dL (8.5-10.1)
[2020-06-14] MEDS: hydrALAZINE HCL 25 MG TAB PO SCH ×3 (06:00→23:57)
[2020-06-14] MEDS: ALBUTEROL SULF HFA 90MCG INH 200DOSE IN SCH ×2 (06:09→16:14)
[2020-06-14] MEDS: BUDESONIDE (INHALATION) 180 MCG IH IN SCH (06:09)
[2020-06-14] MEDS: SUCRALFATE 1 GM/10 ML ORAL SUSP PO SCH ×4 (07:00→22:00)
[2020-06-14] MEDS: PIPERACILLIN-TAZOB 2.25GM 50 ML IV SCH ×3 (07:29→22:23)
[2020-06-14] MEDS ORDERED: CALCIUM GLUC 4.65meq/50ml D5AE 50 ML IV ONE ×2 (07:45→08:15)
[2020-06-14 08:00] VITALS: BP 135/59
[2020-06-14] MEDS: DexAMETHasone SOD PHOS 10MG/1ML VIAL INJ IV SCH (08:59)
[2020-06-14] MEDS: PANTOPRAZOLE 40 MG/10 ML VIAL INJ IV SCH ×2 (08:59→22:24)
[2020-06-14] MEDS: levETIRAcetam 500 MG TAB PO SCH ×2 (09:00→23:56)
[2020-06-14] MEDS: LOSARTAN POTASSIUM 50 MG TAB PO SCH (09:00)
[2020-06-14] MEDS: ZINC SULFATE 220mg CAP or TAB PO SCH (09:00)
[2020-06-14] MEDS: NIFEdipine ER 30 MG TAB PO SCH (09:02)
[2020-06-14] MEDS: CHOLECALCIFEROL (VITD3) 2,000 UNIT CAP PO SCH (09:03)
[2020-06-14] MEDS: ASCORBIC ACID 1,000 MG TAB PO SCH (09:03)
[2020-06-14 12:00] VITALS: BP 144/64
[2020-06-14] MEDS ORDERED: HYDROcodone-ACET 5/325MG TAB PO PRN (12:00)
[2020-06-14] MEDS: REMDESIVIR 100mg in NS 230ml DAILYx4DAYS (NO VENT) IV SCH (16:48)
[2020-06-14 20:00] VITALS: BP 144/66
[2020-06-15] VITALS: BP 141/56
[2020-06-15 04:00] VITALS: BP 139/76
[2020-06-15 05:54] LABS: Basophils # (auto) 0 10 ^3/uL (0-0.2); Basophils % (auto) 0.3 % (0.0-2.0); Eosinophils # (auto) 0 10 ^3/uL (0-0.8); Lymphocytes # (auto) 0.2 10 ^3/uL (0.4-5.4); Nucleated Red Blood Cells % 0.2 %
[2020-06-15 05:57] LABS: Hematocrit 25.2 % (36.0-46.0); Hemoglobin 8.4 g/dL (12.2-16.2); Lymphocytes % (auto) 1.8 % (10.0-50.0); Mean Corpuscular Hemoglobin 29.8 pg (28.0-32.0); Mean Corpuscular Hgb Conc. 33.2 g/dL (32.0-36.0); Mean Corpuscular Volume 89.7 fL (80.0-100.0); Monocytes # (auto) 0.3 10 ^3/uL (0-1.3); Monocytes % (auto) 2.8 % (0.0-12.0); Neutrophils # (auto) 8.9 10 ^3/uL (1.6-8.6); Neutrophils % (auto) 95.1 % (37.0-80.0); Platelet Count (auto) 110 10^3/uL (140-450); Red Blood Cells 2.81 10^6/uL (4.0-5.20); White Blood Cell 9.4 10^3/uL (4.4-10.8)
[2020-06-15] MEDS: hydrALAZINE HCL 25 MG TAB PO SCH ×3 (06:00→22:00)
[2020-06-15] MEDS: ALBUTEROL SULF HFA 90MCG INH 200DOSE IN SCH ×4 (06:00→20:15)
[2020-06-15] MEDS: BUDESONIDE (INHALATION) 180 MCG IH IN SCH ×2 (06:11→20:14)
[2020-06-15] MEDS: PIPERACILLIN-TAZOB 2.25GM 50 ML IV SCH ×3 (06:24→20:32)
[2020-06-15] MEDS: SUCRALFATE 1 GM/10 ML ORAL SUSP PO SCH ×4 (07:00→22:00)
[2020-06-15] MEDS ORDERED: SODIUM CHL 0.9% 1000 ML BAG XX ONE (07:00)
[2020-06-15 08:00] VITALS: BP 115/64
[2020-06-15] MEDS: PANTOPRAZOLE 40 MG/10 ML VIAL INJ IV SCH ×2 (09:16→22:00)
[2020-06-15] MEDS: DexAMETHasone SOD PHOS 10MG/1ML VIAL INJ IV SCH (09:16)
[2020-06-15] MEDS: ZINC SULFATE 220mg CAP or TAB PO SCH (09:16)
[2020-06-15] MEDS: NIFEdipine ER 30 MG TAB PO SCH (09:17)
[2020-06-15] MEDS: CHOLECALCIFEROL (VITD3) 2,000 UNIT CAP PO SCH (09:17)
[2020-06-15] MEDS: ASCORBIC ACID 1,000 MG TAB PO SCH (09:17)
[2020-06-15] MEDS: LOSARTAN POTASSIUM 50 MG TAB PO SCH (09:17)
[2020-06-15] MEDS: CITALOPRAM HYDROBR 20 MG TAB PO SCH (09:17)
[2020-06-15] MEDS: levETIRAcetam 500 MG TAB PO SCH ×2 (09:17→22:00)
[2020-06-15 09:19] LABS: BUN/Creatinine Ratio 9.7; Potassium 3.4 mmol/L (3.5-5.1)
[2020-06-15 09:24] LABS: Calcium 5.3 mg/dL (8.5-10.1)
[2020-06-15 12:00] VITALS: BP 164/74
[2020-06-15] MEDS: ONDANSETRON HCL 4 MG/2 ML VIAL IV PRN (15:47)
[2020-06-15 16:00] VITALS: BP 159/67
[2020-06-15] MEDS: hydrALAZINE HCL 20 MG/ML VL IV PRN (16:37)
[2020-06-15] MEDS ORDERED: cloNIDine HCL 0.1 MG TAB ONE (17:30)
[2020-06-15] MEDS: cloNIDine HCL 0.1 MG TAB PO PRN ×2 (17:49→23:21)
[2020-06-15 20:00] VITALS: BP 177/60
[2020-06-15] MEDS ORDERED: EPOETIN ALFA 10,000 UNIT/1 ML VIAL SC ONE (21:00)
[2020-06-16] VITALS (8 sets, daily range): BP systolic 111–199; BP diastolic 49–78
[2020-06-16] MEDS: LORazepam 0.5 MG TAB PO PRN ×2 (03:25→19:51)
[2020-06-16] MEDS: PIPERACILLIN-TAZOB 2.25GM 50 ML IV SCH ×3 (04:00→19:51)
[2020-06-16 04:09] LABS: Basophils # (auto) 0 10 ^3/uL (0-0.2); Eosinophils # (auto) 0 10 ^3/uL (0-0.8); Hemoglobin 7.3 g/dL (12.2-16.2); Lymphocytes # (auto) 0.2 10 ^3/uL (0.4-5.4); Neutrophils # (auto) 6.8 10 ^3/uL (1.6-8.6); Nucleated Red Blood Cells % 0.1 %
[2020-06-16 04:11] LABS: Basophils % (auto) 0.1 % (0.0-2.0); Hematocrit 22.2 % (36.0-46.0); Lymphocytes % (auto) 2.2 % (10.0-50.0); Mean Corpuscular Hemoglobin 30.1 pg (28.0-32.0); Mean Corpuscular Hgb Conc. 32.6 g/dL (32.0-36.0); Mean Corpuscular Volume 92.1 fL (80.0-100.0); Monocytes # (auto) 0.1 10 ^3/uL (0-1.3); Monocytes % (auto) 1.7 % (0.0-12.0); Platelet Count (auto) 98 10^3/uL (140-450); Red Blood Cells 2.41 10^6/uL (4.0-5.20); Red Cell Distribution Width 16.4 % (11.8-14.3); White Blood Cell 7.1 10^3/uL (4.4-10.8)
[2020-06-16 05:21] LABS: BUN/Creatinine Ratio 9.8; Potassium 3.5 mmol/L (3.5-5.1)
[2020-06-16 05:33] LABS: Calcium 5.1 mg/dL (8.5-10.1)
[2020-06-16] MEDS: ALBUTEROL SULF HFA 90MCG INH 200DOSE IN SCH ×3 (05:42→19:45)
[2020-06-16] MEDS: BUDESONIDE (INHALATION) 180 MCG IH IN SCH ×2 (05:42→19:45)
[2020-06-16] MEDS: SUCRALFATE 1 GM/10 ML ORAL SUSP PO SCH ×4 (05:47→21:23)
[2020-06-16] MEDS: cloNIDine HCL 0.1 MG TAB PO PRN (06:05)
[2020-06-16] MEDS: hydrALAZINE HCL 25 MG TAB PO SCH ×3 (07:26→21:22)
[2020-06-16] MEDS: CHOLECALCIFEROL (VITD3) 2,000 UNIT CAP PO SCH (10:00)
[2020-06-16] MEDS: CITALOPRAM HYDROBR 20 MG TAB PO SCH (10:00)
[2020-06-16] MEDS: LOSARTAN POTASSIUM 50 MG TAB PO SCH (10:00)
[2020-06-16] MEDS: ZINC SULFATE 220mg CAP or TAB PO SCH (10:00)
[2020-06-16] MEDS: PANTOPRAZOLE 40 MG/10 ML VIAL INJ IV SCH ×2 (10:00→21:22)
[2020-06-16] MEDS: ASCORBIC ACID 1,000 MG TAB PO SCH (10:00)
[2020-06-16] MEDS: levETIRAcetam 500 MG TAB PO SCH ×2 (10:00→21:23)
[2020-06-16] MEDS: DexAMETHasone SOD PHOS 10MG/1ML VIAL INJ IV SCH (10:00)
[2020-06-16] MEDS: NIFEdipine ER 30 MG TAB PO SCH (10:00)
[2020-06-16 11:16] LABS: INR 1.21 (0.9-1.15)
[2020-06-16] MEDS ORDERED: HEPARIN SODIUM (PORCINE) 5000 UNITS/ML 1ML VIAL ONE (11:44)
[2020-06-16] MEDS ORDERED: hydrALAZINE HCL 20 MG/ML VL IV PRN (12:15)
[2020-06-16] MEDS: MORPHINE SULF INJ 2 MG/ML SYRINGE 1ML IV PRN ×2 (14:58→21:47)
[2020-06-16] MEDS ORDERED: ALBUMIN 25% 100 ML IV PRN (20:15)
[2020-06-17] VITALS (8 sets, daily range): BP systolic 90–129; BP diastolic 48–62
[2020-06-17] MEDS: LORazepam 0.5 MG TAB PO PRN ×2 (03:12→09:06)
[2020-06-17] MEDS: PIPERACILLIN-TAZOB 2.25GM 50 ML IV SCH ×3 (03:32→20:00)
[2020-06-17 03:53] LABS: Basophils # (auto) 0 10 ^3/uL (0-0.2); Basophils % (auto) 0.1 % (0.0-2.0); Eosinophils # (auto) 0 10 ^3/uL (0-0.8); Hematocrit 26.1 % (36.0-46.0); Hemoglobin 8.6 g/dL (12.2-16.2); Lymphocytes # (auto) 0.1 10 ^3/uL (0.4-5.4); Lymphocytes % (auto) 2.1 % (10.0-50.0); Mean Corpuscular Hemoglobin 29.3 pg (28.0-32.0); Mean Corpuscular Hgb Conc. 32.8 g/dL (32.0-36.0); Mean Corpuscular Volume 89.4 fL (80.0-100.0); Monocytes # (auto) 0.1 10 ^3/uL (0-1.3); Monocytes % (auto) 1.9 % (0.0-12.0); Neutrophils # (auto) 5.3 10 ^3/uL (1.6-8.6); Neutrophils % (auto) 95.9 % (37.0-80.0); Nucleated Red Blood Cells % 0.1 %; Platelet Count (auto) 78 10^3/uL (140-450); Red Blood Cells 2.92 10^6/uL (4.0-5.20); Red Cell Distribution Width 15.7 % (11.8-14.3); White Blood Cell 5.5 10^3/uL (4.4-10.8)
[2020-06-17 03:55] LABS: Albumin 1.9 g/dL (3.4-5.0); Potassium 3.3 mmol/L (3.5-5.1)
[2020-06-17 04:00] LABS: BUN/Creatinine Ratio 9.7; Bilirubin, Total 0.5 mg/dL (0.2-1.0); Total Protein 5.3 g/dL (6.4-8.2)
[2020-06-17 04:11] LABS: Calcium 5.2 mg/dL (8.5-10.1)
[2020-06-17] MEDS: hydrALAZINE HCL 25 MG TAB PO SCH ×3 (05:29→22:00)
[2020-06-17] MEDS: SUCRALFATE 1 GM/10 ML ORAL SUSP PO SCH ×4 (05:30→22:00)
[2020-06-17] MEDS: ALBUTEROL SULF HFA 90MCG INH 200DOSE IN SCH ×3 (06:00→21:47)
[2020-06-17] MEDS: DexAMETHasone SOD PHOS 10MG/1ML VIAL INJ IV SCH (08:46)
[2020-06-17] MEDS: PANTOPRAZOLE 40 MG/10 ML VIAL INJ IV SCH ×2 (08:47→22:00)
[2020-06-17] MEDS: CITALOPRAM HYDROBR 20 MG TAB PO SCH ×2 (08:47→21:15)
[2020-06-17] MEDS: ASCORBIC ACID 1,000 MG TAB PO SCH (08:47)
[2020-06-17] MEDS: levETIRAcetam 500 MG TAB PO SCH ×2 (08:47→22:00)
[2020-06-17] MEDS: ZINC SULFATE 220mg CAP or TAB PO SCH (08:48)
[2020-06-17] MEDS: CHOLECALCIFEROL (VITD3) 2,000 UNIT CAP PO SCH (08:50)
[2020-06-17] MEDS: NIFEdipine ER 30 MG TAB PO SCH (10:00)
[2020-06-17] MEDS: LOSARTAN POTASSIUM 50 MG TAB PO SCH (10:00)
[2020-06-17] MEDS: BUDESONIDE (INHALATION) 180 MCG IH IN SCH ×2 (10:00→21:47)
[2020-06-17] MEDS: MORPHINE SULF INJ 2 MG/ML SYRINGE 1ML IV PRN (13:45)
[2020-06-17] MEDS ORDERED: METOPROLOL SUCCINATE XL 50 MG TAB PO ONE ×2 (16:00→16:15)
[2020-06-17] MEDS ORDERED: POTASSIUM CHL 20 Meq TABLET PO ONE (16:00)
[2020-06-17] MEDS ORDERED: hydrALAZINE HCL 20 MG/ML VL IV PRN (16:15)
[2020-06-18] VITALS (10 sets, daily range): BP systolic 102–156; BP diastolic 51–75
[2020-06-18] MEDS: LORazepam 2MG/ML-1ML VIAL IV PRN (00:58)
[2020-06-18] MEDS: PIPERACILLIN-TAZOB 2.25GM 50 ML IV SCH ×3 (04:00→20:00)
[2020-06-18] MEDS: hydrALAZINE HCL 25 MG TAB PO SCH ×3 (05:00→22:00)
[2020-06-18] MEDS: ALBUTEROL SULF HFA 90MCG INH 200DOSE IN SCH ×3 (06:00→22:00)
[2020-06-18] MEDS: SUCRALFATE 1 GM/10 ML ORAL SUSP PO SCH ×4 (07:00→22:00)
[2020-06-18 07:04] LABS: Basophils # (auto) 0.1 10 ^3/uL (0-0.2); Basophils % (auto) 1.1 % (0.0-2.0); Eosinophils # (auto) 0 10 ^3/uL (0-0.8); Hematocrit 23.2 % (36.0-46.0); Hemoglobin 7.7 g/dL (12.2-16.2); Lymphocytes # (auto) 0.1 10 ^3/uL (0.4-5.4); Lymphocytes % (auto) 1.3 % (10.0-50.0); Mean Corpuscular Hemoglobin 29.6 pg (28.0-32.0); Mean Corpuscular Hgb Conc. 33.2 g/dL (32.0-36.0); Mean Corpuscular Volume 89.3 fL (80.0-100.0); Monocytes # (auto) 0.2 10 ^3/uL (0-1.3); Monocytes % (auto) 1.9 % (0.0-12.0); Neutrophils # (auto) 10.2 10 ^3/uL (1.6-8.6); Neutrophils % (auto) 95.7 % (37.0-80.0); Nucleated Red Blood Cells % 0.5 %; Platelet Count (auto) 114 10^3/uL (140-450); Red Cell Distribution Width 16.2 % (11.8-14.3); White Blood Cell 10.7 10^3/uL (4.4-10.8)
[2020-06-18 07:23] LABS: INR 1.17 (0.9-1.15); Partial Thromboplastin Time 34.2 sec (23.0-31.2)
[2020-06-18 07:28] LABS: Albumin 1.7 g/dL (3.4-5.0); BUN/Creatinine Ratio 9.6; Magnesium 2.1 mg/dL (1.6-2.6); Phosphorus 4.1 mg/dL (2.5-4.90)
[2020-06-18 07:31] LABS: Bilirubin, Total 0.4 mg/dL (0.2-1.0); Total Protein 5.6 g/dL (6.4-8.2)
[2020-06-18 07:32] LABS: Calcium 5.3 mg/dL (8.5-10.1)
[2020-06-18] MEDS: BUDESONIDE (INHALATION) 180 MCG IH IN SCH ×2 (07:50→22:00)
[2020-06-18] MEDS ORDERED: METOPROLOL SUCCINATE XL 50 MG TAB PO SCH (10:00)
[2020-06-18] MEDS: CHOLECALCIFEROL (VITD3) 2,000 UNIT CAP PO SCH (10:08)
[2020-06-18] MEDS: METOPROLOL SUCCINATE XL 50 MG TAB PO SCH (10:10)
[2020-06-18] MEDS: PANTOPRAZOLE 40 MG/10 ML VIAL INJ IV SCH ×2 (10:10→22:00)
[2020-06-18] MEDS: DexAMETHasone SOD PHOS 10MG/1ML VIAL INJ IV SCH (10:11)
[2020-06-18] MEDS: CITALOPRAM HYDROBR 20 MG TAB PO SCH (10:11)
[2020-06-18] MEDS: LOSARTAN POTASSIUM 50 MG TAB PO SCH (10:12)
[2020-06-18] MEDS: ZINC SULFATE 220mg CAP or TAB PO SCH (10:12)
[2020-06-18] MEDS: NIFEdipine ER 30 MG TAB PO SCH (10:13)
[2020-06-18] MEDS: levETIRAcetam 500 MG TAB PO SCH ×2 (10:13→22:00)
[2020-06-18] MEDS: ASCORBIC ACID 1,000 MG TAB PO SCH (10:13)
[2020-06-18] MEDS ORDERED: CALCIUM GLUC 4.65meq/50ml D5AE 50 ML IV SCH (12:30)
[2020-06-18] MEDS ORDERED: D5W 5% IV ONE (13:45)
[2020-06-18] MEDS ORDERED: CALCIUM GLUC IV ONE (13:45)
[2020-06-19] VITALS (12 sets, daily range): BP systolic 98–145; BP diastolic 45–70
[2020-06-19] MEDS: PIPERACILLIN-TAZOB 2.25GM 50 ML IV SCH ×3 (03:58→22:41)
[2020-06-19] MEDS: ALBUTEROL SULF HFA 90MCG INH 200DOSE IN SCH ×3 (05:33→22:13)
[2020-06-19] MEDS: BUDESONIDE (INHALATION) 180 MCG IH IN SCH ×2 (05:33→22:13)
[2020-06-19] MEDS: hydrALAZINE HCL 25 MG TAB PO SCH ×3 (05:46→22:00)
[2020-06-19] MEDS: SUCRALFATE 1 GM/10 ML ORAL SUSP PO SCH ×4 (06:32→22:00)
[2020-06-19 08:40] LABS: Basophils # (auto) 0 10 ^3/uL (0-0.2); Eosinophils # (auto) 0 10 ^3/uL (0-0.8); Hemoglobin 8.2 g/dL (12.2-16.2); Lymphocytes # (auto) 0.1 10 ^3/uL (0.4-5.4); Monocytes # (auto) 0.2 10 ^3/uL (0-1.3); Monocytes % (auto) 1.9 % (0.0-12.0); Neutrophils # (auto) 7.8 10 ^3/uL (1.6-8.6); Red Cell Distribution Width 16.5 % (11.8-14.3); White Blood Cell 8.1 10^3/uL (4.4-10.8)
[2020-06-19 08:42] LABS: Basophils % (auto) 0.5 % (0.0-2.0); Hematocrit 25.4 % (36.0-46.0); Lymphocytes % (auto) 1.8 % (10.0-50.0); Mean Corpuscular Hemoglobin 28.9 pg (28.0-32.0); Mean Corpuscular Hgb Conc. 32.3 g/dL (32.0-36.0); Mean Corpuscular Volume 89.4 fL (80.0-100.0); Neutrophils % (auto) 95.8 % (37.0-80.0); Nucleated Red Blood Cells % 0.1 %; Platelet Count (auto) 144 10^3/uL (140-450); Red Blood Cells 2.84 10^6/uL (4.0-5.20)
[2020-06-19 08:52] LABS: INR 1.13 (0.9-1.15); Partial Thromboplastin Time 35.3 sec (23.0-31.2)
[2020-06-19 09:02] LABS: Albumin 1.6 g/dL (3.4-5.0); Magnesium 2.4 mg/dL (1.6-2.6); Potassium 4.6 mmol/L (3.5-5.1)
[2020-06-19 09:05] LABS: BUN/Creatinine Ratio 10.7; Bilirubin, Total 0.5 mg/dL (0.2-1.0); Total Protein 5.8 g/dL (6.4-8.2)
[2020-06-19 09:48] LABS: Calcium 5.6 mg/dL (8.5-10.1)
[2020-06-19] MEDS ORDERED: CALCITRIOL 1 MCG/ML AMPULE IV SCH (10:00)
[2020-06-19] MEDS: ZINC SULFATE 220mg CAP or TAB PO SCH ×2 (10:00→10:03)
[2020-06-19] MEDS: LOSARTAN POTASSIUM 50 MG TAB PO SCH (10:00)
[2020-06-19] MEDS: METOPROLOL SUCCINATE XL 50 MG TAB PO SCH (10:00)
[2020-06-19] MEDS: ASCORBIC ACID 1,000 MG TAB PO SCH ×2 (10:00→10:05)
[2020-06-19] MEDS: NIFEdipine ER 30 MG TAB PO SCH (10:00)
[2020-06-19] MEDS: DexAMETHasone SOD PHOS 10MG/1ML VIAL INJ IV SCH (10:02)
[2020-06-19] MEDS: PANTOPRAZOLE 40 MG/10 ML VIAL INJ IV SCH ×2 (10:02→22:41)
[2020-06-19] MEDS: CITALOPRAM HYDROBR 20 MG TAB PO SCH (10:03)
[2020-06-19] MEDS: levETIRAcetam 500 MG TAB PO SCH ×2 (10:05→22:00)
[2020-06-19] MEDS: CHOLECALCIFEROL (VITD3) 2,000 UNIT CAP PO SCH ×2 (10:05→10:20)
[2020-06-19] MEDS: ENOXAPARIN SOD 40 MG/0.4 ML SYRINGE SC SCH (22:45)
[2020-06-20] VITALS (11 sets, daily range): BP systolic 111–175; BP diastolic 47–59
[2020-06-20] MEDS: PIPERACILLIN-TAZOB 2.25GM 50 ML IV SCH ×3 (04:00→21:58)
[2020-06-20] MEDS: BUDESONIDE (INHALATION) 180 MCG IH IN SCH ×2 (05:58→22:00)
[2020-06-20] MEDS: ALBUTEROL SULF HFA 90MCG INH 200DOSE IN SCH ×3 (05:58→22:00)
[2020-06-20] MEDS: hydrALAZINE HCL 25 MG TAB PO SCH ×3 (06:00→22:00)
[2020-06-20 06:05] LABS: Basophils # (auto) 0.1 10 ^3/uL (0-0.2); Basophils % (auto) 0.7 % (0.0-2.0); Eosinophils # (auto) 0 10 ^3/uL (0-0.8); Hematocrit 26.5 % (36.0-46.0); Hemoglobin 8.8 g/dL (12.2-16.2); Lymphocytes # (auto) 0.2 10 ^3/uL (0.4-5.4); Lymphocytes % (auto) 1.6 % (10.0-50.0); Mean Corpuscular Hemoglobin 29.6 pg (28.0-32.0); Mean Corpuscular Hgb Conc. 33.1 g/dL (32.0-36.0); Mean Corpuscular Volume 89.2 fL (80.0-100.0); Monocytes # (auto) 0.1 10 ^3/uL (0-1.3); Monocytes % (auto) 1.1 % (0.0-12.0); Neutrophils # (auto) 10.2 10 ^3/uL (1.6-8.6); Neutrophils % (auto) 96.6 % (37.0-80.0); Nucleated Red Blood Cells % 0.1 %; Platelet Count (auto) 188 10^3/uL (140-450); Red Blood Cells 2.97 10^6/uL (4.0-5.20); Red Cell Distribution Width 16.6 % (11.8-14.3); White Blood Cell 10.6 10^3/uL (4.4-10.8)
[2020-06-20 06:15] LABS: BUN/Creatinine Ratio 11.2; Potassium 4.6 mmol/L (3.5-5.1)
[2020-06-20 06:34] LABS: Calcium 5.5 mg/dL (8.5-10.1)
[2020-06-20] MEDS: SUCRALFATE 1 GM/10 ML ORAL SUSP PO SCH ×4 (07:00→21:59)
[2020-06-20] MEDS: CITALOPRAM HYDROBR 20 MG TAB PO SCH (10:00)
[2020-06-20] MEDS: ASCORBIC ACID 1,000 MG TAB PO SCH (10:00)
[2020-06-20] MEDS: ZINC SULFATE 220mg CAP or TAB PO SCH (10:00)
[2020-06-20] MEDS: CALCITRIOL 0.25 MCG CAP PO SCH (10:00)
[2020-06-20] MEDS: CHOLECALCIFEROL (VITD3) 2,000 UNIT CAP PO SCH (10:00)
[2020-06-20] MEDS: NIFEdipine ER 30 MG TAB PO SCH (10:30)
[2020-06-20] MEDS ORDERED: diphenhdrAMINE HCL 50 MG/1 ML VL IV ONE (11:15)
[2020-06-20] MEDS ORDERED: diphenhdrAMINE HCL 50 MG/1 ML VL ONE (11:17)
[2020-06-20] MEDS: ALBUMIN 25% 100 ML IV SCH ×2 (11:32→13:00)
[2020-06-20] MEDS: PANTOPRAZOLE 40 MG/10 ML VIAL INJ IV SCH ×2 (13:42→22:01)
[2020-06-20] MEDS: DexAMETHasone SOD PHOS 10MG/1ML VIAL INJ IV SCH (13:42)
[2020-06-20] MEDS: ENOXAPARIN SOD 40 MG/0.4 ML SYRINGE SC SCH ×2 (14:53→21:59)
[2020-06-20] MEDS ORDERED: EPOETIN ALFA 10,000 UNIT/1 ML VIAL SC ONE (21:00)
[2020-06-20] MEDS: MORPHINE SULF INJ 2 MG/ML SYRINGE 1ML IV PRN (22:00)
[2020-06-20] MEDS: hydrALAZINE HCL 20 MG/ML VL IV PRN (22:01)
[2020-06-21] VITALS (11 sets, daily range): BP systolic 134–190; BP diastolic 55–119
[2020-06-21] MEDS: hydrALAZINE HCL 20 MG/ML VL IV PRN ×2 (02:07→11:55)
[2020-06-21] MEDS: MORPHINE SULF INJ 2 MG/ML SYRINGE 1ML IV PRN (04:00)
[2020-06-21] MEDS: PIPERACILLIN-TAZOB 2.25GM 50 ML IV SCH (04:03)
[2020-06-21] MEDS: ALBUTEROL SULF HFA 90MCG INH 200DOSE IN SCH (05:57)
[2020-06-21] MEDS: BUDESONIDE (INHALATION) 180 MCG IH IN SCH (05:57)
[2020-06-21] MEDS: hydrALAZINE HCL 25 MG TAB PO SCH ×3 (06:00→20:23)
[2020-06-21] MEDS: SUCRALFATE 1 GM/10 ML ORAL SUSP PO SCH ×4 (06:47→20:22)
[2020-06-21 07:19] LABS: Hematocrit 34.1 % (36.0-46.0); Hemoglobin 11.1 g/dL (12.2-16.2); Mean Corpuscular Hemoglobin 28.8 pg (28.0-32.0); Mean Corpuscular Hgb Conc. 32.4 g/dL (32.0-36.0); Mean Corpuscular Volume 88.7 fL (80.0-100.0); Platelet Count (auto) 121 10^3/uL (140-450); Red Blood Cells 3.85 10^6/uL (4.0-5.20); Red Cell Distribution Width 16.4 % (11.8-14.3); White Blood Cell 6.3 10^3/uL (4.4-10.8)
[2020-06-21 07:40] LABS: Basophils % (manual) 0 (0.0-2.0); Eosinophils % (manual) 0 (0-7); Metamyelocytes % 0; Myelocytes % 0; Promyelocytes % 0
[2020-06-21 07:41] LABS: Blast Cells 0; Reactive Lymphocytes 0
[2020-06-21 07:47] LABS: BUN/Creatinine Ratio 9.8; Calcium 6.2 mg/dL (8.5-10.1)
[2020-06-21] MEDS ORDERED: CALCIUM GLUC 4.65meq/50ml D5AE 50 ML IV ONE (10:15)
[2020-06-21] MEDS: ENOXAPARIN SOD 40 MG/0.4 ML SYRINGE SC SCH ×2 (11:15→20:22)
[2020-06-21] MEDS: DexAMETHasone SOD PHOS 10MG/1ML VIAL INJ IV SCH (11:15)
[2020-06-21] MEDS: PANTOPRAZOLE 40 MG/10 ML VIAL INJ IV SCH ×2 (11:15→20:22)
[2020-06-21] MEDS: CHOLECALCIFEROL (VITD3) 2,000 UNIT CAP PO SCH (11:16)
[2020-06-21] MEDS: ZINC SULFATE 220mg CAP or TAB PO SCH (11:18)
[2020-06-21] MEDS: ASCORBIC ACID 1,000 MG TAB PO SCH (11:18)
[2020-06-21] MEDS: NIFEdipine ER 30 MG TAB PO SCH (11:18)
[2020-06-21] MEDS: CITALOPRAM HYDROBR 20 MG TAB PO SCH (11:18)
[2020-06-21 13:38] LABS: Band Neutrophils % (manual) 6; Lymphocytes % (manual) 2 (10.0-50.0); Monocytes % (manual) 2 (0-12)
[2020-06-21] MEDS: ALBUTEROL SULF 2.5 MG/0.5ML(0.5%) NEB SOLN NEB SCH ×2 (13:42→22:55)
[2020-06-21] MEDS: CALCITRIOL 0.25 MCG CAP PO SCH (14:15)
[2020-06-21] MEDS ORDERED: TPN PER PHARMACY 0 ML IV SCH (17:00)
[2020-06-21] MEDS ORDERED: DEXTROSE (50%) 50ML SYRG IV SCH (18:00)
[2020-06-21] MEDS: InsuLIN REG 1unit/0.01ml Soln (100units/ml) SC SCH (18:48)
[2020-06-21] MEDS: ACCU-CHEK COMFORT CURVE STRIP VI SCH (18:49)
[2020-06-21] MEDS ORDERED: AMINO ACID INFUSION IN D5W 2,000 ML IV NR (20:00)
[2020-06-21] MEDS: BUDESONIDE (INHALATION) 0.5 MG/2 ML NEB NEB SCH (22:55)
[2020-06-22] VITALS (22 sets, daily range): BP systolic 111–178; BP diastolic 46–72
[2020-06-22] MEDS: ACCU-CHEK COMFORT CURVE STRIP VI SCH ×5 (00:02→23:58)
[2020-06-22] MEDS: InsuLIN REG 1unit/0.01ml Soln (100units/ml) SC SCH ×4 (00:03→18:21)
[2020-06-22] MEDS: MORPHINE SULF INJ 2 MG/ML SYRINGE 1ML IV PRN ×2 (02:05→22:02)
[2020-06-22] MEDS: SUCRALFATE 1 GM/10 ML ORAL SUSP PO SCH ×4 (05:04→21:59)
[2020-06-22] MEDS: hydrALAZINE HCL 25 MG TAB PO SCH ×3 (05:04→21:59)
[2020-06-22] MEDS: BUDESONIDE (INHALATION) 0.5 MG/2 ML NEB NEB SCH ×2 (06:05→21:56)
[2020-06-22] MEDS: ALBUTEROL SULF 2.5 MG/0.5ML(0.5%) NEB SOLN NEB SCH ×3 (06:05→21:56)
[2020-06-22 06:07] LABS: Basophils # (auto) 0 10 ^3/uL (0-0.2); Eosinophils # (auto) 0 10 ^3/uL (0-0.8); Hematocrit 19.9 % (36.0-46.0); Monocytes # (auto) 0.1 10 ^3/uL (0-1.3); Platelet Count (auto) 112 10^3/uL (140-450); Red Blood Cells 2.26 10^6/uL (4.0-5.20); Red Cell Distribution Width 16.4 % (11.8-14.3)
[2020-06-22 06:11] LABS: Basophils % (auto) 0.2 % (0.0-2.0); Lymphocytes # (auto) 0.2 10 ^3/uL (0.4-5.4); Lymphocytes % (auto) 2.6 % (10.0-50.0); Mean Corpuscular Hemoglobin 30.6 pg (28.0-32.0); Mean Corpuscular Hgb Conc. 34.8 g/dL (32.0-36.0); Mean Corpuscular Volume 88.1 fL (80.0-100.0); Monocytes % (auto) 1.6 % (0.0-12.0); Neutrophils # (auto) 6.2 10 ^3/uL (1.6-8.6); Neutrophils % (auto) 95.6 % (37.0-80.0); Nucleated Red Blood Cells % 0.1 %; White Blood Cell 6.5 10^3/uL (4.4-10.8)
[2020-06-22 06:18] LABS: Hemoglobin 6.9 g/dL (12.2-16.2)
[2020-06-22 06:49] LABS: Albumin 2.2 g/dL (3.4-5.0); BUN/Creatinine Ratio 10.5; Bilirubin, Total 0.5 mg/dL (0.2-1.0); Magnesium 2.4 mg/dL (1.6-2.6); Phosphorus 4.2 mg/dL (2.5-4.90); Pre Albumin 13.2 mg/dL (20.0-40.0); Total Protein 6.4 g/dL (6.4-8.2)
[2020-06-22 06:54] LABS: Calcium 5.7 mg/dL (8.5-10.1)
[2020-06-22] MEDS ORDERED: SODIUM CHL 0.9% 1000 ML BAG XX ONE (07:00)
[2020-06-22] MEDS: NIFEdipine ER 30 MG TAB PO SCH (07:27)
[2020-06-22] MEDS: ZINC SULFATE 220mg CAP or TAB PO SCH (07:32)
[2020-06-22] MEDS: LORazepam 0.5 MG TAB PO PRN ×2 (07:32→13:21)
[2020-06-22] MEDS: ASCORBIC ACID 1,000 MG TAB PO SCH (07:32)
[2020-06-22] MEDS: CHOLECALCIFEROL (VITD3) 2,000 UNIT CAP PO SCH (07:32)
[2020-06-22] MEDS: CALCITRIOL 0.25 MCG CAP PO SCH (07:34)
[2020-06-22] MEDS: DexAMETHasone SOD PHOS 10MG/1ML VIAL INJ IV SCH (09:30)
[2020-06-22] MEDS: PANTOPRAZOLE 40 MG/10 ML VIAL INJ IV SCH ×2 (09:30→22:00)
[2020-06-22 11:08] LABS: Hematocrit 25.3 % (36.0-46.0); Hemoglobin 8.3 g/dL (12.2-16.2)
[2020-06-22] MEDS: ENOXAPARIN SOD 40 MG/0.4 ML SYRINGE SC SCH ×2 (11:16→21:59)
[2020-06-22] MEDS: hydrALAZINE HCL 20 MG/ML VL IV PRN ×3 (11:20→22:01)
[2020-06-22] MEDS ORDERED: TPN PER PHARMACY IV NR ×7 (20:00)
[2020-06-23] VITALS (23 sets, daily range): BP systolic 125–224; BP diastolic 43–107
[2020-06-23] MEDS: InsuLIN REG 1unit/0.01ml Soln (100units/ml) SC SCH ×5 (00:42→23:52)
[2020-06-23] MEDS: hydrALAZINE HCL 20 MG/ML VL IV PRN ×2 (05:46→19:39)
[2020-06-23] MEDS: MORPHINE SULF INJ 2 MG/ML SYRINGE 1ML IV PRN (05:46)
[2020-06-23] MEDS: BUDESONIDE (INHALATION) 0.5 MG/2 ML NEB NEB SCH (05:59)
[2020-06-23] MEDS: ALBUTEROL SULF 2.5 MG/0.5ML(0.5%) NEB SOLN NEB SCH ×2 (05:59→13:37)
[2020-06-23] MEDS: SUCRALFATE 1 GM/10 ML ORAL SUSP PO SCH ×4 (07:00→21:15)
[2020-06-23 07:59] LABS: Eosinophils # (auto) 0 10 ^3/uL (0-0.8); Lymphocytes # (auto) 0.2 10 ^3/uL (0.4-5.4); Mean Corpuscular Volume 89.3 fL (80.0-100.0); Monocytes # (auto) 0.1 10 ^3/uL (0-1.3); Red Cell Distribution Width 16.4 % (11.8-14.3)
[2020-06-23] MEDS: hydrALAZINE HCL 25 MG TAB PO SCH ×3 (07:59→21:15)
[2020-06-23] MEDS: ACCU-CHEK COMFORT CURVE STRIP VI SCH ×4 (08:00→23:50)
[2020-06-23 08:01] LABS: Basophils # (auto) 0.1 10 ^3/uL (0-0.2); Basophils % (auto) 0.9 % (0.0-2.0); Hematocrit 21.4 % (36.0-46.0); Lymphocytes % (auto) 1.6 % (10.0-50.0); Mean Corpuscular Hemoglobin 28.4 pg (28.0-32.0); Mean Corpuscular Hgb Conc. 31.8 g/dL (32.0-36.0); Monocytes % (auto) 1.1 % (0.0-12.0); Neutrophils # (auto) 12.9 10 ^3/uL (1.6-8.6); Neutrophils % (auto) 96.4 % (37.0-80.0); Nucleated Red Blood Cells % 0.2 %; Platelet Count (auto) 137 10^3/uL (140-450); White Blood Cell 13.4 10^3/uL (4.4-10.8)
[2020-06-23 08:03] LABS: Hemoglobin 6.8 g/dL (12.2-16.2)
[2020-06-23 08:21] LABS: Potassium 3.7 mmol/L (3.5-5.1)
[2020-06-23 08:30] LABS: Albumin 2.3 g/dL (3.4-5.0); BUN/Creatinine Ratio 11.7; Bilirubin, Total 0.6 mg/dL (0.2-1.0); Calcium 6.3 mg/dL (8.5-10.1); Magnesium 2.2 mg/dL (1.6-2.6); Phosphorus 1.9 mg/dL (2.5-4.90); Total Protein 6.8 g/dL (6.4-8.2)
[2020-06-23] MEDS: LORazepam 0.5 MG TAB PO PRN ×2 (08:55→21:17)
[2020-06-23] MEDS: PANTOPRAZOLE 40 MG/10 ML VIAL INJ IV SCH ×2 (10:21→21:14)
[2020-06-23] MEDS: ENOXAPARIN SOD 40 MG/0.4 ML SYRINGE SC SCH ×2 (10:21→21:15)
[2020-06-23] MEDS: ASCORBIC ACID 1,000 MG TAB PO SCH (10:22)
[2020-06-23] MEDS: CALCITRIOL 0.25 MCG CAP PO SCH (10:22)
[2020-06-23] MEDS: DexAMETHasone SOD PHOS 10MG/1ML VIAL INJ IV SCH (10:22)
[2020-06-23] MEDS: CHOLECALCIFEROL (VITD3) 2,000 UNIT CAP PO SCH (10:23)
[2020-06-23] MEDS: ZINC SULFATE 220mg CAP or TAB PO SCH (10:23)
[2020-06-23] MEDS: CITALOPRAM HYDROBR 20 MG TAB PO SCH (10:23)
[2020-06-23] MEDS: NIFEdipine ER 30 MG TAB PO SCH (10:23)
[2020-06-23] MEDS ORDERED: LABETALOL HCL 5 MG/ML 4ML SYRINGE IV PRN (12:15)
[2020-06-23] MEDS ORDERED: MEROPENEM 500MG IVPB 50 ML IV ONE (12:30)
[2020-06-23] MEDS ORDERED: LABETALOL HCL 5 MG/ML ML 20ML VIAL IV ONE (12:45)
[2020-06-23] MEDS ORDERED: TPN PER PHARMACY IV NR ×10 (20:00)
[2020-06-24] VITALS (19 sets, daily range): BP systolic 126–149; BP diastolic 46–72
[2020-06-24 04:40] LABS: Calcium 6.3 mg/dL (8.5-10.1); Potassium 3.4 mmol/L (3.5-5.1)
[2020-06-24 04:57] LABS: Basophils # (auto) 0.1 10 ^3/uL (0-0.2); Basophils % (auto) 0.5 % (0.0-2.0); Eosinophils # (auto) 0 10 ^3/uL (0-0.8); Hematocrit 24.1 % (36.0-46.0); Hemoglobin 7.8 g/dL (12.2-16.2); Lymphocytes # (auto) 0.2 10 ^3/uL (0.4-5.4); Lymphocytes % (auto) 1.6 % (10.0-50.0); Mean Corpuscular Hemoglobin 28.4 pg (28.0-32.0); Mean Corpuscular Hgb Conc. 32.5 g/dL (32.0-36.0); Mean Corpuscular Volume 87.4 fL (80.0-100.0); Monocytes # (auto) 0.2 10 ^3/uL (0-1.3); Monocytes % (auto) 1.7 % (0.0-12.0); Neutrophils # (auto) 9.5 10 ^3/uL (1.6-8.6); Neutrophils % (auto) 96.2 % (37.0-80.0); Nucleated Red Blood Cells % 0.3 %; Platelet Count (auto) 90 10^3/uL (140-450); Red Blood Cells 2.76 10^6/uL (4.0-5.20); Red Cell Distribution Width 16.7 % (11.8-14.3); White Blood Cell 9.9 10^3/uL (4.4-10.8)
[2020-06-24] MEDS: ACCU-CHEK COMFORT CURVE STRIP VI SCH ×3 (05:27→17:12)
[2020-06-24] MEDS: InsuLIN REG 1unit/0.01ml Soln (100units/ml) SC SCH ×3 (05:27→19:20)
[2020-06-24] MEDS: hydrALAZINE HCL 25 MG TAB PO SCH ×3 (05:30→20:10)
[2020-06-24] MEDS: SUCRALFATE 1 GM/10 ML ORAL SUSP PO SCH ×4 (05:30→20:10)
[2020-06-24] MEDS: BUDESONIDE (INHALATION) 0.5 MG/2 ML NEB NEB SCH ×3 (05:57→14:15)
[2020-06-24] MEDS: ALBUTEROL SULF 2.5 MG/0.5ML(0.5%) NEB SOLN NEB SCH ×4 (05:57→22:28)
[2020-06-24] MEDS ORDERED: SODIUM CHL 0.9% 1000 ML BAG XX ONE (07:00)
[2020-06-24] MEDS: CITALOPRAM HYDROBR 20 MG TAB PO SCH ×2 (07:34→10:00)
[2020-06-24] MEDS: CHOLECALCIFEROL (VITD3) 2,000 UNIT CAP PO SCH ×2 (07:35→10:00)
[2020-06-24] MEDS: ASCORBIC ACID 1,000 MG TAB PO SCH ×2 (07:35→10:00)
[2020-06-24] MEDS: ZINC SULFATE 220mg CAP or TAB PO SCH ×2 (07:35→10:00)
[2020-06-24] MEDS: CALCITRIOL 0.25 MCG CAP PO SCH ×2 (07:35→10:00)
[2020-06-24] MEDS: LORazepam 0.5 MG TAB PO PRN (07:39)
[2020-06-24 09:48] LABS: Albumin 2.1 g/dL (3.4-5.0)
[2020-06-24 09:52] LABS: Bilirubin, Direct 0.5 mg/dL (0-0.2); Bilirubin, Total 0.8 mg/dL (0.2-1.0); Phosphorus 1.9 mg/dL (2.5-4.90); Total Protein 6.8 g/dL (6.4-8.2)
[2020-06-24] MEDS: NIFEdipine ER 30 MG TAB PO SCH (10:00)
[2020-06-24] MEDS: ENOXAPARIN SOD 40 MG/0.4 ML SYRINGE SC SCH ×2 (10:46→20:11)
[2020-06-24] MEDS: DexAMETHasone SOD PHOS 10MG/1ML VIAL INJ IV SCH (10:47)
[2020-06-24] MEDS: PANTOPRAZOLE 40 MG/10 ML VIAL INJ IV SCH ×2 (10:47→20:10)
[2020-06-24] MEDS ORDERED: POTASSIUM PHOSPHATE 44 MEQ in D5W 5% 250 ML IV ONE (11:00)
[2020-06-24] MEDS: MEROPENEM 500MG IVPB 50 ML IV SCH (13:17)
[2020-06-24] MEDS ORDERED: TPN PER PHARMACY IV NR ×12 (20:00)
[2020-06-24] MEDS ORDERED: EPOETIN ALFA 10,000 UNIT/1 ML VIAL SC ONE (21:00)
[2020-06-25] VITALS (18 sets, daily range): BP systolic 106–206; BP diastolic 44–77
[2020-06-25] MEDS: ACCU-CHEK COMFORT CURVE STRIP VI SCH ×4 (00:12→17:37)
[2020-06-25] MEDS: hydrALAZINE HCL 20 MG/ML VL IV PRN ×3 (00:38→18:46)
[2020-06-25 03:56] LABS: Basophils # (auto) 0 10 ^3/uL (0-0.2); Basophils % (auto) 0.3 % (0.0-2.0); Eosinophils # (auto) 0 10 ^3/uL (0-0.8); Eosinophils % (auto) 0.1 % (0.0-7.0); Hematocrit 26.9 % (36.0-46.0); Hemoglobin 8.6 g/dL (12.2-16.2); Lymphocytes # (auto) 0.2 10 ^3/uL (0.4-5.4); Lymphocytes % (auto) 1.2 % (10.0-50.0); Mean Corpuscular Hemoglobin 28.4 pg (28.0-32.0); Mean Corpuscular Hgb Conc. 32.2 g/dL (32.0-36.0); Mean Corpuscular Volume 88.3 fL (80.0-100.0); Monocytes # (auto) 0.2 10 ^3/uL (0-1.3); Monocytes % (auto) 1.7 % (0.0-12.0); Neutrophils # (auto) 12.7 10 ^3/uL (1.6-8.6); Neutrophils % (auto) 96.7 % (37.0-80.0); Nucleated Red Blood Cells % 0.2 %; Platelet Count (auto) 104 10^3/uL (140-450); Red Blood Cells 3.04 10^6/uL (4.0-5.20); Red Cell Distribution Width 16.8 % (11.8-14.3); White Blood Cell 13.1 10^3/uL (4.4-10.8)
[2020-06-25 04:08] LABS: Calcium 6.1 mg/dL (8.5-10.1); Magnesium 1.9 mg/dL (1.6-2.6); Potassium 5.1 mmol/L (3.5-5.1)
[2020-06-25 04:11] LABS: BUN/Creatinine Ratio 14.8; Bilirubin, Total 0.7 mg/dL (0.2-1.0); Phosphorus 6.8 mg/dL (2.5-4.90); Total Protein 6.9 g/dL (6.4-8.2)
[2020-06-25] MEDS: SUCRALFATE 1 GM/10 ML ORAL SUSP PO SCH ×4 (04:47→22:00)
[2020-06-25] MEDS: hydrALAZINE HCL 25 MG TAB PO SCH ×3 (05:22→22:00)
[2020-06-25] MEDS: ALBUTEROL SULF 2.5 MG/0.5ML(0.5%) NEB SOLN NEB SCH ×3 (06:00→22:50)
[2020-06-25] MEDS: InsuLIN REG 1unit/0.01ml Soln (100units/ml) SC SCH ×4 (06:17→18:02)
[2020-06-25] MEDS: BUDESONIDE (INHALATION) 0.5 MG/2 ML NEB NEB SCH ×2 (07:07→22:50)
[2020-06-25] MEDS: ENOXAPARIN SOD 40 MG/0.4 ML SYRINGE SC SCH ×2 (07:38→22:22)
[2020-06-25] MEDS: ZINC SULFATE 220mg CAP or TAB PO SCH (10:00)
[2020-06-25] MEDS: CHOLECALCIFEROL (VITD3) 2,000 UNIT CAP PO SCH (10:00)
[2020-06-25] MEDS: ASCORBIC ACID 1,000 MG TAB PO SCH (10:00)
[2020-06-25] MEDS: NIFEdipine ER 30 MG TAB PO SCH (10:00)
[2020-06-25] MEDS: CALCITRIOL 0.25 MCG CAP PO SCH (10:00)
[2020-06-25] MEDS: PANTOPRAZOLE 40 MG/10 ML VIAL INJ IV SCH ×2 (10:18→22:21)
[2020-06-25] MEDS: DexAMETHasone SOD PHOS 10MG/1ML VIAL INJ IV SCH (10:19)
[2020-06-25] MEDS: MEROPENEM 500MG IVPB 50 ML IV SCH (10:20)
[2020-06-25] MEDS ORDERED: TPN PER PHARMACY IV NR ×10 (20:00)
[2020-06-26] MEDS: ACCU-CHEK COMFORT CURVE STRIP VI SCH ×2 (00:05→06:21)
[2020-06-26] MEDS: InsuLIN REG 1unit/0.01ml Soln (100units/ml) SC SCH ×2 (00:09→06:22)
[2020-06-26 05:00] VITALS: BP 197/64
[2020-06-26] MEDS: hydrALAZINE HCL 20 MG/ML VL IV PRN (05:10)
[2020-06-26 06:19] LABS: Potassium 3.8 mmol/L (3.5-5.1)
[2020-06-26 06:55] LABS: Albumin 1.9 g/dL (3.4-5.0); BUN/Creatinine Ratio 16.1; Bilirubin, Total 0.6 mg/dL (0.2-1.0); Calcium 6.2 mg/dL (8.5-10.1); Magnesium 2.1 mg/dL (1.6-2.6); Phosphorus 5.4 mg/dL (2.5-4.90); Total Protein 6.3 g/dL (6.4-8.2)
== END 2020-06-26 06:48 | disposition expired | DRG 871 ==
LOC: EDBD 20:17 → ER 20:18 → TELE 20:19 → TELE-EAST 06-07 21:55 → TELE-E-ADS 06-08 23:41 → DOU IN ICU 06-11 20:00 → TELE-EAST 06-25 20:20
PROVIDERS: ADMIT Nurse Practitioner; ATTEND Internal Medicine Pulmonary Disease
PROC: 06HY33Z Insertion of Infusion Device into Lower Vein, Percutaneous Approach (ICD-10-PCS; principal; 2020-06-06)
PROC: 4A143B0 Monitoring of Venous Pressure, Central, Percutaneous Approach (ICD-10-PCS; 2020-06-06)
PROC: 05HB33Z Insertion of Infusion Device into Right Basilic Vein, Percutaneous Approach (ICD-10-PCS; 2020-06-09)
PROC: B54MZZA Ultrasonography of Right Upper Extremity Veins, Guidance (ICD-10-PCS; 2020-06-09)
PROC: XW033E5 Introduction of Remdesivir Anti-infective into Peripheral Vein, Percutaneous Approach, New Technology Group 5 (ICD-10-PCS; 2020-06-11)
PROC: XW13325 Transfusion of Convalescent Plasma (Nonautologous) into Peripheral Vein, Percutaneous Approach, New Technology Group 5 (ICD-10-PCS; 2020-06-11)
PROC: 30233N1 Transfusion of Nonautologous Red Blood Cells into Peripheral Vein, Percutaneous Approach (ICD-10-PCS; 2020-06-11)
PROC: 5A09457 Assistance with Respiratory Ventilation, 24-96 Consecutive Hours, Continuous Positive Airway Pressure (ICD-10-PCS; 2020-06-11)
PROC: 5A1D70Z Performance of Urinary Filtration, Intermittent, Less than 6 Hours Per Day (ICD-10-PCS; 2020-06-14)
PROC: 5A09557 Assistance with Respiratory Ventilation, Greater than 96 Consecutive Hours, Continuous Positive Airway Pressure (ICD-10-PCS; 2020-06-18)
DX: A41.89 Other specified sepsis (principal); U07.1 COVID-19; J12.89 Other viral pneumonia; N18.6 End stage renal disease; J96.01 Acute respiratory failure with hypoxia; K92.2 Gastrointestinal hemorrhage, unspecified; D61.818 Other pancytopenia; I50.30 Unspecified diastolic (congestive) heart failure; D62 Acute posthemorrhagic anemia; I16.1 Hypertensive emergency; I13.2 Hypertensive heart and chronic kidney disease with heart failure and with stage 5 chronic kidney disease, or end stage renal disease; Z99.2 Dependence on renal dialysis; E11.40 Type 2 diabetes mellitus with diabetic neuropathy, unspecified; E78.5 Hyperlipidemia, unspecified; E66.9 Obesity, unspecified; D63.1 Anemia in chronic kidney disease; E11.22 Type 2 diabetes mellitus with diabetic chronic kidney disease; E83.51 Hypocalcemia; Z66 Do not resuscitate; F17.210 Nicotine dependence, cigarettes, uncomplicated; F32.9 Major depressive disorder, single episode, unspecified; F41.9 Anxiety disorder, unspecified; G40.909 Epilepsy, unspecified, not intractable, without status epilepticus; I25.10 Atherosclerotic heart disease of native coronary artery without angina pectoris; I25.2 Old myocardial infarction; Z82.5 Family history of asthma and other chronic lower respiratory diseases; Z82.49 Family history of ischemic heart disease and other diseases of the circulatory system; Z86.14 Personal history of Methicillin resistant Staphylococcus aureus infection; Z83.3 Family history of diabetes mellitus; Z82.3 Family history of stroke; Z88.5 Allergy status to narcotic agent; Z88.8 Allergy status to other drugs, medicaments and biological substances; Z80.7 Family history of other malignant neoplasms of lymphoid, hematopoietic and related tissues; Z87.442 Personal history of urinary calculi; Z86.73 Personal history of transient ischemic attack (TIA), and cerebral infarction without residual deficits; Z90.710 Acquired absence of both cervix and uterus; Z98.82 Breast implant status; Z68.24 Body mass index [BMI] 24.0-24.9, adult
CPT/HCPCS: 36415; 36600; 71045; 71250; 74176; 80048; 80053; 80076; 82040; 82150; 82270; 82728; 82805; 82962; 83010; 83605; 83615; 83690; 83735; 84100; 84443; 84478; 84484; 85007; 85014; 85018; 85025; 85027; 85045; 85379; 85610; 85730; 86141; 86850; 86880; 86900; 86901; 86920; 87040; 87081; 87426; 90935; 92610; 93005; 93970; 94640; 94660; 96365; 96375; C9113; G0378; J0610; J0636; J0696; J0885; J1100; J1642; J1815; J2185; J2405; J2543; J3490; J7060; J7131; P9047